=== PATIENT | female | born 1950 | race Caucasian/White ===

== ENCOUNTER 2017-11-29 19:28 | Observation (INO) | payer OTHER, BC ==
--- NOTE | 2017-11-29 19:32 | PDOC ---
History of Present Illness - General History Source: Patient Exam Limitations: No Limitations - History of Present Illness Initial Comments: 11/29/17 21:09 Patient is a 67 year old female, from [facility], with a significant past medical history of Severe Dysarthria, [place]'s, who presents to the ED with complaints of fever that began 3 days ago while at [place]. As per [facility] patient began experiencing intense fever of 102 while at home which prompted them to have her brought to the ED for further evaluation. Patient reports experiencing unproductive cough. Patient has severe dysarthria so it is difficult to completely understand what patient is verbally saying. Denies chest pain, SOB. Denies nausea, vomiting. Denies contact with sick individuals, out of state travel. Denies dysuria, hematuria, diarrhea, constipation. Denies any other symptoms. Allergies: None Social history: former smoker (last unknown). No alcohol. No illicit drugs. Surgical history PMD: Not on staff <Nicholas Shah - Last Filed: 11/29/17 21:09> <Kylie Garcia - Last Filed: 11/29/17 21:15> - General Chief Complaint: Cold Symptoms Stated Complaint: FEVER Time Seen by Provider: 11/29/17 19:32 Past History <Nicholas Shah - Last Filed: 11/29/17 21:09> - Immunization History Td Vaccination: Yes TDAP Vaccination: Yes Immunization Up to Date: Yes - Suicide/Smoking/Psychosocial Hx Smoking Status: Yes Smoking History: Never smoked Years of Tobacco Use: 0 Number of Cigarettes Smoked Daily: 20 'Breaking Loose' booklet given: 05/07/14 <Kylie Garcia - Last Filed: 11/29/17 21:15> - Past Medical History Allergies/Adverse Reactions: Allergies Allergy/AdvReac Type Severity Reaction Status Date / Time No Known Allergies Allergy Verified 08/14/14 12:30 Home Medications: Ambulatory Orders Clonazepam [KlonoPIN] 0.5 mg PO BID 08/30/12 Fluoxetine HCl 60 mg PO AM 08/14/14 Tetrabenazine [Xenazine] 25 mg PO BID 08/14/14 Acetaminophen 1,000 mg PO BID 11/29/17 Atropine 1% Ophth. Solution - 1 drop PO TID 11/29/17 Calcium Carb/Magnesium Oxid/D3 [Calcium Magnesium + D Tablet] 1 each PO DAILY Clonazepam [Klonopin -] 1 mg PO HS 11/29/17 Glycopyrrolate 1 mg PO BID 11/29/17 Lactose-Reduced Food [Ensure High Protein] 237 ml PO DAILY 11/29/17 Pediatric Multivitamin No.101 [Gummy] 1 each PO DAILY 11/29/17 Ramelteon [Rozerem] 8 mg PO HS 11/29/17 Vitamin B Complex 1 each PO DAILY 11/29/17 Review of Systems - Review of Systems Able to Perform ROS?: Yes Comments:: 11/29/17 21:10 GENERAL/CONSTITUTIONAL: +Fever No chills. No weakness. HEAD, EYES, EARS, NOSE AND THROAT: No change in vision. No ear pain or discharge. No sore throat. CARDIOVASCULAR: No chest pain or shortness of breath. RESPIRATORY: +Cough No wheezing, or hemoptysis. GASTROINTESTINAL: No nausea, vomiting, diarrhea or constipation. GENITOURINARY: No dysuria, frequency, or change in urination. MUSCULOSKELETAL: No joint or muscle swelling or pain. No neck or back pain. SKIN: No rash NEUROLOGIC: No headache, vertigo, loss of consciousness, or change in strength/ sensation. ENDOCRINE: No increased thirst. No abnormal weight change. HEMATOLOGIC/LYMPHATIC: No anemia, easy bleeding, or history of blood clots. ALLERGIC/IMMUNOLOGIC: No hives or skin allergy. All Other Systems: Reviewed and Negative <Nicholas Shah - Last Filed: 11/29/17 21:09> *Physical Exam - Vital Signs Last Vital Signs Temp Pulse Resp BP Pulse Ox 100.3 F H 86 24 132/74 96 11/29/17 20:20 11/29/17 20:20 11/29/17 19:34 11/29/17 19:34 11/29/17 20:20 - Physical Exam Comments: 11/29/17 21:10 GENERAL: Awake, alert, and fully oriented, in no acute distress HEAD: No signs of trauma EYES: PERRLA, EOMI, sclera anicteric, conjunctiva clear ENT: Auricles normal inspection, hearing grossly normal, nares patent, oropharynx clear without exudates. Moist mucosa NECK: Normal ROM, supple, no lymphadenopathy, JVD, or masses LUNGS: +Rhonchi at bases bilaterally. Breath sounds equal. No wheezes, and no crackles HEART: Regular rate and rhythm, normal S1 and S2, no murmurs, rubs or gallops ABDOMEN: Soft, nontender, normoactive bowel sounds. No guarding, no rebound. No masses EXTREMITIES: Normal range of motion, no edema. No clubbing or cyanosis. No cords, erythema, or tenderness NEUROLOGICAL: +Severe Dysarthria. Cranial nerves II through XII grossly intact. SKIN: Warm, Dry, normal turgor, no rashes or lesions noted. <Nicholas hSah - Last Filed: 11/29/17 21:09> ED Treatment Course - LABORATORY CBC & Chemistry Diagram: 11/29/17 20:10 11/29/17 20:10 - ADDITIONAL ORDERS Additional order review: Laboratory Results 11/29/17 11/29/17 11/29/17 20:20 20:10 20:10 PT with INR 13.6 H INR 1.22 PTT (Actin FS) 27.9 Sodium 136 Potassium 3.8 Chloride 102 Carbon Dioxide 26 Anion Gap 8 BUN 22 H D Creatinine 0.7 Creat Clearance w eGFR > 60 Random Glucose 111 H Calcium 9.0 Total Bilirubin 0.6 D AST 34 D ALT 14 D Alkaline Phosphatase 62 D Creatine Kinase 350 H Creatine Kinase Index 1.4 CK-MB (CK-2) 5.1 H Troponin I 0.01 Total Protein 6.7 Albumin 3.7 Urine Color Dk yellow Urine Appearance Clear Urine pH 6.0 Ur Specific [place] >= 1.030 H Urine Protein 2+ H Urine Glucose (UA) Negative Urine Ketones Trace Urine Blood 1+ H Urine Nitrite Negative Urine Bilirubin 1+ H Urine Urobilinogen 1.0 Urine RBC 2-5 Urine WBC 0-2 Urine Bacteria Few 11/29/17 20:10 RBC 4.56 MCV 85.9 MCHC 34.0 RDW 11.8 MPV 7.7 Neutrophils % 86.6 H D Lymphocytes % 5.5 L D Monocytes % 7.6 Eosinophils % 0.0 D Basophils % 0.3 - Medications Given in the ED: ED Medications Discontinued Medications Generic Name Dose Route Start Last Admin Trade Name Freq PRN Reason Stop Dose Admin Ceftriaxone Sodium 1,000 mg 11/29/17 20:34 11/29/17 20:49 Rocephin - IVPUSH 11/29/17 20:35 1,000 mg ONCE ONE Administration <Nicholas Shah - Last Filed: 11/29/17 21:09> - LABORATORY CBC & Chemistry Diagram: 11/29/17 20:10 11/29/17 20:10 <Kylie Garcia - Last Filed: 11/29/17 21:15> Medical Decision Making - Medical Decision Making 11/29/17 20:05 Pt presents to the ED after sent in from [place] for fever. Patient had fevers reported to [facility] in [place]. Hypoxic into the 90s on ED arrival with rhonchorous breath sounds. Will check labs and CXR, start antibiotics and admit for PNA vs sepsis. 11/29/17 20:35 <Kylie Garcia - Last Filed: 11/29/17 21:15> *DC/Admit/Observation/Transfer - Attestations Scribe Attestion: 11/29/17 21:10 Documentation prepared by Nicholas Shah, acting as medical billing assistant for Kylie aGrcia MD, /DO. <Nicholas Shah - Last Filed: 11/29/17 21:09> - Discharge Dispostion Admit: Yes <Kylie Garcia - Last Filed: 11/29/17 21:15> Diagnosis at time of Disposition: Pneumonia Qualifiers: Pneumonia type: due to unspecified organism Laterality: unspecified laterality Lung location: unspecified part of lung Qualified Code(s): J18.9 - Pneumonia, unspecified organism - Discharge Dispostion Condition at time of disposition: Stable - Referrals Referrals: STAFF,NOT ON [Primary Care Provider] - - Patient Instructions - Post Discharge Activity
[2017-11-29 20:24] LABS: URINE APPEARANCE Clear; URINE BILIRUBIN 1+ (NEGATIVE); URINE GLUCOSE (UA) Negative (NEGATIVE); URINE KETONE Trace (NEGATIVE); URINE NITRITE Negative (NEGATIVE)
[2017-11-29 20:26] LABS: URINE BLOOD 1+ (NEGATIVE); URINE COLOR DK YELLOW; URINE PROTEIN 2+ (NEGATIVE)
[2017-11-29 20:33] LABS: BASO % 0.3 % (0-2.0); HEMATOCRIT 39.2 % (32.4-45.2); HEMOGLOBIN 13.4 GM/dl (10.7-15.3); LYMPH % 5.5 % (8-40); MCH 29.3 pg (25.7-33.7); MEAN CELL VOLUME 85.9 fl (80-96); MEAN PLT VOLUME 7.7 fl (7.5-11.1); MONO % 7.6 % (3.8-10.2); NEUT % 86.6 % (42.8-82.8); PLATELET COUNT 317 K/MM3 (134-434); RBC 4.56 M/mm3 (3.60-5.2); RDW 11.8 % (11.6-15.6); WHITE BLOOD COUNT 11.4 K/mm3 (4.0-10.8)
[2017-11-29] MEDS ORDERED: AZITHROMYCIN IVPB 500 MG in DEXTROSE 5%-WATER - 250 ML IVPB ONE (20:34)
[2017-11-29 20:40] LABS: ACTIVATED PTT 27.9 SECONDS (24.0-38.9)
[2017-11-29 20:42] LABS: URINE BACTERIA FEW /hpf (NEGATIVE); URINE WBC 0-2 (0-5)
[2017-11-29 20:43] LABS: ALBUMIN 3.7 g/dl (3.5-5.0); ALK PHOS 62 U/L (32-92); ANION GAP 8 (8-16); BILIRUBIN,TOTAL 0.6 mg/dl (0.2-1.0); BLOOD UREA NITROGEN 22 mg/dl (7-18); CHLORIDE 102 mmol/L (98-107); CO2 26 mmol/L (22-28); CREATININE 0.7 mg/dl (0.6-1.3); GLUCOSE,RANDOM 111 mg/dl (74-106); POTASSIUM 3.8 mmol/L (3.5-5.1); SGOT/AST 34 U/L (10-42); SGPT/ALT 14 U/L (10-40); SODIUM 136 mmol/L (136-145); TOT PROT 6.7 g/dl (6.4-8.3)
[2017-11-29] MEDS ORDERED: AZITHROMYCIN 500 MG VIAL IVPB ONE (20:43)
[2017-11-29] MEDS ORDERED: cefTRIAXone SODIUM 1 GM VIAL ONE (20:43)
[2017-11-29 20:44] LABS: INR 1.22 (0.82-1.09); PROTHROMBIN TIME (PATIENT) 13.6 SEC (10.2-13.0)
[2017-11-29 21:50] LABS: VENOUS PC02 44.9 mmHg (38-52); VENOUS PH 7.4 (7.32-7.42)
[2017-11-29] MEDS ORDERED: TETRABENAZINE 25 MG PO SCH (22:00)
[2017-11-29] MEDS ORDERED: HEPARIN NA (PORCINE) 5,000 UNITS/ML 1ML VIAL ONE (22:15)
[2017-11-29] MEDS: HEPARIN NA (PORCINE) 5,000 UNITS/ML 1ML VIAL SQ SCH (22:18)
[2017-11-30 01:08] VITALS: BMI 20.5
[2017-11-30] MEDS: GLYCOPYRROLATE 1 MG TABLET PO SCH ×3 (01:25→21:11)
[2017-11-30] MEDS: ATROPINE SO4 1% OPHTH SOLN 5 ML BOTTLE OU SCH ×4 (01:26→21:10)
[2017-11-30] MEDS: clonazePAM 0.5 MG TABLET PO SCH ×4 (01:26→21:11)
[2017-11-30] MEDS: RAMELTEON 8 MG TABLET PO SCH ×2 (01:27→21:11)
[2017-11-30] MEDS: ACETAMINOPHEN 500 MG TABLET (FP) PO SCH ×2 (01:28→09:18)
[2017-11-30] MEDS: FLUoxetine HCL 20 MG CAPSULE (FP) PO SCH ×2 (01:34→09:15)
[2017-11-30] MEDS: HEPARIN NA (PORCINE) 5,000 UNITS/ML 1ML VIAL SQ SCH ×3 (06:12→21:11)
[2017-11-30] MEDS ORDERED: PT OWN MED DRAWER 7, Y5N ONE ×5 (09:09→21:16)
[2017-11-30] MEDS: CEFTRIAXONE 1 G/50 ML PREMIX 50 ML IVPB SCH (09:13)
[2017-11-30] MEDS: CALCIUM 500MG/VIT-D 200 UNITS COMBO TABLET (FP) PO SCH (09:14)
[2017-11-30] MEDS: MULTIVITAMINS (DAILY MVI) TABLET (FP) PO SCH (09:14)
[2017-11-30] MEDS: AZITHROMYCIN IVPB 250 ML IVPB SCH (09:15)
[2017-11-30] MEDS: VITAMIN B COMP W-C 1 EA TABLET PO SCH (09:18)
--- NOTE | 2017-11-30 09:45 | PN ---
Progress Note (short form) - Note Progress Note: ID Consult dictated Acute influenza A ? Secondary bacterial pneumonia Huntingtons chorea Tamiflu Droplet precautions Continue zithromax/ ceftriaxone
[2017-11-30] MEDS ORDERED: ACETAMINOPHEN 1000 MG/100 ML VIAL (NON FORMULARY) IVPB PRN (09:46)
--- NOTE | 2017-11-30 09:56 | PN ---
Physical Exam: SUBJECTIVE: Patient seen and examined this AM. No acute events overnight. She remained fever free but using tylenol as ordered. She is found to be Flu A +. CXR documented by rads as neg. OBJECTIVE: Vital Signs Period Temp Pulse Resp BP Sys/Wills Pulse Ox Last 24 Hr 98.0 F-100.3 F 66-86 18-24 106-132/59-74 90-99 GENERAL: The patient is awake, alert, and fully oriented, in no acute distress. HEAD: Normal with no signs of trauma. LUNGS: Breath sounds equal, clear to auscultation bilaterally, no wheezes, no crackles, no accessory muscle use. HEART: Regular rate and rhythm, S1, S2 without murmur, rub or gallop. ABDOMEN: Soft, nontender, nondistended, normoactive bowel sounds, no guarding, no rebound, no hepatosplenomegaly, no masses. EXTREMITIES: 2+ pulses, warm, well-perfused, no edema. NEUROLOGICAL: Normal speech, gait not observed. PSYCH: Normal mood, normal affect. SKIN: Warm, dry, normal turgor, no rashes or lesions noted Laboratory Results - last 24 hr 11/29/17 11/29/17 11/29/17 20:10 20:10 20:10 WBC 11.4 H RBC 4.56 Hgb 13.4 Hct 39.2 MCV 85.9 MCH 29.3 MCHC 34.0 RDW 11.8 Plt Count 317 D MPV 7.7 Neutrophils % 86.6 H D Lymphocytes % 5.5 L D Monocytes % 7.6 Eosinophils % 0.0 D Basophils % 0.3 PT with INR 13.6 H INR 1.22 PTT (Actin FS) 27.9 VBG pH 7.40 POC VBG pCO2 44.9 POC VBG pO2 115.0 H Mixed VBG HCO3 27.4 H Sodium Potassium Chloride Carbon Dioxide Anion Gap BUN Creatinine Creat Clearance w eGFR Random Glucose Lactic Acid Calcium Total Bilirubin AST ALT Alkaline Phosphatase Creatine Kinase Creatine Kinase Index CK-MB (CK-2) Troponin I Total Protein Albumin Urine Color Urine Appearance Urine pH Ur Specific [place] Urine Protein Urine Glucose (UA) Urine Ketones Urine Blood Urine Nitrite Urine Bilirubin Urine Urobilinogen Urine RBC Urine WBC Urine Bacteria Blood Type Antibody Screen 11/29/17 11/29/17 11/29/17 20:10 20:10 20:10 WBC RBC Hgb Hct MCV MCH MCHC RDW Plt Count MPV Neutrophils % Lymphocytes % Monocytes % Eosinophils % Basophils % PT with INR INR PTT (Actin FS) VBG pH POC VBG pCO2 POC VBG pO2 Mixed VBG HCO3 Sodium 136 Potassium 3.8 Chloride 102 Carbon Dioxide 26 Anion Gap 8 BUN 22 H D Creatinine 0.7 Creat Clearance w eGFR > 60 Random Glucose 111 H Lactic Acid 0.7 Calcium 9.0 Total Bilirubin 0.6 D AST 34 D ALT 14 D Alkaline Phosphatase 62 D Creatine Kinase 350 H Creatine Kinase Index 1.4 CK-MB (CK-2) 5.1 H Troponin I 0.01 Total Protein 6.7 Albumin 3.7 Urine Color Urine Appearance Urine pH Ur Specific [place] Urine Protein Urine Glucose (UA) Urine Ketones Urine Blood Urine Nitrite Urine Bilirubin Urine Urobilinogen Urine RBC Urine WBC Urine Bacteria Blood Type O POSITIVE Antibody Screen Negative 11/29/17 11/29/17 20:20 21:30 WBC RBC Hgb Hct MCV MCH MCHC RDW Plt Count MPV Neutrophils % Lymphocytes % Monocytes % Eosinophils % Basophils % PT with INR INR PTT (Actin FS) VBG pH POC VBG pCO2 POC VBG pO2 Mixed VBG HCO3 Sodium Potassium Chloride Carbon Dioxide Anion Gap BUN Creatinine Creat Clearance w eGFR Random Glucose Lactic Acid Calcium Total Bilirubin AST ALT Alkaline Phosphatase Creatine Kinase Creatine Kinase Index CK-MB (CK-2) Troponin I Total Protein Albumin Urine Color Dk yellow Urine Appearance Clear Urine pH 6.0 Ur Specific [place] >= 1.030 H Urine Protein 2+ H Urine Glucose (UA) Negative Urine Ketones Trace Urine Blood 1+ H Urine Nitrite Negative Urine Bilirubin 1+ H Urine Urobilinogen 1.0 Urine RBC 2-5 Urine WBC 0-2 Urine Bacteria Few Blood Type O POSITIVE Antibody Screen Active Medications Generic Name Dose Route Start Last Admin Trade Name Freq PRN Reason Stop Dose Admin Acetaminophen 1,000 mg 11/30/17 09:46 Ofirmev Injection - IVPB Q6H PRN FEVER OR PAIN Atropine Sulfate 1 drop 11/29/17 22:00 11/30/17 06:13 Atropine 1% Ophth. Solution - OU 1 drop TID SAVANNAH Administration Calcium Carbonate/Cholecalciferol 1 tab 11/30/17 10:00 11/30/17 09:14 Os-Bethel 500+D - PO 1 tab DAILY SAVANNAH Administration Clonazepam 1 mg 11/29/17 22:00 01/06/18 01:26 Klonopin - PO 1 mg HS SAVANNAH Administration Clonazepam 0.5 mg 11/30/17 10:00 11/30/17 09:14 Klonopin - PO 0.5 mg BID@1000,1600 SAVANNAH Administration Fluoxetine HCl 60 mg 11/29/17 22:00 11/30/17 09:15 Prozac - PO 60 mg DAILY SAVANNAH Administration Glycopyrrolate 1 mg 11/29/17 22:00 11/30/17 09:18 Robinul - PO 1 mg BID SAVANNAH Administration Heparin Sodium (Porcine) 5,000 unit 11/29/17 22:00 11/30/17 06:12 Heparin - SQ 5,000 unit TID SAVANNAH Administration CEFTRIAXONE 1 G/50 ML PREMIX 50 mls @ 100 mls/hr 11/30/17 10:00 11/30/17 09: 13 Ceftriaxone 1 Gm-D5w Bag IVPB 100 mls/hr DAILY SAVANNAH Administration Azithromycin 250 mls @ 250 mls/hr 11/30/17 10:00 11/30/17 09:15 Zithromax 500mg Ivpb (Pre-Docked) IVPB 250 mls/hr DAILY SAVANNAH Administration Multivit/Ca Carb/B Cmplx/FA/Prenat 1 tablet 11/30/17 10:00 11/30/17 09:18 Nephro-Vinnie - PO 1 tablet DAILY SAVANNAH Administration Multivitamins/Minerals/Vitamin C 1 tab 11/30/17 10:00 11/30/17 09:14 Tab-A-Vit - PO 1 tab DAILY SAVANNAH Administration Non-Formulary Medication 25 mg 11/29/17 22:00 Tetrabenazine [Xenazine] PO BID SAVANNAH Oseltamivir Phosphate 75 mg 11/30/17 10:00 Tamiflu - PO 12/05/17 09:59 BID SAVANNAH Pantoprazole Sodium 40 mg 11/30/17 10:00 Protonix - PO DAILY SAVANNAH Ramelteon 8 mg 11/29/17 22:00 11/30/17 01:27 Rozerem PO 8 mg HS SAVANNAH Administration ASSESSMENT/PLAN: This 67 yr old female who resided in a correction home presents with 2 days of general malaise and fevers with a finding of Flu A + Pt with significant history of [place]'s and severe dysarthria. 1. Influenza A + -Tamiflu started -appreciate ID input this AM -continuing with azithro and ceftriaxone per ID -tylenol PRN for fever and aches -isolation 2. FEN -po fluids encouraged -regular diet -MVI 3. VTE -heparin SQ 4. [place]tons -continue Rozerem and Xenazine (may take own meds if not offered in house) Visit type - Emergency Visit Emergency Visit: Yes ED Registration Date: 11/29/17 Care time: The patient presented to the Emergency Department on the above date and was hospitalized for further evaluation of their emergent condition. - New Patient This patient is new to me today: Yes Date on this admission: 11/30/17 - Critical Care Critical Care patient: No - Discharge Referral Referred to [facility] Med P.C.: No
[2017-11-30] MEDS ORDERED: [UNRECOGNIZED DRUG - OTHER] PO SCH (10:00)
[2017-11-30] MEDS ORDERED: [UNRECOGNIZED DRUG - REMARK] PO SCH (10:00)
[2017-11-30] MEDS ORDERED: PATIENT'S OWN MEDICATION (NON-FORMULARY) (Vitamin B Complex [Vitamin B Complex] 1 EACH) PO SCH (10:00)
--- NOTE | 2017-11-30 10:50 | EKG ---
Test Reason : Blood Pressure : / mmHG Vent. Rate : 085 BPM Atrial Rate : 085 BPM P-R Int : 152 ms QRS Dur : 072 ms QT Int : 410 ms P-R-T Axes : 090 026 050 degrees QTc Int : 487 ms NORMAL SINUS RHYTHM CANNOT RULE OUT ANTERIOR INFARCT , AGE UNDETERMINED NO PREVIOUS ECGS AVAILABLE Confirmed by SAKSHI CHEN MD ([id number]) on 11/30/2017 10:49:48 AM Referred By: TAMMY Confirmed By:SAKSHI CHEN MD
[2017-11-30] MEDS: OSELTAMIVIR PHOSPHATE 75 MG CAPSULE PO SCH ×2 (11:00→21:12)
[2017-11-30] MEDS: PANTOPRAZOLE 40 MG TABLET (FP) PO SCH (11:00)
[2017-11-30] MEDS: TETRABENAZINE 25 MG PO SCH (21:17)
[2017-12-01] MEDS: HEPARIN NA (PORCINE) 5,000 UNITS/ML 1ML VIAL SQ SCH ×3 (05:36→21:29)
[2017-12-01] MEDS: ATROPINE SO4 1% OPHTH SOLN 5 ML BOTTLE OU SCH ×3 (05:37→21:29)
--- NOTE | 2017-12-01 07:02 | HP ---
This H/P is for pt admission on 11/30/17 Chief Complaint: Fever, chills History of present illness: Pt is from [facility] where the staff found her to have a fever and chills for 2 days prior to admission to ER. Pt states she has a significant history of severe dysarthria and Huntingtons disease and she takes many medications for this. She developed recent fever, chils and body aches for 2 days. She had received the flu shot PCP: not on staff Recent Travel: denies PAST MEDICAL HISTORY: [place]'s disease, severe dysarthria PAST SURGICAL HISTORY: denies Social History: Smoking:former Alcohol:denies Drugs: denies Family History: Allergies No Known Allergies Allergy (Verified 08/14/14 12:30) HOME MEDICATIONS: Home Medications Medication Instructions Recorded Clonazepam [KlonoPIN] 0.5 mg PO BID 08/30/12 Fluoxetine HCl 60 mg PO AM 08/14/14 Tetrabenazine [Xenazine] 25 mg PO BID 08/14/14 Acetaminophen 1,000 mg PO BID 11/29/17 Atropine 1% Ophth. Solution - 1 drop PO TID 11/29/17 Calcium Carb/Magnesium Oxid/D3 1 each PO DAILY 11/29/17 [Calcium Magnesium + D Tablet] Clonazepam [Klonopin -] 1 mg PO HS 11/29/17 Glycopyrrolate 1 mg PO BID 11/29/17 Lactose-Reduced Food [Ensure High 237 ml PO DAILY 11/29/17 Protein] Pediatric Multivitamin No.101 1 each PO DAILY 11/29/17 [Gummy] Ramelteon [Rozerem] 8 mg PO HS 11/29/17 Vitamin B Complex 1 each PO DAILY 11/29/17 REVIEW OF SYSTEMS CONSTITUTIONAL: Absent: +fever, +chills, diaphoresis, +generalized weakness, +malaise, loss of appetite, weight change HEENT: Absent: rhinorrhea, nasal congestion, throat pain, throat swelling, difficulty swallowing, mouth swelling, ear pain, eye pain, visual changes CARDIOVASCULAR: Absent: chest pain, syncope, palpitations, irregular heart rate, lightheadedness , peripheral edema RESPIRATORY: Absent: cough, shortness of breath, dyspnea with exertion, orthopnea, wheezing, stridor, hemoptysis GASTROINTESTINAL: Absent: abdominal pain, abdominal distension, nausea, vomiting, diarrhea, constipation, melena, hematochezia GENITOURINARY: Absent: dysuria, frequency, urgency, hesitancy, hematuria, flank pain, genital pain MUSCULOSKELETAL: Absent: +myalgia, arthralgia, joint swelling, back pain, neck pain SKIN: Absent: rash, itching, pallor HEMATOLOGIC/IMMUNOLOGIC: Absent: easy bleeding, easy bruising, lymphadenopathy, frequent infections ENDOCRINE: Absent: unexplained weight gain, unexplained weight loss, heat intolerance, cold intolerance NEUROLOGIC: Absent: headache, + chronic focal weakness or paresthesias, dizziness, unsteady gait, seizure, mental status changes, bladder or bowel incontinence PSYCHIATRIC: Absent: anxiety, depression, suicidal or homicidal ideation, hallucinations. PHYSICAL EXAMINATION Vital Signs - 24 hr 11/30/17 11/30/17 11/30/17 08:11 19:51 19:52 Temperature 99 F Pulse Rate 60 Respiratory 18 18 Rate Blood Pressure 117/63 O2 Sat by Pulse 95 99 Oximetry (%) 11/30/17 12/01/17 12/01/17 23:39 05:20 06:00 Temperature 98.7 F 98.1 F Pulse Rate 64 Respiratory 18 18 Rate Blood Pressure 137/67 O2 Sat by Pulse 99 96 Oximetry (%) GENERAL: Awake, alert, and fully oriented, in no acute distress. HEAD: Normal with no signs of trauma. EYES: Pupils equal, round and reactive to light, extraocular movements intact, sclera anicteric, conjunctiva clear. No lid lag. EARS, NOSE, THROAT: Ears normal, nares patent, oropharynx clear without exudates. Moist mucous membranes. NECK: Normal range of motion, supple without lymphadenopathy, JVD, or masses. LUNGS: Breath sounds equal, clear to auscultation bilaterally. No wheezes, and no crackles. No accessory muscle use. HEART: Regular rate and rhythm, normal S1 and S2 without murmur, rub or gallop. ABDOMEN: Soft, nontender, not distended, normoactive bowel sounds, no guarding, no rebound, no masses. No hepatomegaly or splenomegaly. MUSCULOSKELETAL: Normal range of motion at all joints. No bony deformities or tenderness. No CVA tenderness. UPPER EXTREMITIES: 2+ pulses, warm, well-perfused. No cyanosis. No clubbing. No peripheral edema. LOWER EXTREMITIES: 2+ pulses, warm, well-perfused. No calf tenderness. No peripheral edema. NEUROLOGICAL: Cranial nerves II-XII intact. Normal speech. Normal gait. PSYCHIATRIC: Cooperative. Good eye contact. Appropriate mood and affect. SKIN: Warm, dry, normal turgor, no rashes or lesions noted, normal capillary refill. ASSESSMENT/PLAN: This 67 yr old female from assisted living home presented with fever and chills. Her flu swab was found to be positive for Influenza A +. 1. Influenza A -CXR neg for loculations or infiltrates -tylenol for aches and fever -isolation -tamiflu -azithromycin/ceftriaxone -ID consult 2. Huntingtons -continue home meds 3. FEN -po hydration -po nutrition encouraged 4. DVT/GI prop 5. Admission for treatment of influenza Visit type - Emergency Visit Emergency Visit: Yes ED Registration Date: 11/29/17 Care time: The patient presented to the Emergency Department on the above date and was hospitalized for further evaluation of their emergent condition. - New Patient This patient is new to me today: Yes Date on this admission: 12/01/17 - Critical Care Critical Care patient: No
--- NOTE | 2017-12-01 07:19 | PN ---
Physical Exam: SUBJECTIVE: Patient seen and examined this AM. No acute events over night. Pt remains on isolation and IV ABT with tamiflu. Afebrile OBJECTIVE: Vital Signs Period Temp Pulse Resp BP Sys/Wills Pulse Ox Last 24 Hr 98.1 F-99 F 60-64 18-18 117-137/63-67 95-99 GENERAL: The patient is awake, alert, and fully oriented, in no acute distress. HEAD: Normal with no signs of trauma. EYES: PERRL, extraocular movements intact, sclera anicteric, conjunctiva clear. No ptosis. ENT: Ears normal, nares patent, oropharynx clear without exudates, moist mucous membranes. + dysarthria NECK: Trachea midline, full range of motion, supple. LUNGS: Breath sounds equal, clear to auscultation bilaterally, no wheezes, no crackles, no accessory muscle use. +mild cough HEART: Regular rate and rhythm, S1, S2 without murmur, rub or gallop. ABDOMEN: Soft, nontender, nondistended, normoactive bowel sounds, no guarding, no rebound, no hepatosplenomegaly, no masses. EXTREMITIES: 2+ pulses, warm, well-perfused, no edema. NEUROLOGICAL: Cranial nerves II through XII grossly intact. Normal speech, gait not observed. PSYCH: Normal mood, normal affect. SKIN: Warm, dry, normal turgor, no rashes or lesions noted Active Medications Generic Name Dose Route Start Last Admin Trade Name Freq PRN Reason Stop Dose Admin Acetaminophen 1,000 mg 11/30/17 09:46 Ofirmev Injection - IVPB Q6H PRN FEVER OR PAIN Atropine Sulfate 1 drop 11/29/17 22:00 12/01/17 05:37 Atropine 1% Ophth. Solution - OU 1 drop TID SAVANNAH Administration Calcium Carbonate/Cholecalciferol 1 tab 11/30/17 10:00 11/30/17 09:14 Os-Bethel 500+D - PO 1 tab DAILY SAVANNAH Administration Clonazepam 1 mg 11/29/17 22:00 11/30/17 21:11 Klonopin - PO 1 mg HS SAVANNAH Administration Clonazepam 0.5 mg 11/30/17 10:00 11/30/17 16:09 Klonopin - PO 0.5 mg BID@1000,1600 SAVANNAH Administration Fluoxetine HCl 60 mg 11/29/17 22:00 11/30/17 09:15 Prozac - PO 60 mg DAILY SAVANNAH Administration Glycopyrrolate 1 mg 11/29/17 22:00 11/30/17 21:11 Robinul - PO 1 mg BID SAVANNAH Administration Heparin Sodium (Porcine) 5,000 unit 11/29/17 22:00 12/01/17 05:36 Heparin - SQ 5,000 unit TID SAVANNAH Administration CEFTRIAXONE 1 G/50 ML PREMIX 50 mls @ 100 mls/hr 11/30/17 10:00 11/30/17 09: 13 Ceftriaxone 1 Gm-D5w Bag IVPB 100 mls/hr DAILY SAVANNAH Administration Azithromycin 250 mls @ 250 mls/hr 11/30/17 10:00 11/30/17 09:15 Zithromax 500mg Ivpb (Pre-Docked) IVPB 250 mls/hr DAILY SAVANNAH Administration Multivit/Ca Carb/B Cmplx/FA/Prenat 1 tablet 11/30/17 10:00 11/30/17 09:18 Nephro-Vinnie - PO 1 tablet DAILY SAVANNAH Administration Multivitamins/Minerals/Vitamin C 1 tab 11/30/17 10:00 11/30/17 09:14 Tab-A-Vit - PO 1 tab DAILY SAVANNAH Administration Non-Formulary Medication 25 mg 11/30/17 22:00 11/30/17 21:17 Tetrabenazine [Xenazine] PO 25 mg 1000,2200 SAVANNAH Administration Oseltamivir Phosphate 75 mg 11/30/17 10:00 11/30/17 21:12 Tamiflu - PO 12/05/17 09:59 75 mg BID SAVANNAH Administration Pantoprazole Sodium 40 mg 11/30/17 10:00 11/30/17 11:00 Protonix - PO 40 mg DAILY SAVANNAH Administration Ramelteon 8 mg 11/29/17 22:00 11/30/17 21:11 Rozerem PO 8 mg HS SAVANNAH Administration ASSESSMENT/PLAN: This 67 yr old female with + influenza A and hx of [place]'s disease. Family very involved with pt care. 1. Influenza A + -appreciate Dr. Hatfield consult -feels CXR could be suspicious for ? PNA, continue with azithromax and ceftriaxone for now -Day 2 of Tamiflu -remained afebrile, tylenol for aches and fever -remains on isolation -staff to contact [facility] for policy of return of pt if stable tomorrow ( may need x days on treatment and fever free before return with + flu) 2. Huntingtons' disease -continue with meds, may take own if not available in house 3. FEN -continue with hydration and nutrition 4. DVT/GI -heparin -protonix Visit type - Emergency Visit Emergency Visit: Yes ED Registration Date: 11/29/17 Care time: The patient presented to the Emergency Department on the above date and was hospitalized for further evaluation of their emergent condition. - New Patient This patient is new to me today: No - Critical Care Critical Care patient: No - Discharge Referral Referred to [facility] Med P.C.: No
[2017-12-01 08:49] LABS: BASO % 0.8 % (0-2.0); EOS % 0.6 % (0-4.5); HEMATOCRIT 35.6 % (32.4-45.2); HEMOGLOBIN 12.4 GM/dl (10.7-15.3); LYMPH % 19.8 % (8-40); MCH 29.8 pg (25.7-33.7); MCHC 34.8 g/dl (32.0-36.0); MEAN CELL VOLUME 85.6 fl (80-96); MEAN PLT VOLUME 8.3 fl (7.5-11.1); MONO % 9.9 % (3.8-10.2); NEUT % 68.9 % (42.8-82.8); PLATELET COUNT 290 K/MM3 (134-434); RBC 4.15 M/mm3 (3.60-5.2); RDW 11.6 % (11.6-15.6); WHITE BLOOD COUNT 4.5 K/mm3 (4.0-10.8)
[2017-12-01 09:03] LABS: ALBUMIN 3.2 g/dl (3.5-5.0); ALK PHOS 73 U/L (32-92); ANION GAP 7 (8-16); BILIRUBIN,TOTAL 0.3 mg/dl (0.2-1.0); BLOOD UREA NITROGEN 17 mg/dl (7-18); CALCIUM 8.6 mg/dl (8.4-10.2); CHLORIDE 106 mmol/L (98-107); CO2 27 mmol/L (22-28); CREATININE 0.7 mg/dl (0.6-1.3); GLUCOSE,RANDOM 92 mg/dl (74-106); POTASSIUM 3.7 mmol/L (3.5-5.1); SGOT/AST 54 U/L (10-42); SGPT/ALT 25 U/L (10-40); SODIUM 140 mmol/L (136-145); TOT PROT 5.9 g/dl (6.4-8.3)
[2017-12-01] MEDS ORDERED: PT OWN MED DRAWER 7, Y5N ONE ×4 (09:11→21:18)
[2017-12-01] MEDS: CALCIUM 500MG/VIT-D 200 UNITS COMBO TABLET (FP) PO SCH (09:42)
[2017-12-01] MEDS: PANTOPRAZOLE 40 MG TABLET (FP) PO SCH (09:42)
[2017-12-01] MEDS: OSELTAMIVIR PHOSPHATE 75 MG CAPSULE PO SCH ×2 (09:42→21:26)
[2017-12-01] MEDS: VITAMIN B COMP W-C 1 EA TABLET PO SCH (09:43)
[2017-12-01] MEDS: MULTIVITAMINS (DAILY MVI) TABLET (FP) PO SCH (09:43)
[2017-12-01] MEDS: CEFTRIAXONE 1 G/50 ML PREMIX 50 ML IVPB SCH (09:44)
[2017-12-01] MEDS: GLYCOPYRROLATE 1 MG TABLET PO SCH ×2 (09:44→21:28)
[2017-12-01] MEDS: FLUoxetine HCL 20 MG CAPSULE (FP) PO SCH (09:44)
[2017-12-01] MEDS: clonazePAM 0.5 MG TABLET PO SCH ×3 (09:44→21:26)
[2017-12-01] MEDS: AZITHROMYCIN IVPB 250 ML IVPB SCH (09:45)
[2017-12-01] MEDS: TETRABENAZINE 25 MG PO SCH ×2 (09:45→21:29)
[2017-12-01] MEDS: RAMELTEON 8 MG TABLET PO SCH (21:28)
[2017-12-02 06:14] VITALS: TEMP 98
[2017-12-02] MEDS: HEPARIN NA (PORCINE) 5,000 UNITS/ML 1ML VIAL SQ SCH ×2 (06:36→13:53)
[2017-12-02] MEDS: ATROPINE SO4 1% OPHTH SOLN 5 ML BOTTLE OU SCH ×2 (06:36→13:54)
--- NOTE | 2017-12-02 07:54 | DS ---
Physical Exam: SUBJECTIVE: Patient seen and examined, reports feeling much improved, denies any tactile fevers, anxious to go home OBJECTIVE: : Pt is from [facility] assisted housing where the staff found her to have a fever and chills for 2 days prior to admission to ER. Pt states she has a significant history of severe dysarthria and Huntingtons disease and she takes many medications for this. She developed recent fever, chils and body aches for 2 days. She had received the flu shot Vital Signs Period Temp Pulse Resp BP Sys/Wills Pulse Ox Last 24 Hr 98.0 F-98.2 F 63-66 17-19 110-143/58-72 93-98 PHYSICAL EXAM GENERAL: The patient is awake, alert, and fully oriented, in no acute distress. HEAD: Normal with no signs of trauma. EYES: PERRL, extraocular movements intact, sclera anicteric, conjunctiva clear. ENT: Ears normal, nares patent, oropharynx clear without exudates, moist mucous membranes. NECK: Trachea midline, full range of motion, supple. LUNGS: Breath sounds equal, clear to auscultation bilaterally, no wheezes, no crackles, no accessory muscle use. HEART: Regular rate and rhythm, S1, S2 without murmur, rub or gallop. ABDOMEN: Soft, nontender, nondistended, normoactive bowel sounds, no guarding, no rebound, no hepatosplenomegaly, no masses. EXTREMITIES: 2+ pulses, warm, well-perfused, no edema. NEUROLOGICAL: severe dysarthria, Cranial nerves II through XII grossly intact. Normal speech, gait not observed. PSYCH: Normal mood, normal affect. SKIN: Warm, dry, normal turgor, no rashes or lesions noted. LABS Laboratory Results - last 24 hr 12/01/17 12/01/17 08:00 08:00 WBC 4.5 D RBC 4.15 Hgb 12.4 Hct 35.6 MCV 85.6 MCH 29.8 MCHC 34.8 RDW 11.6 Plt Count 290 MPV 8.3 Neutrophils % 68.9 D Lymphocytes % 19.8 D Monocytes % 9.9 Eosinophils % 0.6 D Basophils % 0.8 Sodium 140 Potassium 3.7 Chloride 106 Carbon Dioxide 27 Anion Gap 7 L BUN 17 D Creatinine 0.7 Creat Clearance w eGFR > 60 Random Glucose 92 Calcium 8.6 Total Bilirubin 0.3 D AST 54 H D ALT 25 D Alkaline Phosphatase 73 Total Protein 5.9 L Albumin 3.2 L Microbiology 11/29/17 20:10 Blood - Peripheral Venous Blood Culture - Preliminary NO GROWTH OBTAINED AFTER 48 HOURS, INCUBATION TO CONTINUE FOR 3 DAYS. 11/29/17 20:10 Blood - Peripheral Venous Blood Culture - Preliminary NO GROWTH OBTAINED AFTER 48 HOURS, INCUBATION TO CONTINUE FOR 3 DAYS. 11/29/17 20:10 Urine - Urine Clean Catch Urine Culture - Final NO GROWTH OBTAINED 11/29/17 21:30 Nasopharyngeal Swab Influenza Types A,B Antigen (VIVIANE) - Final , + influenza a 11/29/17 21:30 Nasopharyngeal Swab - Final IMAGING chest xray: no infiltrate no effusion noted HOSPITAL COURSE: 1. Patient was admitted from the emergency department to observation for Influenza A +, Dr. Hatfield, infectious disease, consulted and followed patient throughout admission, patient as treated with tamiflu (11/29/17 12/02/17). In addition she was treated empirically with Zithromax and rocephin (11/29/17 -). patient has a past medical history aguilar's chorea, home medications was continue. PLAN -discharge to assisted living facil [facility], visiting nurse consulted - continue tamiflu for a total of 5 days Date of Admission:11/29/17 Date of Discharge: 12/02/17 Minutes to complete discharge: 45 Discharge Summary Reason For Visit: FEVER Current Active Problems Pneumonia (Acute) Condition: Stable - Instructions Referrals: STAFF,NOT ON [Primary Care Provider] - - Home Medications Comprehensive Discharge Medication List: Ambulatory Orders Clonazepam [KlonoPIN] 0.5 mg PO BID 08/30/12 Fluoxetine HCl 60 mg PO AM 08/14/14 Tetrabenazine [Xenazine] 25 mg PO BID 08/14/14 Acetaminophen 1,000 mg PO BID 11/29/17 Atropine 1% Ophth. Solution - 1 drop PO TID 11/29/17 Calcium Carb/Magnesium Oxid/D3 [Calcium Magnesium + D Tablet] 1 each PO DAILY Clonazepam [Klonopin -] 1 mg PO HS 11/29/17 Glycopyrrolate 1 mg PO BID 11/29/17 Lactose-Reduced Food [Ensure High Protein] 237 ml PO DAILY 01/05/18 Pediatric Multivitamin No.101 [Gummy] 1 each PO DAILY 11/29/17 Ramelteon [Rozerem] 8 mg PO HS 11/29/17 Vitamin B Complex 1 each PO DAILY 11/29/17 This patient is new to me today: Yes Date on this admission: 12/02/17 Emergency Visit: Yes ED Registration Date: 11/29/17 Care time: The patient presented to the Emergency Department on the above date and was hospitalized for further evaluation of their emergent condition. Critical Care patient: No - Discharge Referral Referred to [facility] Med P.C.: No
--- NOTE | 2017-12-02 09:05 | PN ---
Progress Note, Physician History of Present Illness: Awake, alert Dysarthric Offers no complaints Temps down Afebrile WBC improved - Current Medication List Current Medications: Active Medications Acetaminophen (Ofirmev Injection -) 1,000 mg IVPB Q6H PRN PRN Reason: FEVER OR PAIN Atropine Sulfate (Atropine 1% Ophth. Solution -) 1 drop OU TID [facility] Last Admin: 12/02/17 06:36 Dose: 1 drop Calcium Carbonate/Cholecalciferol (Os-Bethel 500+D -) 1 tab PO DAILY [facility] Last Admin: 12/01/17 09:42 Dose: 1 tab Clonazepam (Klonopin -) 1 mg PO HS [facility] Last Admin: 12/01/17 21:26 Dose: 1 mg Clonazepam (Klonopin -) 0.5 mg PO BID@1000,1600 [facility] Last Admin: 12/01/17 17:06 Dose: 0.5 mg Fluoxetine HCl (Prozac -) 60 mg PO DAILY [facility] Last Admin: 12/01/17 09:44 Dose: 60 mg Glycopyrrolate (Robinul -) 1 mg PO BID [facility] Last Admin: 12/01/17 21:28 Dose: 1 mg Heparin Sodium (Porcine) (Heparin -) 5,000 unit SQ TID [facility] Last Admin: 12/02/17 06:36 Dose: 5,000 unit CEFTRIAXONE 1 G/50 ML PREMIX (Ceftriaxone 1 Gm-D5w Bag) 50 mls @ 100 mls/hr IVPB DAILY [facility] Last Admin: 12/01/17 09:44 Dose: 100 mls/hr Azithromycin (Zithromax 500mg Ivpb (Pre-Docked)) 250 mls @ 250 mls/hr IVPB DAILY [facility] Last Admin: 12/01/17 09:45 Dose: 250 mls/hr Multivit/Ca Carb/B Cmplx/FA/Prenat (Nephro-Vinnie -) 1 tablet PO DAILY [facility] Last Admin: 12/01/17 09:43 Dose: 1 tablet Multivitamins/Minerals/Vitamin C (Tab-A-Vit -) 1 tab PO DAILY [facility] Last Admin: 12/01/17 09:43 Dose: 1 tab Non-Formulary Medication (Tetrabenazine [Xenazine]) 25 mg PO 1000,2200 [facility] Last Admin: 12/01/17 21:29 Dose: 25 mg Oseltamivir Phosphate (Tamiflu -) 75 mg PO BID [facility] Stop: 12/05/17 09:59 Last Admin: 12/01/17 21:26 Dose: 75 mg Pantoprazole Sodium (Protonix -) 40 mg PO DAILY [facility] Last Admin: 12/01/17 09:42 Dose: 40 mg Ramelteon (Rozerem) 8 mg PO HS [facility] Last Admin: 12/01/17 21:28 Dose: 8 mg - Objective Vital Signs: Vital Signs Temperature 98.0 F 12/02/17 06:00 Pulse Rate 66 12/02/17 06:00 Respiratory Rate 12/02/17 06:00 Blood Pressure 143/72 12/02/17 06:00 O2 Sat by Pulse Oximetry (%) 93 L 12/02/17 06:00 Constitutional: Yes: No Distress, Cachectic Cardiovascular: Yes: Regular Rate and Rhythm, S1, S2 Respiratory: Yes: CTA Bilaterally Gastrointestinal: Yes: Normal Bowel Sounds, Soft. No: Tenderness Edema: No Integumentary: Yes: Other (non-pruritic rash on abdomen, back) Labs: CBC, BMP 12/01/17 08:00 12/01/17 08:00 INR, PTT INR 1.22 (0.82-1.09) 11/29/17 20:10 Assessment/Plan Acute Influenza A ? Drug rash Huntingtons chorea D/C antibiotics Complete 5d course po Tamiflu OK for discharge from ID standpoint
[2017-12-02] MEDS ORDERED: PT OWN MED DRAWER 7, Y5N ONE ×2 (09:11→13:28)
[2017-12-02 09:23] LABS: BASO % 0.8 % (0-2.0); EOS % 0.5 % (0-4.5); HEMATOCRIT 38.7 % (32.4-45.2); HEMOGLOBIN 12.9 GM/dl (10.7-15.3); MCH 28.6 pg (25.7-33.7); MCHC 33.3 g/dl (32.0-36.0); MEAN CELL VOLUME 85.8 fl (80-96); MEAN PLT VOLUME 8.2 fl (7.5-11.1); MONO % 10.6 % (3.8-10.2); NEUT % 56.1 % (42.8-82.8); PLATELET COUNT 310 K/MM3 (134-434); RBC 4.51 M/mm3 (3.60-5.2); RDW 11.4 % (11.6-15.6)
[2017-12-02] MEDS: PANTOPRAZOLE 40 MG TABLET (FP) PO SCH (09:49)
[2017-12-02] MEDS: FLUoxetine HCL 20 MG CAPSULE (FP) PO SCH (09:49)
[2017-12-02] MEDS: clonazePAM 0.5 MG TABLET PO SCH (09:49)
[2017-12-02] MEDS: MULTIVITAMINS (DAILY MVI) TABLET (FP) PO SCH (09:49)
[2017-12-02] MEDS: CALCIUM 500MG/VIT-D 200 UNITS COMBO TABLET (FP) PO SCH (09:49)
[2017-12-02] MEDS: OSELTAMIVIR PHOSPHATE 75 MG CAPSULE PO SCH (09:49)
[2017-12-02] MEDS: VITAMIN B COMP W-C 1 EA TABLET PO SCH (09:50)
[2017-12-02] MEDS: TETRABENAZINE 25 MG PO SCH (09:51)
[2017-12-02 10:18] LABS: ALBUMIN 3.3 g/dl (3.5-5.0); ALK PHOS 80 U/L (32-92); ANION GAP 6 (8-16); BLOOD UREA NITROGEN 17 mg/dl (7-18); CALCIUM 8.7 mg/dl (8.4-10.2); CHLORIDE 106 mmol/L (98-107); CO2 29 mmol/L (22-28); CREATININE 0.7 mg/dl (0.6-1.3); GLUCOSE,RANDOM 104 mg/dl (74-106); POTASSIUM 4.2 mmol/L (3.5-5.1); SGOT/AST 37 U/L (10-42); SGPT/ALT 27 U/L (10-40); SODIUM 141 mmol/L (136-145); TOT PROT 6.2 g/dl (6.4-8.3)
--- NOTE | 2017-12-02 12:16 | CONS ---
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 She is a resident of [facility] with a past medical history of Tyndall's Chorea, dysarthria who presented to the emergency room with a 3-day history of fever. As per records, she had been having a high-grade fever to 102 while at the [place] [facility]. She was brought to the emergency room for evaluation. She was noted to have cough. The patient was able to give a limited history secondary to severe dysarthria. She denied any chest pain or shortness of breath. No nausea or vomiting. No known ill contacts. She did receive influenza vaccine. PAST MEDICAL HISTORY: Positive for Tyndall's Chorea. ALLERGIES: No known allergies. SOCIAL HISTORY: She resides in a [place] [facility] facility. She is a former smoker. No history of alcohol or illicit drug use. OUTPATIENT MEDICATIONS: Include Klonopin, Xenazine, atropine ophthalmic solution, Klonopin, Ramelteon. SYSTEMS REVIEW: Neurologic: Positive for Tyndall's Chorea. Cardiac: Negative chest pain or palpitations. Respiratory: As per HPI. Gastrointestinal: Negative vomiting or diarrhea. Genitourinary: Negative for urinary tract infection. LABORATORY DATA: White blood cell count 11.4, hematocrit 39.2, platelet count 317, differential 86 neutrophils, 5 lymphocytes, 7 monocytes. BUN 22, creatinine 0.7. Liver enzymes within normal limits. Urinalysis 0-2 white cells. Chest x-ray negative for acute infiltrate. Influenza screen positive for influenza A. PHYSICAL EXAMINATION: General: She is awake and responsive. She is in no acute distress. Breathing is not labored. She is noted to have choreaform movements. Appears cachectic. Vital Signs: Temperature 98, T-max 100.3, blood pressure 111/59, pulse 80 and regular, respirations 16 per minute. HEENT: Sclerae anicteric. Dry mucous membranes. Heart: Sounds S1, S2. Lungs: Scattered rhonchi. Abdomen: Soft. No tenderness elicited. No mass, rebound, or rigidity. Extremities: Negative for edema. IMPRESSION: 1. Acute influenza A. 2. Possible secondary bacterial pneumonia. 3. Tyndall's Chorea. PLAN: Await cultures. Droplet precautions. Tamoxifen 75 mg p.o. b.i.d. for 5 days. Continue Zithromax and ceftriaxone pending cultures for possible secondary to bacterial infection. We will follow. Thank you for the kind referral. HECTOR FARRIS M.D. [id number]
[2017-12-02 13:30] LABS: BILIRUBIN,TOTAL 0.3 mg/dl (0.2-1.0)
[2017-12-02] MEDS: GLYCOPYRROLATE 1 MG TABLET PO SCH (13:54)
[2017-12-02 14:13] VITALS: BP 140/70; PULSE 72
== END 2017-12-02 15:03 | disposition home health service (06) ==
LOC: FER 19:28 → FM/S 23:18 → INTOOBSV 23:18
PROVIDERS: ADMIT Internal Medicine; ATTEND Nurse Practitioner Family
PROC: 3E03329 Introduction of Other Anti-infective into Peripheral Vein, Percutaneous Approach (ICD-10-PCS; principal; 2017-11-29)
PROC: 3E013GC Introduction of Other Therapeutic Substance into Subcutaneous Tissue, Percutaneous Approach (ICD-10-PCS; 2017-11-29)
DX: J09.X2 Influenza due to identified novel influenza A virus with other respiratory manifestations (principal); G10 Huntington's disease; R47.1 Dysarthria and anarthria; Z87.891 Personal history of nicotine dependence
CPT/HCPCS: 36415; 71045-TC; 80053; 81003; 81015; 82550; 82553; 82803; 83605; 84484; 85025; 85610; 85730; 86850; 86900; 86901; 87040; 87086; 87804; 93005; 96365; 96372; 96375; 99283-25; G0378; J1644

== ENCOUNTER 2018-03-04 21:06 | Inpatient (IN) | payer OTHER, BC ==
[2018-03-04 22:25] VITALS: BMI 20.4
[2018-03-07 06:35] VITALS: BP 150/90; PULSE 90; TEMP 98.5
== END 2018-03-07 12:45 | disposition home health service (06) | DRG 193 ==
LOC: FER 21:06 → FM/S 03-05 13:54
PROVIDERS: ADMIT Internal Medicine; ATTEND Nurse Practitioner Family
DX: J10.08 Influenza due to other identified influenza virus with other specified pneumonia (principal); E43 Unspecified severe protein-calorie malnutrition; G10 Huntington's disease; J98.11 Atelectasis; R13.10 Dysphagia, unspecified; F41.9 Anxiety disorder, unspecified; F32.9 Major depressive disorder, single episode, unspecified; R47.1 Dysarthria and anarthria; F17.210 Nicotine dependence, cigarettes, uncomplicated; J44.9 Chronic obstructive pulmonary disease, unspecified
CPT/HCPCS: 36415; 71045-TC-FY; 80048; 80053; 81003; 81015; 82550; 83605; 83735; 84100; 84484; 85025; 85027; 87040; 87086; 87804; 90670; 93005; 94010; 94640; 97116-GP; 97162-GP; 99285-25; J0131; J1644; J7030; J7620

== ENCOUNTER 2018-03-07 16:28 | Inpatient (IN) | payer OTHER, BC ==
--- NOTE | 2018-03-07 16:38 | PDOC ---
History of Present Illness - General Chief Complaint: Cold Symptoms Stated Complaint: FEVER Time Seen by Provider: 03/07/18 16:31 - History of Present Illness Initial Comments: 03/07/18 16:48 68 year old female with a PMH of Steve's Disease with associated severe dysarthria presents to our ED from [facility] for a c/o AMS. Patient was discharged from our facility earlier today following an evaluation following a diagnosis of Influenza B. At presentation patient febrile (100.9 - rectal), other VS unremarkable. Call placed to [facility] for further information. Past History - Past Medical History Allergies/Adverse Reactions: Allergies Allergy/AdvReac Type Severity Reaction Status Date / Time lactose AdvReac Intermediate Verified 01/22/18 11:07 Home Medications: Ambulatory Orders clonazePAM [KlonoPIN] 0.5 mg PO BID 08/30/12 Fluoxetine HCl 60 mg PO AM 08/14/14 Tetrabenazine [Xenazine] 25 mg PO BID 08/14/14 Atropine 1% Ophth. Solution - 1 drop PO TID 11/29/17 Glycopyrrolate 1 mg PO BID 11/29/17 Lactose-Reduced Food [Ensure High Protein] 237 ml PO DAILY 11/29/17 Pediatric Multivitamin No.101 [Gummy] 1 each PO DAILY 11/29/17 Ramelteon [Rozerem] 8 mg PO HS 11/29/17 Vitamin B Complex 1 each PO DAILY 11/29/17 clonazePAM [Klonopin -] 1 mg PO HS 11/29/17 Albuterol Sulfate Inhaler - [Ventolin HFA Inhaler -] 2 inh PO Q4H PRN #1 inh 01/12 Calcium Carb/Mag Ox/Zinc Sulf [Jntupjk-Tyvmpjhld-Qaup Tablet] 1 each PO DAILY Acetaminophen [Tylenol .Regular Strength -] 650 mg PO Q4H PRN tablet 03/07/18 Albuterol 0.083% Nebulizer Tian[place] [Ventolin 0.083% Nebulizer Soln -] 1 neb NEB Q4H PRN #120 vial 03/07/18 Calcium 500Mg/Vit-D 200 Units [Os-Bethel 500+D -] 1 tab PO DAILY tab 03/07/18 Lactobacillus Acidophilus [Bacid -] 1 cap PO DAILY #30 cap 03/07/18 Nebulizer and Compressor [[place] Choice Nebulizer] 1 each MC DAILY #1 each 03/07 Oseltamivir Phosphate [Tamiflu -] 75 mg PO BID #8 capsule 03/07/18 COPD: No Psychiatric Problems: Yes (ANXIETY,INSOMNIA, DEPRESSION) - Immunization History Td Vaccination: Yes TDAP Vaccination: Yes Immunization Up to Date: Yes - Suicide/Smoking/Psychosocial Hx Smoking Status: Yes Smoking History: Former smoker Years of Tobacco Use: 0 Have you smoked in the past 12 months: No Number of Cigarettes Smoked Daily: 20 If you are a former smoker, when did you quit?: 2013 'Breaking Loose' booklet given: 05/07/14 Hx Alcohol Use: No Drug/Substance Use Hx: No Substance Use Type: None Hx Substance Use Treatment: No Review of Systems - Review of Systems Able to Perform ROS?: No (dysarthria) *Physical Exam - Physical Exam General Appearance: Yes: Appropriately Dressed, Other (dysrathric (baselien)) HEENT: positive: EOMI, LINDA Respiratory/Chest: positive: Lungs Clear, Normal Breath Sounds Cardiovascular: positive: S1, S2 Vascular Pulses: Dorsalis-Pedis (R): 2+, Doralis-Pedis (L): 2+ Gastrointestinal/Abdominal: positive: Normal Bowel Sounds, Soft Extremity: positive: Normal Capillary Refill, Normal Inspection. negative: Coldness, Cyanosis Integumentary: positive: Normal Color, Dry, Warm Neurologic: positive: Fully Oriented, Alert ED Treatment Course - LABORATORY CBC & Chemistry Diagram: 03/08/18 07:15 03/08/18 07:15 Medical Decision Making - Medical Decision Making 03/07/18 16:41 68 year old female with a PMH of Steve's Disease w/associated severe dysarthria presents to ED from [facility] with c/o fever (reported Tmax 101 @ [facility]) as well as "obtunded" Rectal Temp @ our facility 100.9, oral temp 98.5; other VS unremarkable; patient alert, responsive @ our facility 03/07/18 17:25 Case d/w Dr Pollard, patient's PMD - states if patient hemodynamically stable, prefers discharge to [place]. 03/07/18 17:42 Family @ bedside. Note patient @ baseline mental status. Case d/w HCP, [place] -- patient not accepted for return admission as temperatute > 101. 03/07/18 18:39 Patient to be admitted for further evaluation. Labs, XR, ECG pending. *DC/Admit/Observation/Transfer Diagnosis at time of Disposition: Influenza - Discharge Dispostion Condition at time of disposition: Good Admit: No - Referrals - Patient Instructions - Post Discharge Activity
[2018-03-07 16:46] VITALS: BMI 22.3
--- NOTE | 2018-03-07 17:21 | PDOC ---
Attending Attestation - Resident Resident Name: Mayra Ortiz - ED Attending Attestation I have performed the following: I have examined & evaluated the patient, The case was reviewed & discussed with the resident, I agree w/resident's findings & plan, Exceptions are as noted - HPI HPI: 03/07/18 17:16 Ms Mcintyre is a 68 yo F with a history of Perquimans's chorea s/p recent admission and discharge today from the inpatient unit due to fever. PT s/p CXR which was negative, UA which was negative, Urine and blood cultures negative. Pt ultimately found to have Influenza B Pt has been on Tamiflu Apparently stable on the inpatient unit Pt was sent to the ER when she was reportedly found diaphoretic, and Altered Upon arrival to the ER, pt rectal temp 100.9 She denies cough, denies shortness of breath. Denies chest pain. Denies abdominal pain, nausea, vomiting, diarrhea. Denies dysuria. During admission swallow study revealed aspiration, PEG was recommended Family refused 03/07/18 17:19 - Physicial Exam PE: 03/07/18 17:19 On examination: Pt is awake and alert Responsive to my questioning Rectal temp 100.9 RRR Coarse breath sounds No abd tenderness 03/07/18 17:20 - Medical Decision Making 03/07/18 17:21 68 yo F recently admitted for fever, found to have influenza on Tamiflu Pt discharged to home today Upon arrival to the [facility] facility, pt was reportedly altered PT is currently not altered Will contact PMD Dr Pollard Pt admitted to hospitalist service Labs and cxr pending Clinical impression: fevers, initial presentation Discharge Disposition - Diagnosis Influenza - Discharge Dispostion Condition at time of disposition: Good Last Admission D/C Date: 03/07/18 Admit: Yes - Referrals - Patient Instructions - Post Discharge Activity
[2018-03-07] MEDS ORDERED: ACETAMINOPHEN 650 MG/20.3 ML ORAL SOLUTION (CUPS) PO ONE (18:05)
[2018-03-07] MEDS ORDERED: ACETAMINOPHEN 650 MG/20.3 ML ORAL SOLUTION (CUPS) ONE (18:12)
[2018-03-07] MEDS ORDERED: ACETAMINOPHEN 325 MG TABLET (FP) ONE (18:16)
[2018-03-07] MEDS ORDERED: SODIUM CHLORIDE 0.9% 500 ML INFUS.BAG IV ONE (18:27)
[2018-03-07] MEDS ORDERED: ACETAMINOPHEN 1000 MG/100 ML VIAL (NON FORMULARY) IVPB ONE (19:01)
[2018-03-07] MEDS ORDERED: ACETAMINOPHEN INJECTION 100 ML IVPB ONE (19:03)
[2018-03-07 19:34] LABS: BASO % 0.5 % (0-2.0); HEMOGLOBIN 13.4 GM/dl (10.7-15.3); LYMPH % 11.6 % (8-40); MCHC 33.6 g/dl (32.0-36.0); MEAN CELL VOLUME 83.2 fl (80-96); MEAN PLT VOLUME 7.3 fl (7.5-11.1); MONO % 4.3 % (3.8-10.2); NEUT % 83.6 % (42.8-82.8); PLATELET COUNT 373 K/MM3 (134-434); RBC 4.81 M/mm3 (3.60-5.2); RDW 12.2 % (11.6-15.6); WHITE BLOOD COUNT 9.9 K/mm3 (4.0-10.8)
[2018-03-07 19:40] LABS: ALBUMIN 3.8 g/dl (3.5-5.0); ALK PHOS 81 U/L (32-92); ANION GAP 8 (8-16); BILIRUBIN,TOTAL 0.6 mg/dl (0.2-1.0); BLOOD UREA NITROGEN 17 mg/dl (7-18); CALCIUM 9.5 mg/dl (8.4-10.2); CHLORIDE 102 mmol/L (98-107); CO2 26 mmol/L (22-28); GLUCOSE,RANDOM 112 mg/dl (74-106); POTASSIUM 3.8 mmol/L (3.5-5.1); SGOT/AST 20 U/L (10-42); SGPT/ALT 13 U/L (10-40); SODIUM 136 mmol/L (136-145); TOT PROT 7.4 g/dl (6.4-8.3)
[2018-03-07 19:47] LABS: CREATININE 0.8 mg/dl (0.6-1.3)
--- NOTE | 2018-03-07 20:46 | HP ---
CHIEF COMPLAINT: Fever PCP: Dr. Pollard HISTORY OF PRESENT ILLNESS: This is a 68 y/o woman with a PMH of Anthony's Chorea, Anxiety, Depression. Who presents from the [facility] sent in for fever and altered mental status. Patient was recently admitted 03/05-03/07 for Influenza. Per nursing staff, patient is not at baseline- more confused, lethargic. ER course was notable for: (1) T max 100.9 (2) Neutrophils 83.6 (3) Pulse Ox 84%, improved 96% on 2L Recent Travel: None PAST MEDICAL HISTORY: See HPI PAST SURGICAL HISTORY: None Social History: Smoking: Former Alcohol: None Drugs: None Resides at the [facility] Family History: brother Stone's Chorea Father Stone's Chorea Allergies lactose Adverse Reaction (Intermediate, Verified 01/22/18 11:07) abd. cramps and diarehha HOME MEDICATIONS: Home Medications Medication Instructions Recorded clonazePAM [KlonoPIN] 0.5 mg PO BID 08/30/12 Fluoxetine HCl 60 mg PO AM 08/14/14 Tetrabenazine [Xenazine] 25 mg PO BID 08/14/14 Atropine 1% Ophth. Solution - 1 drop PO TID 11/29/17 Glycopyrrolate 1 mg PO BID 11/29/17 Lactose-Reduced Food [Ensure High 237 ml PO DAILY 11/29/17 Protein] Pediatric Multivitamin No.101 1 each PO DAILY 11/29/17 [Gummy] Ramelteon [Rozerem] 8 mg PO HS 11/29/17 Vitamin B Complex 1 each PO DAILY 11/29/17 clonazePAM [Klonopin -] 1 mg PO HS 11/29/17 Albuterol Sulfate Inhaler - 2 inh PO Q4H PRN #1 inh 01/24/18 [Ventolin HFA Inhaler -] Calcium Carb/Mag Ox/Zinc Sulf 1 each PO DAILY 03/05/18 [Kmfbtyi-Jerrmkoiy-Dcdj Tablet] Acetaminophen [Tylenol .Regular 650 mg PO Q4H PRN tablet 03/07/18 Strength -] Albuterol 0.083% Nebulizer Tianna 1 neb NEB Q4H PRN #120 vial 03/07/18 [Ventolin 0.083% Nebulizer Soln -] Calcium 500Mg/Vit-D 200 Units 1 tab PO DAILY tab 03/07/18 [Os-Bethel 500+D -] Lactobacillus Acidophilus [Bacid -] 1 cap PO DAILY #30 cap 03/07/18 Nebulizer and Compressor [[place] 1 each MC DAILY #1 each 03/07/18 Choice Nebulizer] Oseltamivir Phosphate [Tamiflu -] 75 mg PO BID #8 capsule 03/07/18 REVIEW OF SYSTEMS CONSTITUTIONAL: Fever Absent: chills, diaphoresis, generalized weakness, malaise, loss of appetite, weight change HEENT: Absent: rhinorrhea, nasal congestion, throat pain, throat swelling, difficulty swallowing, mouth swelling, ear pain, eye pain, visual changes CARDIOVASCULAR: Absent: chest pain, syncope, palpitations, irregular heart rate, lightheadedness , peripheral edema RESPIRATORY: Absent: cough, shortness of breath, dyspnea with exertion, orthopnea, wheezing, stridor, hemoptysis GASTROINTESTINAL: Absent: abdominal pain, abdominal distension, nausea, vomiting, diarrhea, constipation, melena, hematochezia GENITOURINARY: Absent: dysuria, frequency, urgency, hesitancy, hematuria, flank pain, genital pain MUSCULOSKELETAL: Absent: myalgia, arthralgia, joint swelling, back pain, neck pain SKIN: Absent: rash, itching, pallor HEMATOLOGIC/IMMUNOLOGIC: Absent: easy bleeding, easy bruising, lymphadenopathy, frequent infections ENDOCRINE: Absent: unexplained weight gain, unexplained weight loss, heat intolerance, cold intolerance NEUROLOGIC: mental status changes Absent: headache, focal weakness or paresthesias, dizziness, unsteady gait, seizure, bladder or bowel incontinence PSYCHIATRIC: Absent: anxiety, depression, suicidal or homicidal ideation, hallucinations. PHYSICAL EXAMINATION Vital Signs - 24 hr 03/07/18 16:30 Temperature 100.9 F H Pulse Rate 83 Respiratory 20 Rate Blood Pressure 142/83 O2 Sat by Pulse 97 Oximetry (%) GENERAL: Lethargic, arousable to verbal stimulus only, in no acute distress. HEAD: Normal with no signs of trauma. EYES: Pupils equal, round and reactive to light, sclera anicteric, conjunctiva clear. No lid lag. EARS, NOSE, THROAT: Ears normal, nares patent, oropharynx clear without exudates. Dry mucous membranes. NECK: Normal range of motion, supple without lymphadenopathy, JVD, or masses. LUNGS: Breath sounds coarse rhonchi. No wheezes, and no crackles. No accessory muscle use. HEART: Regular rate and rhythm, normal S1 and S2 without murmur, rub or gallop. ABDOMEN: Soft, nontender, not distended, normoactive bowel sounds, no guarding, no rebound, no masses. No hepatomegaly or splenomegaly. MUSCULOSKELETAL: Normal range of motion at all joints. No bony deformities or tenderness. No CVA tenderness. UPPER EXTREMITIES: 2+ pulses, warm, well-perfused. No cyanosis. No clubbing. No peripheral edema. LOWER EXTREMITIES: 2+ pulses, warm, well-perfused. No calf tenderness. No peripheral edema. NEUROLOGICAL: Cranial nerves II-XII intact. Dysarthic speech. Gait not observed. PSYCHIATRIC: Lethargic, unable to assess. SKIN: Warm, dry, normal turgor, no rashes or lesions noted, normal capillary refill. Laboratory Results - last 24 hr 03/07/18 03/07/18 19:14 19:14 WBC 9.9 D RBC 4.81 Hgb 13.4 Hct 40.0 MCV 83.2 MCH 28.0 MCHC 33.6 RDW 12.2 Plt Count 373 MPV 7.3 L Neutrophils % 83.6 H Lymphocytes % 11.6 Monocytes % 4.3 Eosinophils % 0.0 Basophils % 0.5 Sodium 136 Potassium 3.8 Chloride 102 Carbon Dioxide 26 Anion Gap 8 BUN 17 D Creatinine 0.8 Creat Clearance w eGFR > 60 Random Glucose 112 H D Calcium 9.5 Total Bilirubin 0.6 AST 20 ALT 13 Alkaline Phosphatase 81 Total Protein 7.4 Albumin 3.8 ASSESSMENT/PLAN: 68 y/o woman with a PMHx of: Stone's Chorea, Anxiety, Depression. Placed in Observation for Hypoxia secondary to ?Aspiration, Fever, influenza. Plan: 1. Hypoxia- Likely secondary to ?Aspirate PNA, will do Chest CT in am, Continue O2, HOB elevated, aspiration precautions 2. Fever- Likely secondary to influenza, will continue Tamiflu, Blood cultures- pending, will order UA, Urine Culture, repeat CBC, BMP in am, monitor vitals, Tylenol prn, supportive care 3. Influenza- continue Tamiflu, Isolation Precautions, Tylenol prn 4. Anthony's Chorea- Continue to treat with interventions accordingly, continue home meds 5. Depression- Continue home meds 6. Fall Precautions 7. FEN- Replete lytes prn, Dysphagia Puree Diet with honey thick liquids 8. DVT ppx- SCDs, Heparin SQ Code Status: Full Code, HCP Dispo: Requires Inpatient Care Problem List - Problem (1) Fever Code(s): R50.9 - FEVER, UNSPECIFIED (2) Influenza Code(s): J11.1 - FLU DUE TO UNIDENTIFIED INFLUENZA VIRUS W OTH RESP MANIFEST (3) Stone chorea Code(s): G10 - ANTHONY'S DISEASE (4) DVT prophylaxis Code(s): VYM0410 - Visit type - Emergency Visit Emergency Visit: Yes ED Registration Date: 03/07/18 Care time: The patient presented to the Emergency Department on the above date and was hospitalized for further evaluation of their emergent condition. - New Patient This patient is new to me today: Yes Date on this admission: 03/07/18 - Critical Care Critical Care patient: No Hospitalist Screening - Colonoscopy Questionnaire Colonoscopy Questionnaire: Colonoscopy Questionnaire - Patient: 50 - 75 years old and never had a screening colonoscopy: No History of colon or rectal polyps, or CA: No History of IBD, Crohn's disease or UC: No History of abdominal radiation therapy as a child: No - Relative: 1 with colon or rectal CA, or polyps at age 60 or younger: No Colon or rectal CA diagnosed at age 45 or younger: No Multiple relatives with colon or rectal CA: No - Outcome: Screening Result: Negative Screen
[2018-03-07] MEDS ORDERED: ALBUTEROL SO4 0.083% IH SOL 2.5 MG/3 ML VIAL.NEB. NEB PRN (21:02)
[2018-03-07] MEDS ORDERED: clonazePAM 0.5 MG TABLET PO SCH ×2 (22:00)
[2018-03-07] MEDS: RAMELTEON 8 MG TABLET PO SCH (22:14)
[2018-03-07] MEDS: OSELTAMIVIR PHOSPHATE 75 MG CAPSULE PO SCH (22:14)
[2018-03-07] MEDS: GLYCOPYRROLATE 1 MG TABLET PO SCH (22:15)
[2018-03-07 22:55] LABS: URINE APPEARANCE Clear; URINE BILIRUBIN 1+ (NEGATIVE); URINE COLOR YELLOW; URINE GLUCOSE (UA) Negative (NEGATIVE); URINE KETONE Trace (NEGATIVE); URINE LEUK ESTERASE Negative (NEGATIVE); URINE NITRITE Negative (NEGATIVE); URINE PROTEIN 2+ (NEGATIVE)
[2018-03-07 23:04] LABS: EPI CELLS FEW /HPF; URINE BACTERIA FEW /hpf (NEGATIVE); URINE WBC 0-2 (0-5)
[2018-03-08 08:02] LABS: BASO % 0.2 % (0-2.0); EOS % 0.2 % (0-4.5); HEMATOCRIT 36.3 % (32.4-45.2); HEMOGLOBIN 12.6 GM/dl (10.7-15.3); LYMPH % 11.5 % (8-40); MCH 29.2 pg (25.7-33.7); MCHC 34.8 g/dl (32.0-36.0); MEAN PLT VOLUME 7.1 fl (7.5-11.1); NEUT % 82.1 % (42.8-82.8); PLATELET COUNT 336 K/MM3 (134-434); RBC 4.33 M/mm3 (3.60-5.2); WHITE BLOOD COUNT 7.8 K/mm3 (4.0-10.8)
[2018-03-08 08:22] LABS: ANION GAP 6 (8-16); BLOOD UREA NITROGEN 21 mg/dl (7-18); CALCIUM 8.9 mg/dl (8.4-10.2); CHLORIDE 106 mmol/L (98-107); CO2 27 mmol/L (22-28); CREATININE 0.7 mg/dl (0.6-1.3); GLUCOSE,RANDOM 102 mg/dl (74-106); MAGNESIUM 2.1 mg/dL (1.8-2.4); PHOSPHOROUS 3.4 mg/dl (2.5-4.6); SODIUM 139 mmol/L (136-145)
--- NOTE | 2018-03-08 09:13 | PN ---
Physical Exam: SUBJECTIVE: Patient seen and examined, persistent moist cough,denies cp, sob, palpitations, abdominal pain, N/V/D or fever. OBJECTIVE: Vital Signs Period Temp Pulse Resp BP Sys/Wills Pulse Ox Last 24 Hr 98.4 F-100.9 F 65-83 18-20 120-142/68-83 96-97 GENERAL: The patient is awake, alert, responsive,no acute distress, difficult to understand, not in any kind of acute distress HEAD: Normal with no signs of trauma. EYES: PERRL, extraocular movements intact, sclera anicteric, conjunctiva clear. No ptosis. ENT: Ears normal, nares patent, oropharynx clear without exudates, moist mucous membranes. NECK: Trachea midline, full range of motion, supple. LUNGS: Breath sounds equal, ronchi, no wheezes, no crackles, no accessory muscle use. HEART: Regular rate and rhythm, S1, S2 without murmur, rub or gallop. ABDOMEN: Soft, non-tender, nondistended, normoactive bowel sounds, no guarding, no rebound, no hepatosplenomegaly, no masses. EXTREMITIES: 2+ pulses, warm, well-perfused, no edema. NEUROLOGICAL: Cranial nerves II through XII grossly intact, gait not observed, dysarthria PSYCH: Normal mood, normal affect. SKIN: Warm, dry, normal turgor, no rashes or lesions noted Laboratory Results - last 24 hr 03/07/18 03/07/18 03/07/18 19:14 19:14 22:35 WBC 9.9 D RBC 4.81 Hgb 13.4 Hct 40.0 MCV 83.2 MCH 28.0 MCHC 33.6 RDW 12.2 Plt Count 373 MPV 7.3 L Neutrophils % 83.6 H Lymphocytes % 11.6 Monocytes % 4.3 Eosinophils % 0.0 Basophils % 0.5 Sodium 136 Potassium 3.8 Chloride 102 Carbon Dioxide 26 Anion Gap 8 BUN 17 D Creatinine 0.8 Creat Clearance w eGFR > 60 Random Glucose 112 H D Calcium 9.5 Total Bilirubin 0.6 AST 20 ALT 13 Alkaline Phosphatase 81 Total Protein 7.4 Albumin 3.8 Urine Color Yellow Urine Appearance Clear Urine pH 7.0 Ur Specific [place] 1.020 Urine Protein 2+ H Urine Glucose (UA) Negative Urine Ketones Trace Urine Blood Trace-intact H Urine Nitrite Negative Urine Bilirubin 1+ H Urine Urobilinogen 1.0 Ur Leukocyte Esterase Negative Urine RBC 10-20 Urine WBC 0-2 Ur Epithelial Cells Few Urine Bacteria Few 03/08/18 07:15 WBC 7.8 RBC 4.33 Hgb 12.6 Hct 36.3 MCV 84.0 MCH 29.2 MCHC 34.8 RDW 12.0 Plt Count 336 MPV 7.1 L Neutrophils % 82.1 Lymphocytes % 11.5 Monocytes % 6.0 Eosinophils % 0.2 Basophils % 0.2 Sodium Potassium Chloride Carbon Dioxide Anion Gap BUN Creatinine Creat Clearance w eGFR Random Glucose Calcium Total Bilirubin AST ALT Alkaline Phosphatase Total Protein Albumin Urine Color Urine Appearance Urine pH Ur Specific [place] Urine Protein Urine Glucose (UA) Urine Ketones Urine Blood Urine Nitrite Urine Bilirubin Urine Urobilinogen Ur Leukocyte Esterase Urine RBC Urine WBC Ur Epithelial Cells Urine Bacteria Active Medications Generic Name Dose Route Start Last Admin Trade Name Freq PRN Reason Stop Dose Admin Acetaminophen 650 mg 03/07/18 20:42 Tylenol - PO Q6H PRN PAIN OR FEVER Albuterol Sulfate 1 amp 03/07/18 21:02 Ventolin 0.083% Nebulizer Soln - NEB Q4H PRN SHORT OF BREATH/WHEEZING Calcium Carbonate/Cholecalciferol 1 tab 03/08/18 10:00 Os-Bethel 500+D - PO DAILY [facility] Clonazepam 0.5 mg 03/07/18 22:11 Klonopin - PO BID [facility] Fluoxetine HCl 60 mg 03/08/18 10:00 Prozac - PO DAILY [facility] Glycopyrrolate 1 mg 03/07/18 22:00 03/07/18 22:15 Robinul - PO 1 mg BID [facility] Administration Lactobacillus Acidophilus 1 cap 03/08/18 10:00 Bacid - PO DAILY [facility] Multivitamins 1 each 03/08/18 10:00 Total B With C - PO DAILY [facility] Non-Formulary Medication 1 each 03/08/18 10:00 Calcium Carb/Mag Ox/Zinc Sulf [Qzcpslp-Pkauweztm-Vdzw Tablet] PO DAILY [facility] Non-Formulary Medication 1 each 03/08/18 10:00 Pediatric Multivitamin No.101 [Gummy] PO DAILY [facility] Non-Formulary Medication 25 mg 03/07/18 22:00 Tetrabenazine [Xenazine] PO BID [facility] Oseltamivir Phosphate 75 mg 03/07/18 22:00 03/07/18 22:14 Tamiflu - PO 03/09/18 21:59 75 mg BID [facility] Administration Ramelteon 8 mg 03/07/18 22:00 03/07/18 22:14 Rozerem PO 8 mg HS [facility] Administration CxR: No acute pathology CT chest:pending BLood culture/ Urine culture: pending ASSESSMENT/PLAN: This is a 68 y/o woman with a PMHx of: [place]'s Chorea, Anxiety, Depression. Placed in Observation for Hypoxia secondary to ?Aspiration, Fever, influenza. Patient was recently admitted 03/05-03/07 for Influenza. Per nursing staff, patient is not at baseline- more confused, lethargic and sent back to the hospital. * Hypoxia- Likely secondary to ?Aspirate PNA vs Influenza - CxR- NAD -ordered Chest CT -will continue O2, HOB elevated, aspiration precautions - afebrile with no leukocytosis - O2 sat stable on O2 2L N/C *Fever- Likely secondary to influenza, ? pneumonia- afebrile now -will continue Tamiflu - nair cultures pending -UA no pyuria -Tylenol prn, supportive care * Recent Influenza -will continue Tamiflu - Isolation Precautions - Tylenol prn * Dysphasia-high risk for aspiration - s/p FLAME GOUGER on 03/05/18-rec Dysphagia Puree Diet with honey thick liquids -if patient becomes congested again or develops recurrent pneumonia, consider gastrostomy tube feeding for hydration with PO pure diet only. 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 - New Patient This patient is new to me today: Yes Date on this admission: 03/08/18 - Critical Care Critical Care patient: No
[2018-03-08] MEDS ORDERED: [UNRECOGNIZED DRUG - OTHER] PO SCH (10:00)
[2018-03-08] MEDS ORDERED: CALCIUM CARB PO SCH (10:00)
[2018-03-08] MEDS ORDERED: [UNRECOGNIZED DRUG - REMARK] PO SCH (10:00)
[2018-03-08] MEDS ORDERED: MAG OX PO SCH (10:00)
[2018-03-08] MEDS ORDERED: ZINC SULF PO SCH (10:00)
[2018-03-08] MEDS: FLUoxetine HCL 20 MG CAPSULE (FP) PO SCH (10:04)
[2018-03-08] MEDS: OSELTAMIVIR PHOSPHATE 75 MG CAPSULE PO SCH ×2 (10:04→21:50)
[2018-03-08] MEDS: CALCIUM 500MG/VIT-D 200 UNITS COMBO TABLET (FP) PO SCH (10:04)
[2018-03-08] MEDS: LACTOBACILLUS ACIDOPHILUS 1 TABLET PO SCH (10:05)
[2018-03-08] MEDS: clonazePAM 0.5 MG TABLET PO SCH ×2 (10:05→21:50)
[2018-03-08] MEDS: VITAMIN B COMPLEX W/C COMBO TABLET (FP) PO SCH (10:06)
[2018-03-08] MEDS: GLYCOPYRROLATE 1 MG TABLET PO SCH ×2 (10:06→21:52)
[2018-03-08] MEDS: HEPARIN NA (PORCINE) 5,000 UNITS/ML 1ML VIAL SQ SCH ×2 (10:11→21:53)
[2018-03-08] MEDS ORDERED: SODIUM CHLORIDE 1,000 ML IV SCH (11:15)
[2018-03-08] MEDS ORDERED: DEXTROSE 5%-NORMAL SALINE 1,000 ML IV SCH (12:45)
[2018-03-08] MEDS ORDERED: HEPARIN NA (PORCINE) 5,000 UNITS/ML 1ML VIAL SQ SCH (14:00)
[2018-03-08] MEDS: RAMELTEON 8 MG TABLET PO SCH (21:51)
[2018-03-09] MEDS: ACETAMINOPHEN 325 MG TABLET (FP) PO PRN (05:03)
[2018-03-09] MEDS ORDERED: PT OWN MED DRAWER 7, Y5N ONE ×4 (09:10→21:05)
[2018-03-09] MEDS ORDERED: REFRIGERATED ANITBIOTICS ONE (09:11)
[2018-03-09] MEDS: LACTOBACILLUS ACIDOPHILUS 1 TABLET PO SCH (09:27)
[2018-03-09] MEDS: clonazePAM 0.5 MG TABLET PO SCH ×2 (09:27→21:11)
[2018-03-09] MEDS: CALCIUM 500MG/VIT-D 200 UNITS COMBO TABLET (FP) PO SCH (09:28)
[2018-03-09] MEDS: OSELTAMIVIR PHOSPHATE 75 MG CAPSULE PO SCH (09:29)
[2018-03-09] MEDS: FLUoxetine HCL 20 MG CAPSULE (FP) PO SCH (09:30)
[2018-03-09] MEDS: VITAMIN B COMPLEX W/C COMBO TABLET (FP) PO SCH (09:32)
[2018-03-09] MEDS: GLYCOPYRROLATE 1 MG TABLET PO SCH ×2 (09:32→21:12)
[2018-03-09] MEDS: HEPARIN NA (PORCINE) 5,000 UNITS/ML 1ML VIAL SQ SCH ×2 (09:32→21:11)
[2018-03-09] MEDS ORDERED: DEXTROSE 5%-NORMAL SALINE 1,000 ML IV SCH (11:12)
[2018-03-09] MEDS ORDERED: CEFTRIAXONE 1 G/50 ML PREMIX 50 ML IVPB ONE ×2 (11:45)
[2018-03-09] MEDS ORDERED: AZITHROMYCIN IVPB ONE (11:45)
--- NOTE | 2018-03-09 15:14 | PN ---
Progress Note (short form) - Note Progress Note: Subjective: The patient was seen and examined at the bedside, she has complaints of headache Current Medications Generic Name Dose Route Start Last Admin Trade Name Freq PRN Reason Stop Dose Admin Acetaminophen 650 mg 03/07/18 20:42 03/09/18 05:03 Tylenol - PO 650 mg Q6H PRN Administration PAIN OR FEVER Albuterol Sulfate 1 amp 03/07/18 21:02 Ventolin 0.083% Nebulizer Soln - NEB Q4H PRN SHORT OF BREATH/WHEEZING Calcium Carbonate/Cholecalciferol 1 tab 03/08/18 10:00 03/09/18 09:28 Os-Bethel 500+D - PO 1 tab DAILY [facility] Administration Clonazepam 0.5 mg 03/07/18 22:11 03/09/18 09:27 Klonopin - PO 0.5 mg BID [facility] Administration Fluoxetine HCl 60 mg 03/08/18 10:00 03/09/18 09:30 Prozac - PO 60 mg DAILY [facility] Administration Glycopyrrolate 1 mg 03/07/18 22:00 03/09/18 09:32 Robinul - PO 1 mg BID [facility] Administration Heparin Sodium (Porcine) 5,000 unit 03/08/18 10:00 03/09/18 09:32 Heparin - SQ 5,000 unit BID [facility] Administration Azithromycin 250 mg/ Dextrose 250 mls @ 250 mls/hr 03/10/18 10:00 IVPB DAILY [facility] Dextrose/Sodium Chloride 1,000 mls @ 100 mls/hr 03/09/18 11:12 03/09/18 12:28 D5-Ns - IV 100 mls/hr ASDIR [facility] Administration Lactobacillus Acidophilus 1 cap 03/08/18 10:00 03/09/18 09:27 Bacid - PO 1 cap DAILY [facility] Administration Multivitamins 1 each 03/08/18 10:00 03/09/18 09:32 Total B With C - PO 1 each DAILY [facility] Administration Non-Formulary Medication 1 each 03/08/18 10:00 Calcium Carb/Mag Ox/Zinc Sulf [Oelgrdp-Hucipopil-Kerz Tablet] PO DAILY [facility] Non-Formulary Medication 1 each 03/08/18 10:00 Pediatric Multivitamin No.101 [Gummy] PO DAILY [facility] Non-Formulary Medication 25 mg 03/09/18 22:00 Tetrabenazine [Xenazine] PO BID [facility] Oseltamivir Phosphate 75 mg 03/07/18 22:00 03/09/18 09:29 Tamiflu - PO 03/09/18 21:59 75 mg BID [facility] Administration Ramelteon 8 mg 03/07/18 22:00 03/08/18 21:51 Rozerem PO 8 mg HS [facility] Administration Objective: Vital Signs Period Temp Pulse Resp BP Sys/Wills Pulse Ox Last 24 Hr 97.3 F-99.5 F 56-58 16-19 109-145/55-78 95-97 Physical Exam: General: CBCD WBC 7.8 K/mm3 (4.0-10.8) 03/08/18 07:15 RBC 4.33 M/mm3 (3.60-5.2) 03/08/18 07:15 Hgb 12.6 GM/dl (10.7-15.3) 03/08/18 07:15 Hct 36.3 % (32.4-45.2) 03/08/18 07:15 MCV 84.0 fl (80-96) 03/08/18 07:15 MCHC 34.8 g/dl (32.0-36.0) 03/08/18 07:15 RDW 12.0 % (11.6-15.6) 03/08/18 07:15 Plt Count 336 K/MM3 (134-434) 03/08/18 07:15 MPV 7.1 fl (7.5-11.1) L 03/08/18 07:15 CMP Sodium 139 mmol/L (136-145) 03/08/18 07:15 Potassium 4.0 mmol/L (3.5-5.1) 03/08/18 07:15 Chloride 106 mmol/L (98-107) 03/08/18 07:15 Carbon Dioxide 27 mmol/L (22-28) 03/08/18 07:15 Anion Gap 6 (8-16) L 03/08/18 07:15 BUN 21 mg/dl (7-18) H D 03/08/18 07:15 Creatinine 0.7 mg/dl (0.6-1.3) 03/08/18 07:15 Creat Clearance w eGFR > 60 (>60) 03/07/18 19:14 Random Glucose 102 mg/dl (74-106) 03/08/18 07:15 Calcium 8.9 mg/dl (8.4-10.2) 03/08/18 07:15 Total Bilirubin 0.6 mg/dl (0.2-1.0) 03/07/18 19:14 AST 20 U/L (10-42) 03/07/18 19:14 ALT 13 U/L (10-40) 03/07/18 19:14 Alkaline Phosphatase 81 U/L (32-92) 03/07/18 19:14 Total Protein 7.4 g/dl (6.4-8.3) 03/07/18 19:14 Albumin 3.8 g/dl (3.5-5.0) 03/07/18 19:14 Microbiology 03/07/18 22:35 Urine - Urine - Catheterized Urine Culture - Final NO GROWTH OBTAINED 03/07/18 23:00 Blood - Peripheral Venous Blood Culture - Preliminary NO GROWTH OBTAINED AFTER 24 HOURS, INCUBATION TO CONTINUE FOR 4 DAYS. 03/07/18 23:00 Blood - Peripheral Venous Blood Culture - Preliminary NO GROWTH OBTAINED AFTER 24 HOURS, INCUBATION TO CONTINUE FOR 4 DAYS. Assessment: This is a 68 year old female with PMHx of [place]'s Chorea, Anxiety, Depression who presented to the ED with fever after being discharged to nursing facility from [facility] on 03/07 with the diagnosis of influenza. Plan: 1) Fever - Likely 2/2 influenza B, however chest CT with consolidation/atelectasis at both lung bases - Will start Ceftriaxone and Azithromycin - Continue Tamiflu: continue isolation - O2 via NC pnr 2) Dysphagia - Recent evaluation from speech and swallow during last admission - Now with coughing while eating applesauce with pills - Keep NPO - IV fluids increased - F/u repeat swallow evaluation 3) Steve Chorea - Continue home medications 4) Anxiety/depression - Continue home medications 5) F/E/N: - Monitor electrolytes - NPO until swallow evaluation: discussed previous swallow evaluation and PEG tube recommendation at length with daughter. They are still thinking about it 6) Prophylaxis: - Heparin 5,000u sq bid 7) Dispo: - Likely tomorrow after swallow evaluation CODE STATUS: FULL CODE Visit type - Emergency Visit Emergency Visit: Yes ED Registration Date: 03/07/18 Care time: The patient presented to the Emergency Department on the above date and was hospitalized for further evaluation of their emergent condition. - New Patient This patient is new to me today: Yes Date on this admission: 03/10/18 - Critical Care Critical Care patient: No
[2018-03-09] MEDS: RAMELTEON 8 MG TABLET PO SCH (21:12)
[2018-03-09] MEDS: TETRABENAZINE 25 MG PO SCH (21:13)
[2018-03-10] MEDS ORDERED: PT OWN MED DRAWER 7, Y5N ONE ×3 (07:11→21:19)
--- NOTE | 2018-03-10 09:04 | PN ---
Physical Exam: SUBJECTIVE: Patient seen and examined, reports ongoing cough, wants to go home OBJECTIVE: patient is a 68 y/o female with a past medical history of Reeves 's chorea and depression Vital Signs Period Temp Pulse Resp BP Sys/Wills Pulse Ox Last 24 Hr 98.9 F-99.5 F 58-70 18-19 129-145/78-82 97-99 GENERAL: The patient is awake, alert, and fully oriented, in no acute distress. HEAD: Normal with no signs of trauma. EYES: PERRL, extraocular movements intact, sclera anicteric, conjunctiva clear. No ptosis. ENT: Ears normal, nares patent, oropharynx clear without exudates, moist mucous membranes. NECK: Trachea midline, full range of motion, supple. LUNGS: Breath sounds equal, course rhonchi to apexes, diminished to base, no wheezes, no crackles, no accessory muscle use. HEART: Regular rate and rhythm, S1, S2 without murmur, rub or gallop. ABDOMEN: Soft, nontender, nondistended, normoactive bowel sounds, no guarding, no rebound, no hepatosplenomegaly, no masses. EXTREMITIES: 2+ pulses, warm, well-perfused, no edema. NEUROLOGICAL: Cranial nerves II through XII grossly intact. dysarthia, gait not observed. PSYCH: Normal mood, normal affect. SKIN: Warm, dry, normal turgor, no rashes or lesions noted Active Medications Generic Name Dose Route Start Last Admin Trade Name Freq PRN Reason Stop Dose Admin Acetaminophen 650 mg 03/07/18 20:42 03/09/18 05:03 Tylenol - PO 650 mg Q6H PRN Administration PAIN OR FEVER Albuterol Sulfate 1 amp 03/07/18 21:02 Ventolin 0.083% Nebulizer Soln - NEB Q4H PRN SHORT OF BREATH/WHEEZING Calcium Carbonate/Cholecalciferol 1 tab 03/08/18 10:00 03/09/18 09:28 Os-Bethel 500+D - PO 1 tab DAILY [facility] Administration Clonazepam 0.5 mg 03/07/18 22:11 03/09/18 21:11 Klonopin - PO 0.5 mg BID [facility] Administration Fluoxetine HCl 60 mg 03/08/18 10:00 03/09/18 09:30 Prozac - PO 60 mg DAILY [facility] Administration Glycopyrrolate 1 mg 03/07/18 22:00 03/09/18 21:12 Robinul - PO 1 mg BID [facility] Administration Heparin Sodium (Porcine) 5,000 unit 03/08/18 10:00 03/09/18 21:11 Heparin - SQ 5,000 unit BID [facility] Administration Azithromycin 250 mg/ Dextrose 250 mls @ 250 mls/hr 03/10/18 10:00 IVPB DAILY [facility] Dextrose/Sodium Chloride 1,000 mls @ 100 mls/hr 03/09/18 11:12 03/09/18 12:28 D5-Ns - IV 100 mls/hr ASDIR [facility] Administration Lactobacillus Acidophilus 1 cap 03/08/18 10:00 03/09/18 09:27 Bacid - PO 1 cap DAILY [facility] Administration Multivitamins 1 each 03/08/18 10:00 03/09/18 09:32 Total B With C - PO 1 each DAILY [facility] Administration Non-Formulary Medication 1 each 03/08/18 10:00 Calcium Carb/Mag Ox/Zinc Sulf [Gxtadkc-Sqzftrucf-Ztih Tablet] PO DAILY [facility] Non-Formulary Medication 1 each 03/08/18 10:00 Pediatric Multivitamin No.101 [Gummy] PO DAILY [facility] Non-Formulary Medication 25 mg 03/09/18 22:00 03/09/18 21:13 Tetrabenazine [Xenazine] PO 25 mg BID [facility] Administration Ramelteon 8 mg 03/07/18 22:00 03/09/18 21:12 Rozerem PO 8 mg HS [facility] Administration Microbiology 03/07/18 23:00 Blood - Peripheral Venous Blood Culture - Preliminary NO GROWTH OBTAINED AFTER 48 HOURS, INCUBATION TO CONTINUE FOR 3 DAYS. 03/07/18 23:00 Blood - Peripheral Venous Blood Culture - Preliminary NO GROWTH OBTAINED AFTER 48 HOURS, INCUBATION TO CONTINUE FOR 3 DAYS. 03/07/18 22:35 Urine - Urine - Catheterized Urine Culture - Final NO GROWTH OBTAINED IMAGING chest ct: small amount of bibasilar consiilodation and athelactasis ASSESSMENT/PLAN: 1) hem/onc Fever PNA influenza B (03/04/18) - continue tamiflu, patient is afebrile - continue rocephin and zithromax (03/10/18 -) - blood and urine culture negative 2)pulm PNA - continue zithromax and rocephin - prn albuterol nebulizer - keep spo2 above 92% 3) neuro Dysphagia - Recent evaluation from speech and swallow during last admission recommends puree diet w/honey thickened liquids, daughter Ju (HCP) and patient adamantly declined PEG during last admission, PEG placement discussed with HCP and patient, HCP want to think about it - patient does cough while taking pills, will keep NPO, start climinix [place] Chorea - Continue home medications 4) Anxiety/depression - Continue home medications 5) F/E/N: - Monitor electrolytes - climinix 6) Prophylaxis: - Heparin 5,000u sq bid dispo: requires inpatient admission CODE STATUS: FULL CODE Visit type - Emergency Visit Emergency Visit: Yes ED Registration Date: 03/07/18 Care time: The patient presented to the Emergency Department on the above date and was hospitalized for further evaluation of their emergent condition. - New Patient This patient is new to me today: No - Critical Care Critical Care patient: No - Discharge Referral Referred to [facility] Med P.C.: No
--- NOTE | 2018-03-10 09:47 | CONSULT ---
Admitting History and Physical - Primary Care Physician PCP: Anahi Knapp - Admission History of Present Illness: This is a 68 year old female with PMHx of [place]'s Chorea, Anxiety, Depression who presented to the ED with fever after being discharged to nursing facility from [facility] on 03/07 with the diagnosis of influenza. Fever, influenza B, however chest CT with consolidation/atelectasis at both lung bases coughing while eating applesauce with pills NPO Recent admission for Influenza. Swallowing overtly seemed functional on Dys puree/honey thick liquid, with risk of aspiration, especially on liquids. Previous - [facility] Recommendations and orders: Diet Consistency: Dysphagia Pureed Medication Administration: Crushed with applesauce Liquids: Honey Thick Supplement: Magic Cup, Ensure Pudding Transfer summary from [facility] -diet order still "REGULAR DIET,MECHANICAL SOFT DIET,NECTAR THICK LIQUID " Selected Entries 03/07/18 03/07/18 03/08/18 16:30 21:15 05:00 Breakfast Lunch Temperature 100.9 F H 98.4 F 98.6 F 03/08/18 03/08/18 03/08/18 09:00 12:14 14:00 Breakfast 50% Lunch NPO Temperature 99.6 F 98.0 F 03/08/18 03/09/18 03/09/18 22:00 06:00 14:00 Breakfast Lunch Temperature 97.8 F 97.3 F L 99.5 F 03/10/18 06:00 Breakfast Lunch Temperature 98.9 F Laboratory Tests 03/07/18 03/08/18 19:14 07:15 WBC 9.9 D 7.8 Date: 01/24/18 admission: Modified barium swallow performed With Dr. Aguilar,upright lateral, Using pur ed food, nectar thick liquid and honey thick liquid from a cup and spoon. impulsive intake with patients sucking the food quickly into oral cavity. Delayed swallow onset with the fair laryngeal elevation and depression.Mild Silent aspiration on nectar and honey thick liquid from a cup. Aspiration was slightly reduced on honey thick liquid on a teaspoon. Esophagus could not be visualized due to positioning. impression: silent aspiration and honey thick liquid and nectar thick liquid from a copy director, reduced with honey thick liquid on a teaspoon. Patient is at risk of aspiration and dehydration rec: dysphagia. pureed diet and honey thick liquid in a teaspoon only. No cup or straw drinking. reminder pt To flex her head down and swallow hard. If patient becomes congested again or develops recurrent pneumonia, consider gastrostomy tube feeding for hydration with PO pure diet only. 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 No: O2 Dependent - Smoking History Smoking history: Former smoker Have you smoked in the past 12 months: No Aproximately how many cigarettes per day: 20 If you are a former smoker, when did you quit?: 2013 - Alcohol/Substance Use Hx Alcohol Use: No History - Admission Reason For Visit: INFLUENZA - Diagnostics X-ray: Report Reviewed CT Scan: Report Reviewed - General Mental Status: Awake and Alert, Able to Follow Commands, Confused (Impaired insight.) Attention: Distractible Ability to Follow Directions: Fair Head/Neck Control: Fair - Hearing Hearing: Normal Speech Evaluation - Communication Primary Language: NAURUAN Communication: Yes: Dysarthria Oral Expression Ability: Yes: Moderate Impairment, Severe Impairment - Speech Production Apraxia: No Intelligibility: Yes: Moderately Impaired, Severely Impaired - Speech Characteristics Voice Loudness: Mildly Soft/Quiet Voice Pitch: Yes: Normal Voice Phonatory-based Quality: Yes: Dysphonia, Vocal Wetness Speech Pattern: Impaired Speech Clarity: < 25% Nasal Resonance: Hyponasal/Denasal Articulation: Yes: Imprecise Rate of Speech: Too Fast - Language/Auditory Comprehension Follows: Yes: 1 Stage Simple Commands Observation: Comprehends Conversational Speech: Yes - Language/Verbal Expression Able to Communicate Wants and Needs: Yes: Moderately Impaired - Swallow Evaluation/Bedside Assessment Current Nutritional Intake: NPO Oral Secretions: Yes: Tongue Coated (secretions) Dentition: Yes: Adequate Facial Symmetry at Rest: Symmetrical Lingual Movement: Symmetric Laryngeal Movement: Reduced Excursion, Labored,delay initiation, Reduced Velocity, Other (often no swallow triggered. Pt needs repeated cues to trigger a swallow reflex.) Rate of Intake: Impulsive Oral Prep Time: Increased A-P Transit: Impaired (increased time) Timing of Swallow: Delayed (often absent) Coughing/Throat Clear: Yes Change in Voice: Yes Recommendations - Speech Evaluation, Impression/Plan Impression: Speech intelligibilty mod to severely impaired today. Poor insight.Presently Severe oropharyngeal dysphagia with high risk of aspiration , especially on liquids. Presently, swallowing is weak, often not triggered,with vocal wetness and cough. Pt is a full code. Pt with baseline Moderate dysphagia with aspiration on nectar and honey thick liquids inconsistently, sec dyscoordination and varying cognitive status. Now with exacerbation and deterioration of swallowing status sec to Influenza. Additionally, diet order at [facility] soft/nectar thick liquid upon transfer. - Disposition Discharge to: To be Determined - Dysphagia Impressions/Plan Swallowing Skills: Impaired Dysphagia Impressions: Severe Impairment, Suspect Aspiration *Silent aspiration: cannot be R/O at bedside Recommendations: Palliative Care (Discuss code status. PEG insertion at least for hydration. Hopefully swallowing will improve to the point that she can tolererate pureed diet by mouth.), Other (Consider Clinimix, if not medically contraindicated) - Recommendations Diet Consistency: NPO Medication Administration: Crushed with applesauce
[2018-03-10] MEDS: ACETAMINOPHEN 325 MG TABLET (FP) PO PRN (10:00)
[2018-03-10] MEDS: VITAMIN B COMPLEX W/C COMBO TABLET (FP) PO SCH (10:01)
[2018-03-10] MEDS: clonazePAM 0.5 MG TABLET PO SCH ×2 (10:01→21:26)
[2018-03-10] MEDS: LACTOBACILLUS ACIDOPHILUS 1 TABLET PO SCH (10:02)
[2018-03-10] MEDS: HEPARIN NA (PORCINE) 5,000 UNITS/ML 1ML VIAL SQ SCH ×2 (10:02→21:26)
[2018-03-10] MEDS: CALCIUM 500MG/VIT-D 200 UNITS COMBO TABLET (FP) PO SCH (10:02)
[2018-03-10] MEDS: TETRABENAZINE 25 MG PO SCH ×2 (10:03→21:28)
[2018-03-10] MEDS: GLYCOPYRROLATE 1 MG TABLET PO SCH ×2 (10:03→21:27)
[2018-03-10] MEDS: FLUoxetine HCL 20 MG CAPSULE (FP) PO SCH (10:14)
[2018-03-10] MEDS ORDERED: OSELTAMIVIR PHOSPHATE 75 MG CAPSULE PO SCH (10:15)
[2018-03-10] MEDS: AZITHROMYCIN IVPB 250 MG in DEXTROSE 5%-WATER - 250 ML IVPB SCH (10:15)
[2018-03-10] MEDS: CEFTRIAXONE 1 G/50 ML PREMIX 50 ML IVPB SCH (12:30)
[2018-03-10] MEDS: AMINO ACIDS 4.25%/D5W 1,000 ML IV SCH ×2 (12:30→23:09)
[2018-03-10] MEDS: OSELTAMIVIR PHOSPHATE 75 MG CAPSULE PO SCH ×2 (12:30→21:27)
--- NOTE | 2018-03-10 12:36 | EKG ---
Test Reason : Blood Pressure : / mmHG Vent. Rate : 070 BPM Atrial Rate : 070 BPM P-R Int : 154 ms QRS Dur : 068 ms QT Int : 452 ms P-R-T Axes : 029 010 025 degrees QTc Int : 488 ms POOR DATA QUALITY, INTERPRETATION MAY BE ADVERSELY AFFECTED NORMAL SINUS RHYTHM POSSIBLE ANTERIOR INFARCT (CITED ON OR BEFORE 29-NOV-2017) ABNORMAL ECG WHEN COMPARED WITH ECG OF 04-MAR-2018 22:12, QUESTIONABLE CHANGE IN INITIAL FORCES OF ANTERIOR LEADS Confirmed by RADHA TURK MD ([id number]) on 03/10/2018 12:36:33 PM Referred By: MD MANZANO Confirmed By:RADHA TURK MD
[2018-03-10] MEDS: RAMELTEON 8 MG TABLET PO SCH (21:27)
[2018-03-11 06:40] VITALS: BP 141/67; PULSE 65; TEMP 98
[2018-03-11] MEDS: CALCIUM 500MG/VIT-D 200 UNITS COMBO TABLET (FP) PO SCH (09:31)
[2018-03-11] MEDS: FLUoxetine HCL 20 MG CAPSULE (FP) PO SCH (09:31)
[2018-03-11] MEDS: OSELTAMIVIR PHOSPHATE 75 MG CAPSULE PO SCH (09:32)
[2018-03-11] MEDS: clonazePAM 0.5 MG TABLET PO SCH (09:32)
[2018-03-11] MEDS ORDERED: PT OWN MED DRAWER 7, Y5N ONE ×2 (09:37→14:47)
[2018-03-11] MEDS: VITAMIN B COMPLEX W/C COMBO TABLET (FP) PO SCH (09:38)
[2018-03-11] MEDS: TETRABENAZINE 25 MG PO SCH (09:38)
[2018-03-11] MEDS: GLYCOPYRROLATE 1 MG TABLET PO SCH (09:38)
[2018-03-11] MEDS: LACTOBACILLUS ACIDOPHILUS 1 TABLET PO SCH (09:38)
[2018-03-11] MEDS: CEFTRIAXONE 1 G/50 ML PREMIX 50 ML IVPB SCH (09:38)
[2018-03-11] MEDS: HEPARIN NA (PORCINE) 5,000 UNITS/ML 1ML VIAL SQ SCH (10:00)
--- NOTE | 2018-03-11 10:59 | DS ---
Physical Exam: SUBJECTIVE: Patient seen and examined, ambulatory at bedside, denies any chest pain or shortness of breath. OBJECTIVE: Patient is a 68 y/o woman with a PMH of Lorane's Chorea, Anxiety , Depression. Who presents from the [facility] sent in for fever and altered mental status. Patient was recently admitted 03/05-03/07 for Influenza. Per nursing staff, patient is not at baseline- more confused, lethargic. ER course was notable for: (1) T max 100.9 (2) Neutrophils 83.6 (3) Pulse Ox 84%, improved 96% on 2L Vital Signs Period Temp Pulse Resp BP Sys/Wills Pulse Ox Last 24 Hr 97.6 F-98.1 F 56-73 18-19 100-141/64-67 96-96 PHYSICAL EXAM GENERAL: The patient is awake, alert, and fully oriented, in no acute distress. HEAD: Normal with no signs of trauma. EYES: PERRL, extraocular movements intact, sclera anicteric, conjunctiva clear. No ptosis. ENT: Ears normal, nares patent, oropharynx clear without exudates, moist mucous membranes. NECK: Trachea midline, full range of motion, supple. LUNGS: Breath sounds equal, clear to apexes, diminished to base, no wheezes, no crackles, no accessory muscle use. HEART: Regular rate and rhythm, S1, S2 without murmur, rub or gallop. ABDOMEN: Soft, nontender, nondistended, normoactive bowel sounds, no guarding, no rebound, no hepatosplenomegaly, no masses. EXTREMITIES: 2+ pulses, warm, well-perfused, no edema. NEUROLOGICAL: Cranial nerves II through XII grossly intact. dysarthia, unsteady gait. observed. PSYCH: Normal mood, normal affect. SKIN: Warm, dry, normal turgor, no rashes or lesions noted LABS CBC WBC 7.8 K/mm3 (4.0-10.8) 03/08/18 07:15 RBC 4.33 M/mm3 (3.60-5.2) 03/08/18 07:15 Hgb 12.6 GM/dl (10.7-15.3) 03/08/18 07:15 Hct 36.3 % (32.4-45.2) 03/08/18 07:15 MCV 84.0 fl (80-96) 03/08/18 07:15 MCH 29.2 pg (25.7-33.7) 03/08/18 07:15 MCHC 34.8 g/dl (32.0-36.0) 03/08/18 07:15 RDW 12.0 % (11.6-15.6) 03/08/18 07:15 Plt Count 336 K/MM3 (134-434) 03/08/18 07:15 MPV 7.1 fl (7.5-11.1) L 03/08/18 07:15 Neutrophils % 82.1 % (42.8-82.8) 03/08/18 07:15 Lymphocytes % 11.5 % (8-40) 03/08/18 07:15 Monocytes % 6.0 % (3.8-10.2) 03/08/18 07:15 Eosinophils % 0.2 % (0-4.5) 03/08/18 07:15 Basophils % 0.2 % (0-2.0) 03/08/18 07:15 CMP Sodium 139 mmol/L (136-145) 03/08/18 07:15 Potassium 4.0 mmol/L (3.5-5.1) 03/08/18 07:15 Chloride 106 mmol/L (98-107) 03/08/18 07:15 Carbon Dioxide 27 mmol/L (22-28) 03/08/18 07:15 Anion Gap 6 (8-16) L 03/08/18 07:15 BUN 21 mg/dl (7-18) H D 03/08/18 07:15 Creatinine 0.7 mg/dl (0.6-1.3) 03/08/18 07:15 Creat Clearance w eGFR > 60 (>60) 03/07/18 19:14 Random Glucose 102 mg/dl (74-106) 03/08/18 07:15 Calcium 8.9 mg/dl (8.4-10.2) 03/08/18 07:15 Phosphorus 3.4 mg/dl (2.5-4.6) 03/08/18 07:15 Magnesium 2.1 mg/dL (1.8-2.4) 03/08/18 07:15 Total Bilirubin 0.6 mg/dl (0.2-1.0) 03/07/18 19:14 AST 20 U/L (10-42) 03/07/18 19:14 ALT 13 U/L (10-40) 03/07/18 19:14 Alkaline Phosphatase 81 U/L (32-92) 03/07/18 19:14 Total Protein 7.4 g/dl (6.4-8.3) 03/07/18 19:14 Albumin 3.8 g/dl (3.5-5.0) 03/07/18 19:14 Microbiology 03/07/18 23:00 Blood - Peripheral Venous Blood Culture - Preliminary NO GROWTH OBTAINED AFTER 72 HOURS, INCUBATION TO CONTINUE FOR 2 DAYS. 03/07/18 23:00 Blood - Peripheral Venous Blood Culture - Preliminary NO GROWTH OBTAINED AFTER 72 HOURS, INCUBATION TO CONTINUE FOR 2 DAYS. 03/07/18 22:35 Urine - Urine - Catheterized Urine Culture - Final NO GROWTH OBTAINED IMAGING chest ct: small amount of bibasilar consiilodation and athelactasis HOSPITAL COURSE: Patient was admitted from the emergency department to the medical surgical unit, for fever secondary to PNA and influenza B (03/04/18), tamiflu continued. Ct scan of the chest was notable for small bibasilar consolidation, she was treated with rocephin and zithromax (03/09/18 -03/11/18), blood and urine culture negative to date. Sp02 is 96% on room air. 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 Recent evaluation from speech and swallow during last admission recommends puree diet w /honey thickened liquids, daughter Ju (HCP) and patient adamantly declined PEG during last admission, PEG placement discussed again with HCP, Fadi Hassan ( Brother) and patient, PEG placement was declined at this time. Puree diet with honey thickened liquid was given in addition to climinix. qualified craft worker electrician was consulted upon the request of family in regards to outpatient hospice ([facility]) . PLAN - discharge home with referral to [facility], discharge plan reviewed reviewed with patient and brother (Fadi Hassan) - continue ceftin antibiotic for the next 7 days - albuterol nebulizer every 4 hours as needed for shortness of breath or wheezing - continue puree diet with honey thickened liquids - discussed with Dr Lise Mccartney [phone], agree with plan, case discussed with Daniel (nurse) at [facility] and discharge plan reviewed with Daniel Date of Admission:03/07/18 Date of Discharge: 03/11/18 Minutes to complete discharge: 45 Discharge Summary Reason For Visit: INFLUENZA Current Active Problems DVT prophylaxis (Acute) Influenza (Acute) Condition: Improved - Instructions Diet, Activity, Other Instructions: - CONTINUE PUREE DIET WITH HONEY THICKENED LIQUIDS - CONTINUE CEFTIN ANTIBIOTIC DAILY PRESCRIBED - ALBUTEROL NEBULIZER EVERY 4 HOURS NEEDED FOR SHORTNESS OF BREATH OR WHEEZING - PLEASE FOLLOW UP WITH YOUR PRIMARY CARE PHYSICIAN DR MASCORRO WITHIN 1 WEEK Disposition: VNS/HOME HEALTH CARE - Home Medications Comprehensive Discharge Medication List: Ambulatory Orders RX: clonazePAM [KlonoPIN] 0.5 mg PO BID 08/30/12 RX: Fluoxetine HCl 60 mg PO AM 08/14/14 RX: Tetrabenazine [Xenazine] 25 mg PO BID 08/14/14 RX: Atropine 1% Ophth. Solution - 1 drop PO TID 11/29/17 RX: Glycopyrrolate 1 mg PO BID 11/29/17 RX: Lactose-Reduced Food [Ensure High Protein] 237 ml PO DAILY 11/29/17 RX: Pediatric Multivitamin No.101 [Gummy] 1 each PO DAILY 11/29/17 RX: Ramelteon [Rozerem] 8 mg PO HS 11/29/17 RX: Vitamin B Complex 1 each PO DAILY 11/29/17 RX: clonazePAM [Klonopin -] 1 mg PO HS 11/29/17 RX: Albuterol Sulfate Inhaler - [Ventolin HFA Inhaler -] 2 inh PO Q4H PRN #1 inh 01/24/18 RX: Calcium Carb/Mag Ox/Zinc Sulf [Xrefwhe-Akfapblnp-Qzfk Tablet] 1 each PO DAILY 03/05/18 RX: Acetaminophen [Tylenol .Regular Strength -] 650 mg PO Q4H PRN tablet RX: Albuterol 0.083% Nebulizer Tianna [Ventolin 0.083% Nebulizer Soln -] 1 neb NEB Q4H PRN #120 vial 03/07/18 RX: Calcium 500Mg/Vit-D 200 Units [Os-Bethel 500+D -] 1 tab PO DAILY tab 03/07/18 RX: Lactobacillus Acidophilus [Bacid -] 1 cap PO DAILY #30 cap 03/07/18 RX: Nebulizer and Compressor [[place] Choice Nebulizer] 1 each MC DAILY #1 each 03/07/18 RX: Oseltamivir Phosphate [Tamiflu -] 75 mg PO BID #8 capsule 03/07/18 This patient is new to me today: No Emergency Visit: Yes ED Registration Date: 03/07/18 Care time: The patient presented to the Emergency Department on the above date and was hospitalized for further evaluation of their emergent condition. Critical Care patient: No - Discharge Referral Referred to [facility] No
[2018-03-11] MEDS: AZITHROMYCIN IVPB 250 MG in DEXTROSE 5%-WATER - 250 ML IVPB SCH (11:00)
[2018-03-11] MEDS: AMINO ACIDS 4.25%/D5W 1,000 ML IV SCH (11:06)
== END 2018-03-11 14:52 | disposition home health service (06) | DRG 193 ==
LOC: FER 16:28 → INTOOBSV 20:35 → FM/S 20:35 → OBSVTOIN 20:35
PROVIDERS: ADMIT Internal Medicine; ATTEND Nurse Practitioner Family
DX: J10.01 Influenza due to other identified influenza virus with the same other identified influenza virus pneumonia (principal); E43 Unspecified severe protein-calorie malnutrition; G10 Huntington's disease; J98.11 Atelectasis; J11.1 Influenza due to unidentified influenza virus with other respiratory manifestations; F41.8 Other specified anxiety disorders; G47.00 Insomnia, unspecified; R13.10 Dysphagia, unspecified; Z68.22 Body mass index [BMI] 22.0-22.9, adult; Z87.891 Personal history of nicotine dependence
CPT/HCPCS: 36415; 71045-TC-FY; 71250-TC; 80048; 80053; 81003; 81015; 83735; 84100; 85025; 87040; 87086; 93005; 99282-25; J0131; J1644

== ENCOUNTER 2019-01-01 23:21 | Observation (INO) | payer OTHER, BC ==
--- NOTE | 2019-01-01 23:50 | PDOC ---
History of Present Illness - General Chief Complaint: Lethargy Stated Complaint: LETHARGIC & UNSTEADY GAIT Time Seen by Provider: 01/01/19 23:25 - History of Present Illness Initial Comments: 01/01/19 23:50 The patient is a 68 year old female brought via EMS from intermediate, with a significant past medical history of [place]'s Disease with associated severe dysarthria, who presents to the ED with concern by [facility] staff for increased lethargy and generalized weakness. History from pt is limited due to dysarthria. Per the patients daughter, pt has had increasing weakness which happens when she has aspiration pna. Pt has had aspiration PNA multiple times in the past, and pt/family have declined a PEG tube. Pt has been on a pureed diet since May which has helped in terms of the aspiration. Daughter notes she has had a cough for a few weeks and has been taking robitussin for it at the [facility]. Daughter states the staff told her the pt was asleep and woke up " completely out of it," not speaking as much as she usually does. Pt got flu and pna vaccine this year Allergies: Lactose Past surgical history: None reported Social History: No alcohol, tobacco or drug use reported Past History - Past Medical History Allergies/Adverse Reactions: Allergies Allergy/AdvReac Type Severity Reaction Status Date / Time lactose AdvReac Intermediate Verified 01/01/19 23:28 Home Medications: Ambulatory Orders clonazePAM [KlonoPIN] 0.5 mg PO BID 08/30/12 Fluoxetine HCl 60 mg PO AM 08/14/14 Tetrabenazine [Xenazine] 25 mg PO BID 08/14/14 Atropine 1% Ophth. Solution - 1 drop PO TID 11/29/17 Glycopyrrolate 1 mg PO BID 11/29/17 Pediatric Multivitamin No.101 [Gummy] 1 each PO DAILY 11/29/17 Ramelteon [Rozerem] 8 mg PO HS 11/29/17 Vitamin B Complex 1 each PO DAILY 11/29/17 clonazePAM [Klonopin -] 1 mg PO HS 11/29/17 Albuterol 0.083% Nebulizer Tianna [Ventolin 0.083% Nebulizer Soln -] 1 neb NEB Q4H PRN #120 vial 03/07/18 Calcium 500Mg/Vit-D 200 Units [Os-Bethel 500+D -] 1 tab PO DAILY tab 03/07/18 Lactobacillus Acidophilus [Bacid -] 1 cap PO DAILY #30 cap 03/07/18 Acetaminophen [Tylenol .Regular Strength -] 650 mg PO Q6H PRN tablet 03/11/18 COPD: No Psychiatric Problems: Yes (ANXIETY,INSOMNIA, DEPRESSION) Other medical history: Steve's disease - Immunization History Td Vaccination: Yes TDAP Vaccination: Yes Immunization Up to Date: Yes - Suicide/Smoking/Psychosocial Hx Smoking Status: Yes Smoking History: Never smoked Years of Tobacco Use: 0 Have you smoked in the past 12 months: No Number of Cigarettes Smoked Daily: 20 If you are a former smoker, when did you quit?: 2013 Information on smoking cessation initiated: No 'Breaking Loose' booklet given: 05/07/14 Hx Alcohol Use: No Drug/Substance Use Hx: No Substance Use Type: None Hx Substance Use Treatment: No Review of Systems - Review of Systems Comments:: 01/02/19 00:40 Limited due to clinical condition *Physical Exam - Vital Signs Last Vital Signs Temp Pulse Resp BP Pulse Ox 98.6 F 75 20 118/73 93 L 01/01/19 23:28 01/01/19 23:28 01/01/19 23:28 01/01/19 23:28 01/01/19 23:28 - Physical Exam Comments: 01/02/19 01:50 GENERAL: lethargic but arousable. Answers "no" when asked if in any pain HEAD: No signs of trauma EYES: Sclera anicteric, conjunctiva clear ENT: Oropharynx clear without exudates, or erythema. Moist mucosa. No nasal DC. LUNGS: Breath sounds equal, clear to auscultation bilaterally. No wheezes, and no crackles HEART: Regular rate and rhythm, normal S1 and S2, no murmurs, rubs or gallops ABDOMEN: Soft, nontender, normoactive bowel sounds. No guarding, no rebound. No masses : rectal temp 99.7, no bleeding EXTREMITIES: Normal range of motion, no edema. No cords, erythema, or tenderness NEUROLOGICAL: Dysarthric, sleepy, can answer yes or no, cranial nerves intact, 4/5 strength b/l SKIN: multiple dried superficial abrasions noted to anterior shins b/l Moderate Sedation - Procedure Monitoring Vital Signs: Procedure Monitoring Vital Signs Temperature 98.6 F 01/01/19 23:28 Pulse Rate 75 01/01/19 23:28 Respiratory Rate 20 01/01/19 23:28 Blood Pressure 118/73 01/01/19 23:28 O2 Sat by Pulse Oximetry (%) 93 L 01/01/19 23:28 Heart Score/ECG Review #1 01/02/19 01:52 Twelve-lead EKG was performed and reviewed by me. Normal sinus rhythm, rate 70. Normal axis and intervals. No ST elevations. Diffuse T-wave flattening. ED Treatment Course - LABORATORY CBC & Chemistry Diagram: 01/02/19 00:40 01/02/19 00:40 - RADIOLOGY Radiology Studies Ordered: Category Date Time Status HEAD CT WITHOUT CONTRAST [CT] Stat CT Scan 01/01/19 23:47 Ordered CHEST X-RAY PORTABLE* [RAD] Stat Radiology 01/01/19 23:46 Ordered Medical Decision Making - Medical Decision Making 01/02/19 01:53 68yo F hx [place]'s disease c/b frequent aspiration PNA presents to the ED with 1 day of lethargy, confusion, weakness, and inability to ambulate. Vitals with hypoxia to 93% and borderline hypotension to 90s/60s. No tachycardia (not on BB or CCB) and pt is rectally afebrile. Plan to do infectious vs metabolic vs neurologic vs ischemic w/u as cause for lethargy. EKG with no SELVIN. Plan: -labs -CXR -CTH -UA -LR 500cc -reassess Pt's daughter Ju has been updated about the pt. 01/02/19 03:38 Labs with mild leukocytosis to 11 CXR clear CTH neg UA with trace leuk, with normal WBCs, and RBCs, UCx pending BP improved to 100s/70s with 500cc LR Will hold off on empiric abx coverage at this point as pt has stable vitals, normal HR throughout, afebrile, and improving BP No clinical evidence of influenza, thus will hold off on testing/empiric tx Pt continues to be lethargic, pt admitted to observation for further monitoring Case discussed with CHUYITA Jhaveri, pt accepted for admission under Dr. Mayfield Called daughter Ju to update her (per her request) but call went to . *DC/Admit/Observation/Transfer Diagnosis at time of Disposition: Hypotension, Lethargic, Weakness - Discharge Dispostion Condition at time of disposition: Stable Decision to Admit order: Yes - Referrals - Patient Instructions - Post Discharge Activity - Attestations Physician Attestion: 01/02/19 03:44 I, Dr. Gabriele Gaviria MD, attest that this document has been prepared under my direction and personally reviewed by me in its entirety. I further attest, that it accurately reflects all work, treatment, procedures and medical decision -making performed by me.
[2019-01-02 01:45] LABS: BASO % 0.4 % (0-2.0); EOS % 0.1 % (0-4.5); HEMATOCRIT 37.4 % (32.4-45.2); HEMOGLOBIN 13.2 GM/dL (10.7-15.3); LYMPH % 8.1 % (8-40); MCH 30.5 pg (25.7-33.7); MCHC 35.3 g/dl (32.0-36.0); MEAN CELL VOLUME 86.4 fl (80-96); MEAN PLT VOLUME 8.3 fl (7.5-11.1); MONO % 4.5 % (3.8-10.2); NEUT % 86.9 % (42.8-82.8); PLATELET COUNT 306 K/MM3 (134-434); RBC 4.33 M/mm3 (3.60-5.2); RDW 12.6 % (11.6-15.6); WHITE BLOOD COUNT 11.2 K/mm3 (4.0-10.0)
[2019-01-02] MEDS ORDERED: LACTATED RINGERS SOLUTION 1000 ML INFUS.BAG IV ONE (01:57)
[2019-01-02 02:01] LABS: URINE APPEARANCE SLCLOUDY; URINE BILIRUBIN NEGATIVE (<2.0 mg/dL); URINE COLOR YELLOW; URINE GLUCOSE (UA) NEGATIVE (NEGATIVE); URINE KETONE NEGATIVE (NEGATIVE); URINE LEUK ESTERASE TRACE (NEGATIVE); URINE NITRITE NEGATIVE (NEGATIVE); URINE PROTEIN NEGATIVE (NEGATIVE); URINE UROBILINOGEN NEGATIVE mg/dL (0.2-1.0)
[2019-01-02 02:22] LABS: URINE MUCUS RARE; YEAST FEW
[2019-01-02 02:24] LABS: ALBUMIN 3.4 g/dl (3.4-5.0); ALK PHOS 103 U/L (45-117); ANION GAP 7 MMOL/L (8-16); BILIRUBIN,TOTAL 0.5 mg/dL (0.2-1); BLOOD UREA NITROGEN 23 mg/dL (7-18); CALCIUM 8.5 mg/dL (8.5-10.1); CHLORIDE 105 mmol/L (98-107); CO2 29 mmol/L (21-32); CREATININE 0.9 mg/dL (0.55-1.3); GLUCOSE,RANDOM 119 mg/dL (74-106); MAGNESIUM 2.4 mg/dL (1.8-2.4); POTASSIUM 4.1 mmol/L (3.5-5.1); SGOT/AST 25 U/L (15-37); SGPT/ALT 12 U/L (13-61); SODIUM 141 mmol/L (136-145)
[2019-01-02] MEDS ORDERED: SODIUM CHLORIDE 1,000 ML IV SCH ×2 (03:45→09:26)
[2019-01-02 04:42] LABS: PHOSPHOROUS 4.4 mg/dL (2.5-4.9)
[2019-01-02 05:01] VITALS: BMI 21.4
--- NOTE | 2019-01-02 08:40 | HP ---
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 She was brought in to the ED last night when staff found her to be lethargic. She has a history of dysphagia with multiple episodes of aspiration pneumonia; daughter notes that she has had similar symptoms. ER course was notable for: (1) Head CT: No acute process (2) CXR: No acute process (3) WBC mildly elevated at 11.2 (4) UA with trace leukocyte esterase, 5 WBCs Recent Travel: None PCP: Dr. Lee Michele PAST MEDICAL HISTORY: Dousman's disease, anxiety, depression PAST SURGICAL HISTORY: None Social History: , has two children. Lives in assisted living with 1/2 day private aide. Wheelchair-bound. Smoking: Former smoker Alcohol: None Drugs: None Family History: Brother and father (Dousman's) Allergies lactose Adverse Reaction (Intermediate, Verified 01/01/19 23:28) abd. cramps and diarrhea HOME MEDICATIONS: Home Medications Medication Instructions Recorded clonazePAM [KlonoPIN] 0.5 mg PO BID 08/30/12 Fluoxetine HCl 60 mg PO AM 08/14/14 Tetrabenazine [Xenazine] 25 mg PO BID 08/14/14 Atropine 1% Ophth. Solution - 1 drop PO TID 11/29/17 Glycopyrrolate 1 mg PO BID 11/29/17 Pediatric Multivitamin No.101 1 each PO DAILY 11/29/17 [Gummy] Ramelteon [Rozerem] 8 mg PO HS 11/29/17 Vitamin B Complex 1 each PO DAILY 11/29/17 clonazePAM [Klonopin -] 1 mg PO HS 11/29/17 Albuterol 0.083% Nebulizer Tianna 1 neb NEB Q4H PRN #120 vial 03/07/18 [Ventolin 0.083% Nebulizer Soln -] Calcium 500Mg/Vit-D 200 Units 1 tab PO DAILY tab 03/07/18 [Os-Bethel 500+D -] Lactobacillus Acidophilus [Bacid -] 1 cap PO DAILY #30 cap 03/07/18 Acetaminophen [Tylenol .Regular 650 mg PO Q6H PRN tablet 03/11/18 Strength -] Citalopram Hydrobromide [Celexa -] 40 mg PO DAILY 01/02/19 Zolpidem Tartrate [Ambien] 5 mg PO HS 01/02/19 REVIEW OF SYSTEMS CONSTITUTIONAL: Absent: fever, chills, diaphoresis, generalized weakness, malaise, loss of appetite, weight change HEENT: Absent: rhinorrhea, nasal congestion, throat pain, throat swelling, difficulty swallowing, mouth swelling, ear pain, eye pain, visual changes CARDIOVASCULAR: Absent: chest pain, syncope, palpitations, irregular heart rate, lightheadedness , peripheral edema RESPIRATORY: Absent: cough, shortness of breath, dyspnea with exertion, orthopnea, wheezing, stridor, hemoptysis GASTROINTESTINAL: Absent: abdominal pain, abdominal distension, nausea, vomiting, diarrhea, constipation, melena, hematochezia GENITOURINARY: Absent: dysuria, frequency, urgency, hesitancy, hematuria, flank pain, genital pain MUSCULOSKELETAL: Absent: myalgia, arthralgia, joint swelling, back pain, neck pain SKIN: Absent: rash, itching, pallor HEMATOLOGIC/IMMUNOLOGIC: Absent: easy bleeding, easy bruising, lymphadenopathy, frequent infections ENDOCRINE: Absent: unexplained weight gain, unexplained weight loss, heat intolerance, cold intolerance NEUROLOGIC: Denies lethargy Absent: headache, focal weakness or paresthesias, dizziness, unsteady gait, seizure, mental status changes, bladder or bowel incontinence PSYCHIATRIC: Anxiety, depression Absent: suicidal or homicidal ideation, hallucinations. PHYSICAL EXAMINATION Vital Signs - 24 hr 01/01/19 01/01/19 01/02/19 23:28 23:45 01:31 Temperature 98.6 F 99.7 F H Pulse Rate 75 65 Pulse Rate [ 63 Left] Respiratory 20 18 Rate Blood Pressure 118/73 Blood Pressure 96/62 [Right Arm] O2 Sat by Pulse 93 L 95 95 Oximetry (%) 01/02/19 01/02/19 01/02/19 02:46 04:10 06:00 Temperature 97.2 F L Pulse Rate 74 Pulse Rate [ 62 62 Left] Respiratory 18 18 18 Rate Blood Pressure 131/67 Blood Pressure 104/66 129/76 [Right Arm] O2 Sat by Pulse 95 97 96 Oximetry (%) 01/02/19 08:10 Temperature Pulse Rate Pulse Rate [ Left] Respiratory 18 Rate Blood Pressure Blood Pressure [Right Arm] O2 Sat by Pulse 96 Oximetry (%) GENERAL: Awake, alert, and fully oriented, in no acute distress. HEAD: Normal with no signs of trauma. EYES: Pupils equal, round and reactive to light, extraocular movements intact, sclera anicteric, conjunctiva clear. No lid lag. EARS, NOSE, THROAT: Ears normal, nares patent, oropharynx clear without exudates. Moist mucous membranes. NECK: Normal range of motion, supple without lymphadenopathy, JVD, or masses. LUNGS: Breath sounds equal, clear to auscultation bilaterally. No wheezes, and no crackles. No accessory muscle use. HEART: Regular rate and rhythm, normal S1 and S2 without murmur, rub or gallop. ABDOMEN: Soft, nontender, not distended, normoactive bowel sounds, no guarding, no rebound, no masses. No hepatomegaly or splenomegaly. MUSCULOSKELETAL: Normal range of motion at all joints. No bony deformities or tenderness. No CVA tenderness. UPPER EXTREMITIES: 2+ pulses, warm, well-perfused. No cyanosis. No clubbing. No peripheral edema. LOWER EXTREMITIES: 2+ pulses, warm, well-perfused. No calf tenderness. No peripheral edema. NEUROLOGICAL: Severe dysarthria, but able to communicate. Choreiform movements. Cranial nerves II-XII intact. Normal speech. Normal gait. PSYCHIATRIC: Cooperative. Good eye contact. Appropriate mood and affect. SKIN: Warm, dry, normal turgor, no rashes or lesions noted, normal capillary refill. Laboratory Results - last 24 hr 01/02/19 01/02/19 01/02/19 00:40 00:40 00:40 WBC 11.2 H RBC 4.33 Hgb 13.2 Hct 37.4 MCV 86.4 MCH 30.5 MCHC 35.3 RDW 12.6 Plt Count 306 MPV 8.3 Absolute Neuts (auto) 9.8 H Neutrophils % 86.9 H Lymphocytes % 8.1 Monocytes % 4.5 Eosinophils % 0.1 Basophils % 0.4 Nucleated RBC % 0 Sodium 141 Potassium 4.1 Chloride 105 Carbon Dioxide 29 Anion Gap 7 L BUN 23 H Creatinine 0.9 Creat Clearance w eGFR > 60 Random Glucose 119 H Calcium 8.5 Phosphorus 4.4 Magnesium 2.4 Total Bilirubin 0.5 AST 25 ALT 12 L Alkaline Phosphatase 103 Creatine Kinase 117 Troponin I < 0.02 Cancelled Total Protein 7.0 Albumin 3.4 Urine Color Urine Appearance Urine pH Ur Specific [place] Urine Protein Urine Glucose (UA) Urine Ketones Urine Blood Urine Nitrite Urine Bilirubin Urine Urobilinogen Ur Leukocyte Esterase Urine WBC (Auto) Urine RBC (Auto) Urine Mucus Urine Yeast 01/02/19 01/02/19 00:40 00:50 WBC RBC Hgb Hct MCV MCH MCHC RDW Plt Count MPV Absolute Neuts (auto) Neutrophils % Lymphocytes % Monocytes % Eosinophils % Basophils % Nucleated RBC % Sodium Potassium Chloride Carbon Dioxide Anion Gap BUN Creatinine Creat Clearance w eGFR Random Glucose Calcium Phosphorus Magnesium Cancelled Total Bilirubin AST ALT Alkaline Phosphatase Creatine Kinase Troponin I Total Protein Albumin Urine Color Yellow Urine Appearance Slcloudy Urine pH 6.0 Ur Specific [place] 1.025 Urine Protein Negative Urine Glucose (UA) Negative Urine Ketones Negative Urine Blood Negative Urine Nitrite Negative Urine Bilirubin Negative Urine Urobilinogen Negative Ur Leukocyte Esterase Trace Urine WBC (Auto) 5 Urine RBC (Auto) 11 Urine Mucus Rare Urine Yeast Few ASSESSMENT/PLAN: 68-year-old female placed in observation with AMS/lethargy. Currently alert and interactive on exam, baseline per daughter. 1. AMS/lethargy -Awake, alert, answering all questions appropriately, asking to eat -CT brain neg -CXR neg for infiltrate, afebrile - unlikely aspiration -Follow up urine culture -will treat empirically for UTI with Keflex given trace leukocyte esterase, mild leukocytosis/left shift, and foul-smelling urine 2. Steve's chorea -Continue Xenazine -Fall precautions 3. Anxiety/depression -Continue Celexa, Remeron, clonazepam 4. F/E/N -NS 100 mL/hr -Puree diet with thickened liquids (had S&S exam at last visit, is on this diet at home, declines PEG) 5. Ppx -PT DISPO: Consider dc today if able to eat, ambulate well. Plan discussed with daughter Ju in person. Visit type - Emergency Visit Emergency Visit: Yes ED Registration Date: 01/02/19 Care time: The patient presented to the Emergency Department on the above date and was hospitalized for further evaluation of their emergent condition. - New Patient This patient is new to me today: Yes Date on this admission: 01/02/19 - Critical Care Critical Care patient: No
[2019-01-02] MEDS ORDERED: CEPHALEXIN MONOHYDRATE 500 MG CAPSULE (UD) PO SCH (10:15)
[2019-01-02] MEDS ORDERED: clonazePAM 0.5 MG TABLET PO SCH (11:00)
[2019-01-02] MEDS ORDERED: TETRABENAZINE 25 MG PO SCH (11:00)
[2019-01-02] MEDS ORDERED: CITALOPRAM HYDROBROMIDE 20 MG TABLET (FP) PO SCH (11:00)
[2019-01-02] MEDS ORDERED: GLYCOPYRROLATE 1 MG TABLET PO SCH (11:00)
[2019-01-02] MEDS ORDERED: PT OWN MED DRAWER 7, Y5N ONE ×2 (11:09→14:10)
--- NOTE | 2019-01-02 13:14 | EKG ---
Test Reason : Blood Pressure : / mmHG Vent. Rate : 070 BPM Atrial Rate : 070 BPM P-R Int : 162 ms QRS Dur : 066 ms QT Int : 468 ms P-R-T Axes : 027 008 017 degrees QTc Int : 505 ms NORMAL SINUS RHYTHM LOW VOLTAGE QRS POSSIBLE INFERIOR INFARCT , AGE UNDETERMINED CANNOT RULE OUT ANTERIOR INFARCT (CITED ON OR BEFORE 29-NOV-2017) ABNORMAL ECG WHEN COMPARED WITH ECG OF 07-MAR-2018 19:29, NO SIGNIFICANT CHANGE WAS FOUND Confirmed by KWAKU DOVE, CHIRAG ([id number]) on 01/02/2019 1:14:02 PM Referred By: JOHN Confirmed By:CHIRAG AMES MD
[2019-01-02] MEDS ORDERED: ATROPINE SO4 1% OPHTH SOLN 5 ML BOTTLE OU SCH (14:00)
--- NOTE | 2019-01-02 14:17 | DS ---
Physical Exam: SUBJECTIVE: Patient seen and examined OBJECTIVE: Vital Signs Period Temp Pulse Resp BP Sys/Wills Pulse Ox Last 24 Hr 97.2 F-99.7 F 62-75 18-20 96-131/62-76 93-97 PHYSICAL EXAM GENERAL: The patient is awake, alert, and fully oriented, in no acute distress. HEAD: Normal with no signs of trauma. EYES: PERRL, extraocular movements intact, sclera anicteric, conjunctiva clear. ENT: Ears normal, nares patent, oropharynx clear without exudates, moist mucous membranes. NECK: Trachea midline, full range of motion, supple. LUNGS: Breath sounds equal, clear to auscultation bilaterally, no wheezes, no crackles, no accessory muscle use. HEART: Regular rate and rhythm, S1, S2 without murmur, rub or gallop. ABDOMEN: Soft, nontender, nondistended, normoactive bowel sounds, no guarding, no rebound, no hepatosplenomegaly, no masses. EXTREMITIES: 2+ pulses, warm, well-perfused, no edema. NEUROLOGICAL: Severe dysarthria, choreiform movements. Cranial nerves II through XII grossly intact. Normal speech, gait not observed. PSYCH: Normal mood, normal affect. SKIN: Warm, dry, normal turgor, no rashes or lesions noted. LABS Laboratory Results - last 24 hr 01/02/19 01/02/19 01/02/19 00:40 00:40 00:40 WBC 11.2 H RBC 4.33 Hgb 13.2 Hct 37.4 MCV 86.4 MCH 30.5 MCHC 35.3 RDW 12.6 Plt Count 306 MPV 8.3 Absolute Neuts (auto) 9.8 H Neutrophils % 86.9 H Lymphocytes % 8.1 Monocytes % 4.5 Eosinophils % 0.1 Basophils % 0.4 Nucleated RBC % 0 Sodium 141 Potassium 4.1 Chloride 105 Carbon Dioxide 29 Anion Gap 7 L BUN 23 H Creatinine 0.9 Creat Clearance w eGFR > 60 Random Glucose 119 H Calcium 8.5 Phosphorus 4.4 Magnesium 2.4 Total Bilirubin 0.5 AST 25 ALT 12 L Alkaline Phosphatase 103 Creatine Kinase 117 Troponin I < 0.02 Cancelled Total Protein 7.0 Albumin 3.4 Urine Color Urine Appearance Urine pH Ur Specific [place] Urine Protein Urine Glucose (UA) Urine Ketones Urine Blood Urine Nitrite Urine Bilirubin Urine Urobilinogen Ur Leukocyte Esterase Urine WBC (Auto) Urine RBC (Auto) Urine Mucus Urine Yeast 01/02/19 01/02/19 00:40 00:50 WBC RBC Hgb Hct MCV MCH MCHC RDW Plt Count MPV Absolute Neuts (auto) Neutrophils % Lymphocytes % Monocytes % Eosinophils % Basophils % Nucleated RBC % Sodium Potassium Chloride Carbon Dioxide Anion Gap BUN Creatinine Creat Clearance w eGFR Random Glucose Calcium Phosphorus Magnesium Cancelled Total Bilirubin AST ALT Alkaline Phosphatase Creatine Kinase Troponin I Total Protein Albumin Urine Color Yellow Urine Appearance Slcloudy Urine pH 6.0 Ur Specific [place] 1.025 Urine Protein Negative Urine Glucose (UA) Negative Urine Ketones Negative Urine Blood Negative Urine Nitrite Negative Urine Bilirubin Negative Urine Urobilinogen Negative Ur Leukocyte Esterase Trace Urine WBC (Auto) 5 Urine RBC (Auto) 11 Urine Mucus Rare Urine Yeast Few HOSPITAL COURSE: This is a 68-year-old female with a history of [place]'s Disease referred from her assisted living facility with change in mental status/ lethargy. Placed in observation. Workup notable for: CXR: no acute process, CT head: no acute process, mildly elevated WBC (11.2), UA with 5 WBCs (cloudy and foul-smelling), afebrile. Today, patient alert, oriented, eating well, able to get up with assistance. No complaints. Will treat with Keflex for possible UTI. To be discharged in care of daughter to return to assisted living facility. Followup instructions and return precautions reviewed. Date of Admission:01/02/19 Date of Discharge: 01/02/19 Minutes to complete discharge: 45 Discharge Summary Reason For Visit: HYPOTENTION, LETHARGY Condition: Improved - Instructions Diet, Activity, Other Instructions: -Rest and stay well-hydrated -Take Keflex as prescribed for urinary tract infection -Follow up with Dr. Michele next week -Return for additional episodes of fever, change in mental status, lethargy, or any other concerning symptoms Disposition: HOME - Home Medications Comprehensive Discharge Medication List: Ambulatory Orders clonazePAM [KlonoPIN] 0.5 mg PO BID 08/30/12 Fluoxetine HCl 60 mg PO AM 08/14/14 Tetrabenazine [Xenazine] 25 mg PO BID 08/14/14 Atropine 1% Ophth. Solution - 1 drop PO TID 11/29/17 Glycopyrrolate 1 mg PO BID 11/29/17 Pediatric Multivitamin No.101 [Gummy] 1 each PO DAILY 11/29/17 Ramelteon [Rozerem] 8 mg PO HS 11/29/17 Vitamin B Complex 1 each PO DAILY 11/29/17 clonazePAM [Klonopin -] 1 mg PO HS 11/29/17 Albuterol 0.083% Nebulizer [place] [Ventolin 0.083% Nebulizer Soln -] 1 neb NEB Q4H PRN #120 vial 03/07/18 Calcium 500Mg/Vit-D 200 Units [Os-[place] 500+D -] 1 tab PO DAILY tab 03/07/18 Lactobacillus Acidophilus [Bacid -] 1 cap PO DAILY #30 cap 03/07/18 Acetaminophen [Tylenol .Regular Strength -] 650 mg PO Q6H PRN tablet 03/11/18 Cephalexin [Keflex] 500 mg PO BID #10 capsule 01/02/19 Citalopram Hydrobromide [Celexa -] 40 mg PO DAILY 01/02/19 Zolpidem Tartrate [Ambien] 5 mg PO HS 01/02/19 This patient is new to me today: No Emergency Visit: Yes ED Registration Date: 01/02/19 Care time: The patient presented to the Emergency Department on the above date and was hospitalized for further evaluation of their emergent condition. Critical Care patient: No - Discharge Referral Referred to [facility] No
[2019-01-02 14:48] VITALS: BP 104/78; PULSE 65; TEMP 98.8
[2019-01-02] MEDS ORDERED: RAMELTEON 8 MG TABLET PO SCH (22:00)
[2019-01-03] MEDS ORDERED: CALCIUM 500MG/VIT-D 200 UNITS COMBO TABLET (FP) PO SCH (10:00)
== END 2019-01-02 16:22 ==
LOC: FER 23:21 → FM/S 01-02 03:42
PROVIDERS: ADMIT Internal Medicine; ATTEND Registered Nurse Emergency
PROC: 3E0337Z Introduction of Electrolytic and Water Balance Substance into Peripheral Vein, Percutaneous Approach (ICD-10-PCS; principal; 2019-01-02)
DX: I95.9 Hypotension, unspecified (principal); R53.83 Other fatigue; R53.1 Weakness; G10 Huntington's disease; R47.1 Dysarthria and anarthria; F41.9 Anxiety disorder, unspecified; F32.9 Major depressive disorder, single episode, unspecified; Z86.69 Personal history of other diseases of the nervous system and sense organs; Z88.6 Allergy status to analgesic agent
CPT/HCPCS: 36415; 70450-TC; 71045-TC-FY; 80053; 81003; 81015; 82550; 83735; 84100; 84484; 85025; 87040; 87086; 93005; 99285-25; G0378; J7030

== ENCOUNTER 2019-01-23 17:00 | Observation (INO) | payer OTHER, BC ==
--- NOTE | 2019-01-23 17:18 | PDOC ---
History of Present Illness - General Chief Complaint: Injury Stated Complaint: FALL Time Seen by Provider: 01/23/19 17:02 History Source: Patient - History of Present Illness Initial Comments: 01/23/19 18:11 68f w/pmh of dementia and Trosper's sent from [facility] for unwitnessed fall after which the patient was seen vomiting multiple times. 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 01/23/19 18:35 01/23/19 18:55 Past History - Past Medical History Allergies/Adverse Reactions: Allergies Allergy/AdvReac Type Severity Reaction Status Date / Time lactose AdvReac Intermediate Verified 01/01/19 23:28 Home Medications: Ambulatory Orders Atropine 1% 1 drop PO TID 01/23/19 Calcium Magnesium Zinc 1 tab PO DAILY 01/23/19 Clonazepam 0.5 mg PO TID 01/23/19 Glycopyrrolate 1 mg PO BID 01/23/19 Multivitamins [Tab-A-Vit -] 1 tab PO DAILY 01/23/19 Ramelteon [Rozerem] 8 mg PO HS 01/23/19 Tetrabenazine 25 mg PO BID 01/23/19 Vitamin B Complex 1 each PO DAILY 01/23/19 Zolpidem Tartrate [Ambien] 5 mg PO HS 01/23/19 COPD: No Psychiatric Problems: Yes (ANXIETY,INSOMNIA, DEPRESSION) - Immunization History Td Vaccination: Yes TDAP Vaccination: Yes Immunization Up to Date: Yes - Suicide/Smoking/Psychosocial Hx Smoking Status: Yes Smoking History: Never smoked Years of Tobacco Use: 0 Have you smoked in the past 12 months: No Number of Cigarettes Smoked Daily: 20 If you are a former smoker, when did you quit?: 2013 'Breaking Loose' booklet given: 05/07/14 Hx Alcohol Use: No Drug/Substance Use Hx: No Substance Use Type: None Hx Substance Use Treatment: No Review of Systems - Review of Systems Able to Perform ROS?: No (dementia) *Physical Exam - Physical Exam General Appearance: Yes: Disheveled, Cachetic HEENT: positive: EOMI, LINDA, Other Respiratory/Chest: positive: Lungs Clear, Normal Breath Sounds. negative: Chest Tender, Respiratory Distress Cardiovascular: positive: Regular Rhythm, Regular Rate, S1, S2 Gastrointestinal/Abdominal: positive: Normal Bowel Sounds, Flat, Soft. negative : Tender Musculoskeletal: positive: Normal Inspection. negative: CVA Tenderness Extremity: positive: Normal Capillary Refill, Normal Inspection, Normal Range of Motion ED Treatment Course - LABORATORY CBC & Chemistry Diagram: 01/23/19 17:55 01/23/19 17:55 - RADIOLOGY Radiology Studies Ordered: Category Date Time Status HEAD CT (STROKE) [CT] Stat CT Scan 01/23/19 17:02 Ordered Medical Decision Making - Medical Decision Making 01/23/19 18:40 Started stroke order set as we didn't know the patient baseline before speaking to daughter however suspicion for stroke. CXR negative for acute processes. CT head and neck pending. Had to give haldol and ativan for sedation due to choreic movements All labs WNL except BUN.creat showing evidence of prerenal process/dehydration. Trop negative 01/23/19 18:55 Patient signed out to Dr. Ferro. *DC/Admit/Observation/Transfer Diagnosis at time of Disposition: Steve chorea, Fall - Discharge Dispostion Condition at time of disposition: Stable - Referrals - Patient Instructions - Post Discharge Activity
--- NOTE | 2019-01-23 17:18 | PDOC ---
Attending Attestation - Resident Resident Name: Alli Stephen - ED Attending Attestation I have performed the following: I have examined & evaluated the patient, The case was reviewed & discussed with the resident, I agree w/resident's findings & plan, Exceptions are as noted - HPI HPI: 01/25/19 12:46 [facility]. The fall was unwitnessed , but she was found on the floor. She vomited soon afterwards, and was thought to be less alert. She suffers from dementia and chorea and is difficult to assess her baseline physical and mental status. However, her daughter who later arrived in the emergency department states that she is usually more verbal, appearing somewhat less alert than usual. - Physicial Exam PE: 01/25/19 12:47 Physical exam reveals a nonverbal female with frequent choreiform movements but he does not appear to be in pain or other distress Vital signs are stable Head is atraumatic with no evidence of bruises, hematoma, abrasions or lacerations PERRLA, fundi are not visualized due to movement, and ENT is clear Neck reveals no bruits masses or nodes. It appears supple there is no point tenderness or deformity and there appears to be no pain with movement Chest is clear. No chest wall or rib cage tenderness deformity CV S1 and S2 normal, regular rhythm, no murmurs rubs or gallops Abdomen soft nontender without mass or organomegaly. No CVAT Spine and pelvis without point tenderness or deformity Range of motion of the hips appears to be adequate without pain or restriction. No other visible or palpable trauma to the trunk or extremities Neurological exam is difficult to perform because of the patient's inability to cooperate or follow directions. However. She seems to be moving all extremities , there appeared to be for lives movements, and no other cranial nerve deficits - Medical Decision Making 01/25/19 12:50 Assessment: Fall, subsequent vomiting, rule out occult cardiac or neurological event, TIA, or stroke. No evidence on exam of significant trauma, but the patient is difficult to fully evaluate because of her inability to cooperate, dementia, choreiform movements. Plan: CBC, chemistries, cardiac enzymes, chest x-ray, EKG, and head CT. Further evaluation and treatment depending on results. Signed out to Dr. Ferro at [address] of [address] Labs and cardiac enzymes without significant abnormalities. Patient still appears to be less verbal than usual according to her daughter.
[2019-01-23] MEDS ORDERED: LORazepam 2 MG/ML SDV VIAL ONE (18:04)
[2019-01-23 18:11] LABS: BASO % 0.4 % (0-2.0); HEMATOCRIT 40.6 % (32.4-45.2); HEMOGLOBIN 13.5 GM/dl (10.7-15.3); LYMPH % 19.9 % (8-40); MCH 28.9 pg (25.7-33.7); MCHC 33.4 g/dl (32.0-36.0); MEAN CELL VOLUME 86.7 fl (80-96); MEAN PLT VOLUME 7.9 fl (7.5-11.1); MONO % 5.9 % (3.8-10.2); NEUT % 72.8 % (42.8-82.8); PLATELET COUNT 373 K/MM3 (134-434); RBC 4.68 M/mm3 (3.60-5.2); RDW 11.8 % (11.6-15.6); WHITE BLOOD COUNT 7.8 K/mm3 (4.0-10.8)
[2019-01-23 18:18] LABS: INR 1.14 (0.82-1.09); PROTHROMBIN TIME (PATIENT) 12.7 SEC (10.2-13.0)
[2019-01-23 18:28] LABS: ALBUMIN 3.7 g/dl (3.4-5.0); ALK PHOS 88 U/L (45-117); ANION GAP 7 MMOL/L (8-16); BILIRUBIN,TOTAL 0.5 mg/dl (0.2-1); BLOOD UREA NITROGEN 23 mg/dl (7-18); CALCIUM 9.2 mg/dl (8.5-10); CHLORIDE 103 mmol/L (98-107); CHOLESTEROL 188 mg/dl (50-200); CO2 27 mmol/L (21-32); CREATININE 0.8 mg/dl (0.55-1.3); GLUCOSE,RANDOM 117 mg/dl (74-106); HDL CHOLESTEROL 45 mg/dl (40-60); POTASSIUM 4.3 mmol/L (3.5-5.1); SGOT/AST 18 U/L (15-37); SGPT/ALT 8 U/L (13-61); SODIUM 137 mmol/L (136-145); TOT PROT 6.8 g/dl (6.4-8.2); TRIGLYCERIDES 121 mg/dl (0-150)
[2019-01-23] MEDS ORDERED: HALOPERIDOL LACTATE 5 MG/ML IM ONE (18:29)
[2019-01-23] MEDS ORDERED: HALOPERIDOL LACTATE 5 MG/ML ONE (18:30)
[2019-01-23 19:21] LABS: URINE APPEARANCE Clear; URINE BILIRUBIN Negative (NEGATIVE); URINE COLOR Yellow; URINE GLUCOSE (UA) Negative (NEGATIVE); URINE KETONE Negative (NEGATIVE); URINE LEUK ESTERASE Negative (NEGATIVE); URINE NITRITE Negative (NEGATIVE); URINE PROTEIN Negative (NEGATIVE); URINE UROBILINOGEN 0.2 (0.2-1.0)
[2019-01-23 19:35] LABS: EPI CELLS 1+ /HPF; URINE BACTERIA 1+ /hpf (NEGATIVE); URINE WBC 0-2 (0-5)
[2019-01-23] MEDS ORDERED: SODIUM CHLORIDE 0.9% 500 ML INFUS.BAG IV ONE (20:09)
--- NOTE | 2019-01-23 22:01 | PDOC ---
*Physical Exam - Vital Signs Last Vital Signs Temp Pulse Resp BP Pulse Ox 100 F H 91 H 20 137/98 97 01/23/19 19:30 01/23/19 21:23 01/23/19 21:23 01/23/19 19:30 01/23/19 19:30 ED Treatment Course - LABORATORY CBC & Chemistry Diagram: 01/23/19 17:55 01/23/19 17:55 - ADDITIONAL ORDERS Additional order review: Laboratory Results 01/23/19 01/23/19 01/23/19 19:13 17:55 17:55 PT with INR INR Sodium Potassium Chloride Carbon Dioxide Anion Gap BUN Creatinine Creat Clearance w eGFR Random Glucose Calcium Total Bilirubin AST ALT Alkaline Phosphatase Creatine Kinase Troponin I < 0.03 Total Protein Albumin Triglycerides Cholesterol Total LDL Cholesterol HDL Cholesterol Urine Color Yellow Urine Appearance Clear Urine pH 7.0 Ur Specific [place] 1.025 Urine Protein Negative Urine Glucose (UA) Negative Urine Ketones Negative Urine Blood Trace-intact H Urine Nitrite Negative Urine Bilirubin Negative Urine Urobilinogen 0.2 Ur Leukocyte Esterase Negative Urine RBC 10-15 Urine WBC 0-2 Ur Epithelial Cells 1+ Urine Bacteria 1+ Blood Type O POSITIVE Antibody Screen Negative 01/23/19 01/23/19 17:55 17:55 PT with INR 12.7 INR 1.14 Sodium 137 Potassium 4.3 Chloride 103 Carbon Dioxide 27 Anion Gap 7 L BUN 23 H Creatinine 0.8 Creat Clearance w eGFR > 60 Random Glucose 117 H Calcium 9.2 Total Bilirubin 0.5 AST 18 ALT 8 L Alkaline Phosphatase 88 Creatine Kinase 58 Troponin I Total Protein 6.8 Albumin 3.7 Triglycerides 121 Cholesterol 188 Total LDL Cholesterol 119 H HDL Cholesterol 45 Urine Color Urine Appearance Urine pH Ur Specific [place] Urine Protein Urine Glucose (UA) Urine Ketones Urine Blood Urine Nitrite Urine Bilirubin Urine Urobilinogen Ur Leukocyte Esterase Urine RBC Urine WBC Ur Epithelial Cells Urine Bacteria Blood Type Antibody Screen 01/23/19 17:55 RBC 4.68 MCV 86.7 MCHC 33.4 RDW 11.8 MPV 7.9 Neutrophils % 72.8 Lymphocytes % 19.9 Monocytes % 5.9 Eosinophils % 1.0 Basophils % 0.4 - Medications Given in the ED: ED Medications Discontinued Medications Generic Name Dose Route Start Last Admin Trade Name Freq PRN Reason Stop Dose Admin Haloperidol 5 mg 01/23/19 18:29 01/23/19 18:33 Haldol Injection (Fast Acting) - IM 01/23/19 18:30 5 mg ONCE ONE Administration Lorazepam 2 mg 01/23/19 18:03 01/23/19 18:10 Ativan Injection - IVPUSH 01/23/19 18:04 2 mg ONCE ONE Administration Sodium Chloride 1,000 ml 01/23/19 20:09 01/23/19 20:13 Normal Saline - IV 01/23/19 20:10 1,000 ml ONCE ONE Administration Medical Decision Making - Medical Decision Making 01/23/19 22:00 other than mild prerenal azotemia, we havent identified any significant abnormalities. as per daughter and NH staff, patient not back to baseline (usually she talks) will admit for observation low grade fever (100.2), flu swab sent *DC/Admit/Observation/Transfer Diagnosis at time of Disposition: [place] chorea Fall Qualifiers: Encounter type: initial encounter Qualified Code(s): W19.XXXA - Unspecified fall, initial encounter - Discharge Dispostion Condition at time of disposition: Stable Decision to Admit order: Yes - Referrals - Patient Instructions - Post Discharge Activity
--- NOTE | 2019-01-23 22:18 | HP ---
CHIEF COMPLAINT: s/p Fall, Nausea and Vomiting PCP: Dr. Aceves HISTORY OF PRESENT ILLNESS: This is a 68 y/o woman from an assisted living facility with a PMHx of: Anthony's Disease, Anxiety, Depression, Dementia. Who presents to the ED for a unwitnessed fall. Per ED records: unwitnessed fall after which the patient was seen vomiting multiple times. She has dementia at baseline and chorea due to [place]'s but according to daughter patient is less verbal than usual and may have lost a tooth on the upper right maxillary. ER course was notable for: (1) Head CT- neg ICH (2) Chest Xray- neg Infiltrate, no Effusion (3) BUN 23 Recent Travel: None PAST MEDICAL HISTORY: See HPI PAST SURGICAL HISTORY: Social History: Smoking: None Alcohol: None Drugs: None Resides at [facility] Family History: Unable to Obtain Allergies lactose Adverse Reaction (Intermediate, Verified 01/01/19 23:28) abd. cramps and diarehha HOME MEDICATIONS: Home Medications Medication Instructions Recorded Atropine 1% 1 drop PO TID 01/23/19 Calcium Magnesium Zinc 1 tab PO DAILY 01/23/19 Clonazepam 0.5 mg PO TID 01/23/19 Glycopyrrolate 1 mg PO BID 01/23/19 Multivitamins [Tab-A-Vit -] 1 tab PO DAILY 01/23/19 Ramelteon [Rozerem] 8 mg PO HS 01/23/19 Tetrabenazine 25 mg PO BID 01/23/19 Vitamin B Complex 1 each PO DAILY 01/23/19 Zolpidem Tartrate [Ambien] 5 mg PO HS 01/23/19 REVIEW OF SYSTEMS Dementia CONSTITUTIONAL: Absent: fever, chills, diaphoresis, generalized weakness, malaise, loss of appetite, weight change HEENT: Absent: rhinorrhea, nasal congestion, throat pain, throat swelling, difficulty swallowing, mouth swelling, ear pain, eye pain, visual changes CARDIOVASCULAR: Absent: chest pain, syncope, palpitations, irregular heart rate, lightheadedness , peripheral edema RESPIRATORY: Absent: cough, shortness of breath, dyspnea with exertion, orthopnea, wheezing, stridor, hemoptysis GASTROINTESTINAL: Absent: abdominal pain, abdominal distension, nausea, vomiting, diarrhea, constipation, melena, hematochezia GENITOURINARY: Absent: dysuria, frequency, urgency, hesitancy, hematuria, flank pain, genital pain MUSCULOSKELETAL: Absent: myalgia, arthralgia, joint swelling, back pain, neck pain SKIN: Absent: rash, itching, pallor HEMATOLOGIC/IMMUNOLOGIC: Absent: easy bleeding, easy bruising, lymphadenopathy, frequent infections ENDOCRINE: Absent: unexplained weight gain, unexplained weight loss, heat intolerance, cold intolerance NEUROLOGIC: Absent: headache, focal weakness or paresthesias, dizziness, unsteady gait, seizure, mental status changes, bladder or bowel incontinence PSYCHIATRIC: Absent: anxiety, depression, suicidal or homicidal ideation, hallucinations. PHYSICAL EXAMINATION Vital Signs - 24 hr 01/23/19 01/23/19 01/23/19 17:00 18:00 18:20 Temperature 98.3 F Pulse Rate 89 Pulse Rate [ 92 H 82 Left Apical] Respiratory 18 18 18 Rate Blood Pressure 150/72 Blood Pressure 129/76 147/88 [Right Arm] O2 Sat by Pulse 94 L 96 95 Oximetry (%) 01/23/19 01/23/19 19:30 21:23 Temperature 100 F H Pulse Rate Pulse Rate [ 82 91 H Left Apical] Respiratory 16 20 Rate Blood Pressure Blood Pressure 137/98 [Right Arm] O2 Sat by Pulse 97 Oximetry (%) GENERAL: Awake, arousable- at baseline, in no acute distress. HEAD: Normal with no signs of trauma. EYES: Pupils equal, round and reactive to light, extraocular movements intact, sclera anicteric, conjunctiva clear. No lid lag. EARS, NOSE, THROAT: Ears normal, nares patent, oropharynx clear without exudates. Moist mucous membranes. NECK: Normal range of motion, supple without lymphadenopathy, JVD, or masses. LUNGS: Breath sounds equal, clear to auscultation bilaterally. No wheezes, and no crackles. No accessory muscle use. HEART: Regular rate and rhythm, normal S1 and S2 without murmur, rub or gallop. ABDOMEN: Soft, nontender, not distended, normoactive bowel sounds, no guarding, no rebound, no masses. No hepatomegaly or splenomegaly. MUSCULOSKELETAL: Spastic motion at all joints. No bony deformities or tenderness. No CVA tenderness. UPPER EXTREMITIES: 2+ pulses, warm, well-perfused. No cyanosis. No clubbing. No peripheral edema. LOWER EXTREMITIES: 2+ pulses, warm, well-perfused. No calf tenderness. No peripheral edema. NEUROLOGICAL: Cranial nerves II-XII intact. Non verbal speech- at baseline. Gait not observed. PSYCHIATRIC: Cooperative. Good eye contact. Appropriate mood and affect. SKIN: Warm, dry, normal turgor, no rashes or lesions noted, normal capillary refill. Laboratory Results - last 24 hr 01/23/19 01/23/19 01/23/19 17:55 17:55 17:55 WBC 7.8 RBC 4.68 Hgb 13.5 Hct 40.6 MCV 86.7 MCH 28.9 MCHC 33.4 RDW 11.8 Plt Count 373 MPV 7.9 Absolute Neuts (auto) 5.7 Neutrophils % 72.8 Lymphocytes % 19.9 Monocytes % 5.9 Eosinophils % 1.0 Basophils % 0.4 PT with INR 12.7 INR 1.14 Sodium 137 Potassium 4.3 Chloride 103 Carbon Dioxide 27 Anion Gap 7 L BUN 23 H Creatinine 0.8 Creat Clearance w eGFR > 60 Random Glucose 117 H Calcium 9.2 Total Bilirubin 0.5 AST 18 ALT 8 L Alkaline Phosphatase 88 Creatine Kinase 58 Troponin I Total Protein 6.8 Albumin 3.7 Triglycerides 121 Cholesterol 188 Total LDL Cholesterol 119 H HDL Cholesterol 45 Urine Color Urine Appearance Urine pH Ur Specific [place] Urine Protein Urine Glucose (UA) Urine Ketones Urine Blood Urine Nitrite Urine Bilirubin Urine Urobilinogen Ur Leukocyte Esterase Urine RBC Urine WBC Ur Epithelial Cells Urine Bacteria Blood Type Antibody Screen 01/23/19 01/23/19 01/23/19 17:55 17:55 19:13 WBC RBC Hgb Hct MCV MCH MCHC RDW Plt Count MPV Absolute Neuts (auto) Neutrophils % Lymphocytes % Monocytes % Eosinophils % Basophils % PT with INR INR Sodium Potassium Chloride Carbon Dioxide Anion Gap BUN Creatinine Creat Clearance w eGFR Random Glucose Calcium Total Bilirubin AST ALT Alkaline Phosphatase Creatine Kinase Troponin I < 0.03 Total Protein Albumin Triglycerides Cholesterol Total LDL Cholesterol HDL Cholesterol Urine Color Yellow Urine Appearance Clear Urine pH 7.0 Ur Specific [place] 1.025 Urine Protein Negative Urine Glucose (UA) Negative Urine Ketones Negative Urine Blood Trace-intact H Urine Nitrite Negative Urine Bilirubin Negative Urine Urobilinogen 0.2 Ur Leukocyte Esterase Negative Urine RBC 10-15 Urine WBC 0-2 Ur Epithelial Cells 1+ Urine Bacteria 1+ Blood Type O POSITIVE Antibody Screen Negative ASSESSMENT/PLAN: This is a 68 y/o woman placed in Observation for Fever, s/p Fall at [place] for further evaluation of their emergent condition. Plan: See Problem List FEN Replete lytes Pureed Diet DVT ppx SCDs Consider AC if LOS > 48 hrs Dispo: Observation Problem List - Problem (1) Fall Assessment/Plan: Head CT- neg ICH Neuro checks Fall precautions Monitor CBC, BMP Monitor vitals Tylenol prn Code(s): W19.XXXA - UNSPECIFIED FALL, INITIAL ENCOUNTER Qualifiers: Encounter type: initial encounter Qualified Code(s): W19.XXXA - Unspecified fall, initial encounter (2) Fever Assessment/Plan: Likely secondary to Viral vs Stress Blood Cultures-pending Tylenol Prn UA- neg for UTI Chest Xray image- no infiltrate no effusion CBC, BMP in am Monitor vitals Code(s): R50.9 - FEVER, UNSPECIFIED (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 - New Patient This patient is new to me today: Yes Date on this admission: 01/23/19 - Critical Care Critical Care patient: No
[2019-01-23 23:27] VITALS: BMI 21.4
[2019-01-24] MEDS ORDERED: RAMELTEON 8 MG TABLET PO SCH (00:03)
[2019-01-24] MEDS ORDERED: ZOLPIDEM TARTRATE 5 MG TABLET PO PRN (00:15)
[2019-01-24] MEDS: TETRABENAZINE 25 MG PO SCH ×2 (00:29→09:54)
[2019-01-24] MEDS: GLYCOPYRROLATE 1 MG TABLET PO SCH ×2 (00:44→09:54)
[2019-01-24] MEDS ORDERED: PT OWN MED DRAWER 7, Y5N ONE ×2 (00:54→09:49)
[2019-01-24 08:36] LABS: BASO % 0.4 % (0-2.0); EOS % 1.5 % (0-4.5); HEMATOCRIT 36.7 % (32.4-45.2); HEMOGLOBIN 12.4 GM/dl (10.7-15.3); LYMPH % 19.6 % (8-40); MCH 29.3 pg (25.7-33.7); MCHC 33.7 g/dl (32.0-36.0); MEAN CELL VOLUME 86.8 fl (80-96); MONO % 5.9 % (3.8-10.2); NEUT % 72.6 % (42.8-82.8); PLATELET COUNT 342 K/MM3 (134-434); RBC 4.23 M/mm3 (3.60-5.2); RDW 11.4 % (11.6-15.6); WHITE BLOOD COUNT 9.8 K/mm3 (4.0-10.8)
[2019-01-24 08:43] LABS: ANION GAP 8 MMOL/L (8-16); BLOOD UREA NITROGEN 17 mg/dl (7-18); CALCIUM 8.9 mg/dl (8.5-10); CHLORIDE 105 mmol/L (98-107); CO2 26 mmol/L (21-32); CREATININE 0.8 mg/dl (0.55-1.3); GLUCOSE,RANDOM 94 mg/dl (74-106); POTASSIUM 3.8 mmol/L (3.5-5.1); SODIUM 139 mmol/L (136-145)
[2019-01-24] MEDS: clonazePAM 0.5 MG TABLET PO SCH ×2 (09:51→13:23)
[2019-01-24] MEDS ORDERED: VITAMIN B COMPLEX W/C COMBO TABLET (FP) PO SCH (10:00)
[2019-01-24] MEDS ORDERED: MULTIVITAMINS (DAILY MVI) TABLET (FP) PO SCH (10:00)
--- NOTE | 2019-01-24 11:57 | DS ---
Physical Exam: SUBJECTIVE: Patient seen and examined, pt awake, alert, back to baseline. asking if she can go home. Labs unremarkable this morning, afebrile, called and discussed results with daughter, Ju, patient medically stable. can discharge to [facility] today. OBJECTIVE: Vital Signs Period Temp Pulse Resp BP Sys/Wills Pulse Ox Last 24 Hr 97.4 F-100 F 73-100 16-20 119-150/72-99 92-97 PHYSICAL EXAM GENERAL: The patient is awake, alert, and fully oriented, in no acute distress. HEAD: Normal with no signs of trauma. EYES: PERRL, extraocular movements intact, sclera anicteric, conjunctiva clear. ENT: Ears normal, nares patent, oropharynx clear without exudates, moist mucous membranes. NECK: Trachea midline, full range of motion, supple. LUNGS: Breath sounds equal, clear to auscultation bilaterally, no wheezes, no crackles, no accessory muscle use. HEART: Regular rate and rhythm, S1, S2 without murmur, rub or gallop. ABDOMEN: Soft, nontender, nondistended, normoactive bowel sounds, no guarding, no rebound, no hepatosplenomegaly, no masses. EXTREMITIES: 2+ pulses, warm, well-perfused, no edema. NEUROLOGICAL: Cranial nerves II through XII grossly intact. Normal speech, gait not observed. PSYCH: Normal mood, normal affect. SKIN: Warm, dry, normal turgor, no rashes or lesions noted. LABS Laboratory Results - last 24 hr 01/23/19 01/23/19 01/23/19 17:55 17:55 17:55 WBC 7.8 RBC 4.68 Hgb 13.5 Hct 40.6 MCV 86.7 MCH 28.9 MCHC 33.4 RDW 11.8 Plt Count 373 MPV 7.9 Absolute Neuts (auto) 5.7 Neutrophils % 72.8 Lymphocytes % 19.9 Monocytes % 5.9 Eosinophils % 1.0 Basophils % 0.4 PT with INR 12.7 INR 1.14 Sodium 137 Potassium 4.3 Chloride 103 Carbon Dioxide 27 Anion Gap 7 L BUN 23 H Creatinine 0.8 Creat Clearance w eGFR > 60 Random Glucose 117 H Calcium 9.2 Total Bilirubin 0.5 AST 18 ALT 8 L Alkaline Phosphatase 88 Creatine Kinase 58 Troponin I Total Protein 6.8 Albumin 3.7 Triglycerides 121 Cholesterol 188 Total LDL Cholesterol 119 H HDL Cholesterol 45 Urine Color Urine Appearance Urine pH Ur Specific [place] Urine Protein Urine Glucose (UA) Urine Ketones Urine Blood Urine Nitrite Urine Bilirubin Urine Urobilinogen Ur Leukocyte Esterase Urine RBC Urine WBC Ur Epithelial Cells Urine Bacteria Influenza A (Rapid) Influenza B (Rapid) Blood Type Antibody Screen 01/23/19 01/23/19 01/23/19 17:55 17:55 19:13 WBC RBC Hgb Hct MCV MCH MCHC RDW Plt Count MPV Absolute Neuts (auto) Neutrophils % Lymphocytes % Monocytes % Eosinophils % Basophils % PT with INR INR Sodium Potassium Chloride Carbon Dioxide Anion Gap BUN Creatinine Creat Clearance w eGFR Random Glucose Calcium Total Bilirubin AST ALT Alkaline Phosphatase Creatine Kinase Troponin I < 0.03 Total Protein Albumin Triglycerides Cholesterol Total LDL Cholesterol HDL Cholesterol Urine Color Yellow Urine Appearance Clear Urine pH 7.0 Ur Specific [place] 1.025 Urine Protein Negative Urine Glucose (UA) Negative Urine Ketones Negative Urine Blood Trace-intact H Urine Nitrite Negative Urine Bilirubin Negative Urine Urobilinogen 0.2 Ur Leukocyte Esterase Negative Urine RBC 10-15 Urine WBC 0-2 Ur Epithelial Cells 1+ Urine Bacteria 1+ Influenza A (Rapid) Influenza B (Rapid) Blood Type O POSITIVE Antibody Screen Negative 01/23/19 01/24/19 01/24/19 21:30 07:10 07:10 WBC 9.8 RBC 4.23 Hgb 12.4 Hct 36.7 MCV 86.8 MCH 29.3 MCHC 33.7 RDW 11.4 L Plt Count 342 MPV 8.0 Absolute Neuts (auto) 7.2 Neutrophils % 72.6 Lymphocytes % 19.6 Monocytes % 5.9 Eosinophils % 1.5 Basophils % 0.4 PT with INR INR Sodium 139 Potassium 3.8 Chloride 105 Carbon Dioxide 26 Anion Gap 8 BUN 17 Creatinine 0.8 Creat Clearance w eGFR > 60 Random Glucose 94 Calcium 8.9 Total Bilirubin AST ALT Alkaline Phosphatase Creatine Kinase Troponin I Total Protein Albumin Triglycerides Cholesterol Total LDL Cholesterol HDL Cholesterol Urine Color Urine Appearance Urine pH Ur Specific [place] Urine Protein Urine Glucose (UA) Urine Ketones Urine Blood Urine Nitrite Urine Bilirubin Urine Urobilinogen Ur Leukocyte Esterase Urine RBC Urine WBC Ur Epithelial Cells Urine Bacteria Influenza A (Rapid) Negative Influenza B (Rapid) Negative Blood Type Antibody Screen HOSPITAL COURSE: Date of Admission:01/23/19 Date of Discharge: 01/24/19 This is a 68 y/o woman placed in Observation for Fever, s/p Fall at [facility] for further evaluation of their emergent condition. patient alert, back to baseline , afebrile, medically stable for discharge. 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 Transfer patient with assistance. Disposition: [facility] - Home Medications Comprehensive Discharge Medication List: Ambulatory Orders Atropine 1% 1 drop PO TID 01/23/19 Calcium Magnesium Zinc 1 tab PO DAILY 01/23/19 Clonazepam 0.5 mg PO TID 01/23/19 Glycopyrrolate 1 mg PO BID 01/23/19 Multivitamins [Multivit ([facility] Formulary)] 1 tab PO DAILY 01/23/19 Ramelteon [Rozerem] 8 mg PO HS 01/23/19 Tetrabenazine 25 mg PO BID 01/23/19 Vitamin B Complex 1 each PO DAILY 01/23/19 Zolpidem Tartrate [Ambien] 5 mg PO HS 01/23/19 This patient is new to me today: Yes Date on this admission: 01/24/19 Emergency Visit: Yes ED Registration Date: 01/23/19 Care time: The patient presented to the Emergency Department on the above date and was hospitalized for further evaluation of their emergent condition. Critical Care patient: No - Discharge Referral Referred to [facility] Med P.C.: No
[2019-01-24 14:05] VITALS: TEMP 98.6
[2019-01-24 14:07] VITALS: BP 118/78; PULSE 82
[2019-01-24] MEDS ORDERED: clonazePAM 0.5 MG TABLET PO SCH (18:00)
--- NOTE | 2019-01-26 11:07 | EKG ---
Test Reason : Blood Pressure : / mmHG Vent. Rate : 082 BPM Atrial Rate : 082 BPM P-R Int : 168 ms QRS Dur : 072 ms QT Int : 388 ms P-R-T Axes : 067 013 035 degrees QTc Int : 453 ms NORMAL SINUS RHYTHM LOW VOLTAGE QRS CANNOT RULE OUT INFERIOR INFARCT (CITED ON OR BEFORE 01-JAN-2019) CANNOT RULE OUT ANTERIOR INFARCT (CITED ON OR BEFORE 29-NOV-2017) ABNORMAL ECG WHEN COMPARED WITH ECG OF 01-JAN-2019 23:46, NO SIGNIFICANT CHANGE WAS FOUND Confirmed by KEVIN DOVE, SATINDER ([id number]) on 01/26/2019 11:07:26 AM Referred By: DR STOVALL Confirmed By:SATINDER BROWN MD
== END 2019-01-24 13:55 ==
LOC: FER 17:00 → FM/S 22:08
PROVIDERS: ADMIT Internal Medicine; ATTEND Nurse Practitioner Family
PROC: 3E033GC Introduction of Other Therapeutic Substance into Peripheral Vein, Percutaneous Approach (ICD-10-PCS; principal; 2019-01-23)
PROC: 3E0337Z Introduction of Electrolytic and Water Balance Substance into Peripheral Vein, Percutaneous Approach (ICD-10-PCS; 2019-01-23)
PROC: 3E023GC Introduction of Other Therapeutic Substance into Muscle, Percutaneous Approach (ICD-10-PCS; 2019-01-23)
DX: Z04.3 Encounter for examination and observation following other accident (principal); G10 Huntington's disease; F02.80 Dementia in other diseases classified elsewhere, unspecified severity, without behavioral disturbance, psychotic disturbance, mood disturbance, and anxiety; R79.89 Other specified abnormal findings of blood chemistry; R50.9 Fever, unspecified; F41.9 Anxiety disorder, unspecified; F32.9 Major depressive disorder, single episode, unspecified; W19.XXXA Unspecified fall, initial encounter; Z91.81 History of falling; Y93.9 Activity, unspecified; Y92.129 Unspecified place in nursing home as the place of occurrence of the external cause
CPT/HCPCS: 36415; 70450-TC; 71045-TC-FY; 80048; 80053; 81003; 81015; 82465; 82550; 83718; 83721; 84478; 84484; 85025; 85610; 86850; 86900; 86901; 87086; 87804; 93005; 96372; 96374; 99285-25; G0378

== ENCOUNTER 2019-04-09 00:28 | Emergency (ER) | payer OTHER, BC ==
--- NOTE | 2019-04-09 00:35 | PDOC ---
History of Present Illness - General Chief Complaint: Urinary Problem Stated Complaint: BIBA, FEVER Time Seen by Provider: 04/09/19 00:31 History Source: Patient Exam Limitations: No Limitations - History of Present Illness Initial Comments: 04/09/19 00:35 This is a 69-year-old female brought in by EMS for evaluation of fever. Patient has history significant for [place]'s chorea and lives in an assisted living facility. Patient began to develop fevers approximately 2:00 this afternoon. Patient does have a history of urosepsis in the past. And has had a cloudy urine. History is limited by patient's advanced progression of her disease. Patient is able to understand but unable to speak coherently. Allergies: as per nursing notes Past Medical History: none Social history: Lives in an assisted living facility Surgical history: None General: + fevers or chills, no weakness, no weight loss HEENT: No change in vision. No sore throat,. No ear pain CardioVascular: no chest discomfort. No shortness of breath Respiratory:No cough, or wheezing. Gastrointestinal: no nausea, vomiting, diarrhea or constipation, No rectal bleeding Genitourinary: No dysuria, hematuria, or frequency Musculoskeletal: No joint or muscle pain or swelling Neurologic: No headache, vertigo, dizziness or loss of consciousness Psychiatric: nor depression Skin: No rashes or easy bruising Endocrine: no increased thirst or abnormal weight change Allergic: no skin or latex allergy All other systems reviewed and normal Exam: General: Well-nourished well-developed individual, no acute distress HEENT: Throat: Normal, tonsils normal, no erythema or exudate Neck: Supple, no meningeal signs, no lymphadenopathy Eyes::Pupils equal reactive and round, extraocular motion intact Chest: Nontender to palpation Cardiac: S1-S2 normal, regular rate and rhythm, no murmurs rubs or gallops Respiratory: Lungs clear to auscultation bilateral Abdomen: Soft, nondistended, normal bowel sounds, there is no tenderness on palpation diffusely Extremities: Warm, dry, no cyanosis, clubbing, or edema Skin: No rashes Neuro: Alert patient has choreiform type movements and neurological is grossly intact Psych: Normal mood and affect Assessment and plan: This is 69-year-old female who was sent in from the assisted living facility for evaluation of fevers. Patient had a 101.4 fever here in the ED area patient cultured up and adult sepsis protocol initiated. Patient will require an admission for sepsis 04/09/19 03:27 Patient given 1 g of ceftriaxone and will be discharged back as her white count is normal she has no left shift and she is able to tolerate by mouth's. Patient was started on Cipro shortly before being sent to the ED so she will go back and continue the Cipro Past History - Past Medical History Allergies/Adverse Reactions: Allergies Allergy/AdvReac Type Severity Reaction Status Date / Time lactose AdvReac Intermediate Verified 01/01/19 23:28 Home Medications: Ambulatory Orders Atropine 1% 1 drop PO TID 01/23/19 Calcium Magnesium Zinc 1 tab PO DAILY 01/23/19 Clonazepam 0.5 mg PO TID 01/23/19 Glycopyrrolate 1 mg PO BID 01/23/19 Multivitamins [Multivit ([facility] Formulary)] 1 tab PO DAILY 01/23/19 Ramelteon [Rozerem] 8 mg PO HS 01/23/19 Tetrabenazine 25 mg PO BID 01/23/19 Vitamin B Complex 1 each PO DAILY 01/23/19 Zolpidem Tartrate [Ambien] 5 mg PO HS 01/23/19 Acetaminophen [Tylenol] 500 mg PO ASDIR PRN 04/09/19 Ciprofloxacin HCl [Cipro] 250 mg PO BID 04/09/19 Citalopram Hydrobromide [Citalopram HBr] 40 mg PO DAILY 04/09/19 COPD: No Dementia: Yes Psychiatric Problems: Yes (ANXIETY,INSOMNIA, DEPRESSION) - Immunization History Td Vaccination: Yes TDAP Vaccination: Yes Immunization Up to Date: Yes - Suicide/Smoking/Psychosocial Hx Smoking Status: Yes Smoking History: Never smoked Years of Tobacco Use: 0 Have you smoked in the past 12 months: No Number of Cigarettes Smoked Daily: 20 If you are a former smoker, when did you quit?: 2013 'Breaking Loose' booklet given: 05/07/14 Hx Alcohol Use: No Drug/Substance Use Hx: No Substance Use Type: None Hx Substance Use Treatment: No ED Treatment Course - LABORATORY CBC & Chemistry Diagram: 04/09/19 01:30 04/09/19 01:30 *DC/Admit/Observation/Transfer Diagnosis at time of Disposition: Urinary tract infection Qualifiers: Urinary tract infection type: acute cystitis Hematuria presence: without hematuria Qualified Code(s): N30.00 - Acute cystitis without hematuria - Discharge Dispostion Disposition: HOME Condition at time of disposition: Good Decision to Admit order: No - Referrals - Patient Instructions Additional Instructions: Take Cipro 1 tablet twice a day as prescribed. Return to the emergency department immediately with ANY new, persistent or worsening symptoms. Continue any medications as previously prescribed by your physician. You should follow up with your primary doctor as soon as possible regarding today's emergency department visit. . Please make sure your doctor reviews the results of your emergency evaluation. Thank you for coming to the Emergency Department today for your care. It was a pleasure to see you today. Please note that your evaluation is INCOMPLETE until you follow-up with your doctor. - Post Discharge Activity
[2019-04-09 00:46] VITALS: BMI 21.4
[2019-04-09 02:29] LABS: BASO % 0.5 % (0-2.0); EOS % 0.1 % (0-4.5); HEMATOCRIT 39.3 % (32.4-45.2); HEMOGLOBIN 13.1 GM/dL (10.7-15.3); LYMPH % 9.3 % (8-40); MCH 28.4 pg (25.7-33.7); MCHC 33.3 g/dl (32.0-36.0); MEAN CELL VOLUME 85.3 fl (80-96); MEAN PLT VOLUME 8.6 fl (7.5-11.1); MONO % 8.2 % (3.8-10.2); NEUT % 81.9 % (42.8-82.8); PLATELET COUNT 307 K/MM3 (134-434); RBC 4.61 M/mm3 (3.60-5.2); RDW 12.8 % (11.6-15.6); WHITE BLOOD COUNT 7.3 K/mm3 (4.0-10.0)
[2019-04-09 02:33] LABS: EPI CELLS 1.1 /HPF (0-5/HPF); URINE APPEARANCE TURBID; URINE BACTERIA 4395.6 /hpf (NEGATIVE); URINE BILIRUBIN NEGATIVE (NEGATIVE); URINE CASTS 12 /lpf (0-8); URINE COLOR YELLOW; URINE GLUCOSE (UA) NEGATIVE (NEGATIVE); URINE KETONE 1+ (NEGATIVE); URINE LEUK ESTERASE 3+ (NEGATIVE); URINE NITRITE NEGATIVE (NEGATIVE); URINE PROTEIN 1+ (NEGATIVE); URINE RBC 11 /hpf (0-4); URINE WBC 349 /hpf (0-5)
[2019-04-09 02:44] LABS: INR 1.13 (0.83-1.09); PROTHROMBIN TIME (PATIENT) 13.4 SEC (9.7-13.0)
[2019-04-09 02:47] LABS: ACTIVATED PTT 29.8 SECONDS (25.2-36.5)
[2019-04-09 03:13] LABS: ALBUMIN 3.4 g/dl (3.4-5.0); BILIRUBIN,TOTAL 0.6 mg/dL (0.2-1); CALCIUM 8.9 mg/dL (8.5-10.1); CREATININE 0.8 mg/dL (0.55-1.3); POTASSIUM 4.3 mmol/L (3.5-5.1); TOT PROT 6.8 g/dl (6.4-8.2)
[2019-04-09] MEDS ORDERED: CEFTRIAXONE 1,000 MG in DEXTROSE 5%-WATER - 50 ML IVPB STA (03:25)
[2019-04-09] MEDS ORDERED: cefTRIAXone SODIUM 1 GM VIAL ONE (03:26)
[2019-04-09] MEDS ORDERED: ACETAMINOPHEN 1000 MG/100 ML VIAL (NON FORMULARY) IVPB ONE (03:41)
[2019-04-09] MEDS ORDERED: ACETAMINOPHEN INJECTION 100 ML IVPB ONE (03:43)
[2019-04-09 04:10] VITALS: BP 117/73; PULSE 90; TEMP 99
--- NOTE | 2019-04-09 14:30 | EKG ---
Test Reason : Blood Pressure : / mmHG Vent. Rate : 100 BPM Atrial Rate : 100 BPM P-R Int : 162 ms QRS Dur : 062 ms QT Int : 346 ms P-R-T Axes : 076 035 059 degrees QTc Int : 446 ms NORMAL SINUS RHYTHM LOW VOLTAGE QRS CANNOT RULE OUT ANTEROSEPTAL INFARCT (CITED ON OR BEFORE 29-NOV-2017) ABNORMAL ECG WHEN COMPARED WITH ECG OF 23-JAN-2019 18:01, MINIMAL CRITERIA FOR INFERIOR INFARCT ARE NO LONGER PRESENT QUESTIONABLE CHANGE IN INITIAL FORCES OF SEPTAL LEADS Confirmed by OMER OLIVA MD ([id number]) on 04/09/2019 2:30:01 PM Referred By: MD IBRAHIM Confirmed By:OMER OLIVA MD
== END 2019-04-09 04:12 ==
LOC: FER 00:28
DX: N30.00 Acute cystitis without hematuria (principal); Z87.891 Personal history of nicotine dependence; F41.8 Other specified anxiety disorders; F03.90 Unspecified dementia, unspecified severity, without behavioral disturbance, psychotic disturbance, mood disturbance, and anxiety
CPT/HCPCS: 36415; 71045-TC-FY; 80053; 81003; 83605; 84484; 85025; 85610; 85730; 87040; 87086; 87186; 93005; 99284-25; J0131

== ENCOUNTER 2019-04-27 14:59 | Emergency (ER) | payer OTHER, BC | END 2019-04-27 18:03 | disposition home or self-care (01) | LOC: FER 14:59 ==

== ENCOUNTER 2019-06-08 00:27 | Inpatient (IN) | payer OTHER, BC ==
[2019-06-08] MEDS ORDERED: ACETAMINOPHEN 650 MG SUPP.RECT ONE (00:46)
--- NOTE | 2019-06-08 01:05 | PDOC ---
History of Present Illness - General Stated Complaint: FEVER Time Seen by Provider: 06/08/19 00:47 History Source: Unavil. due to pt. cond. Exam Limitations: Dementia - History of Present Illness Initial Comments: 06/08/19 02:56 Referred from [place] for flushing and low grade fever x 1 episode earlier today Timing/Duration: 1-3 hours Severity: mild Modifying Factors: worse with: eating, immobilization Associated Symptoms: reports: cough, fever/chills. denies: nausea/vomiting, rash Past History - Past Medical History Allergies/Adverse Reactions: Allergies Allergy/AdvReac Type Severity Reaction Status Date / Time lactose AdvReac Verified 06/08/19 01:48 Home Medications: Ambulatory Orders Atropine 1% Ophth. Solution - 1 drop PO TID 06/08/19 Calcium Carb/D3/Magnesium/Zinc [[place] Mag Zinc + D Tablet] 1 each PO DAILY Citalopram Hydrobromide [Citalopram HBr] 40 mg PO DAILY 06/08/19 Clonazepam 0.5 mg PO TID 06/08/19 Glycopyrrolate 1 mg PO BID 06/08/19 Tetrabenazine [Xenazine] 25 mg PO TID 06/08/19 Vitamin B Complex 1 each PO DAILY 06/08/19 Zolpidem Tartrate [Ambien] 10 mg PO HS 06/08/19 COPD: No Dementia: Yes Psychiatric Problems: Yes (ANXIETY,INSOMNIA, DEPRESSION) - Immunization History Td Vaccination: Yes TDAP Vaccination: Yes Immunization Up to Date: Yes - Suicide/Smoking/Psychosocial Hx Smoking Status: Yes Smoking History: Never smoked Years of Tobacco Use: 0 Have you smoked in the past 12 months: No Number of Cigarettes Smoked Daily: 20 If you are a former smoker, when did you quit?: 2013 'Breaking Loose' booklet given: 05/07/14 Hx Alcohol Use: No Drug/Substance Use Hx: No Substance Use Type: None Hx Substance Use Treatment: No Review of Systems - Review of Systems Is the patient limited Citizen [place] proficient: Yes *Physical Exam - Physical Exam General Appearance: Yes: Nourished, Appropriately Dressed. No: Apparent Distress, Mild Distress HEENT: positive: Pharynx Normal, Scleral Icterus (R). negative: Tonsillar Exudate Neck: negative: Lymphadenopathy (R), Lymphadenopathy (L) Respiratory/Chest: positive: Lungs Clear Cardiovascular: positive: Regular Rhythm Gastrointestinal/Abdominal: negative: Tender, Distended Lymphatic: negative: Adenopathy Musculoskeletal: positive: Normal Inspection Extremity: positive: Normal Capillary Refill Integumentary: positive: Normal Color ED Treatment Course - LABORATORY CBC & Chemistry Diagram: 06/08/19 01:24 06/08/19 01:24 - RADIOLOGY Radiology Studies Ordered: Category Date Time Status CHEST X-RAY PORTABLE* [RAD] Stat Radiology 06/08/19 00:38 Ordered Medical Decision Making - Medical Decision Making 06/08/19 02:58 CXR--linda, as read by me, referred to radiology for definitive read EKG--Sinus at 82, nl axis, nl intervals, no ischemic findings a/p febrile illness without SIRS and without localizing findings on PE or diagnostic testing Observe with serial vitals, labs, and PE low threshold for abx *DC/Admit/Observation/Transfer Diagnosis at time of Disposition: Febrile illness, acute - Discharge Dispostion Condition at time of disposition: Stable Decision to Admit order: Yes - Referrals - Patient Instructions - Post Discharge Activity
[2019-06-08] MEDS ORDERED: ACETAMINOPHEN 650 MG SUPP.RECT PR ONE (01:09)
[2019-06-08 01:49] LABS: BASO % 0.1 % (0-2.0); EOS % 0.1 % (0-4.5); HEMATOCRIT 39.5 % (32.4-45.2); HEMOGLOBIN 13.5 GM/dL (10.7-15.3); LYMPH % 4.7 % (8-40); MCH 29.3 pg (25.7-33.7); MCHC 34.1 g/dl (32.0-36.0); MEAN CELL VOLUME 85.9 fl (80-96); MEAN PLT VOLUME 7.8 fl (7.5-11.1); MONO % 4.1 % (3.8-10.2); PLATELET COUNT 303 K/MM3 (134-434); RDW 13.2 % (11.6-15.6); WHITE BLOOD COUNT 12.5 K/mm3 (4.0-10.0)
[2019-06-08 02:32] LABS: ALBUMIN 3.6 g/dl (3.4-5.0); CALCIUM 9.4 mg/dL (8.5-10.1); CREATININE 0.9 mg/dL (0.55-1.3); POTASSIUM 3.8 mmol/L (3.5-5.1); TOT PROT 6.9 g/dl (6.4-8.2)
[2019-06-08 03:18] LABS: PLATELET ESTIMATE ADEQUATE
[2019-06-08] MEDS ORDERED: ACETAMINOPHEN 325 MG TABLET (FP) PO PRN (03:30)
[2019-06-08 04:39] VITALS: BMI 20.3
--- NOTE | 2019-06-08 07:10 | HP ---
CHIEF COMPLAINT: PCP: HISTORY OF PRESENT ILLNESS: ER course was notable for: (1) (2) (3) Recent Travel: PAST MEDICAL HISTORY: PAST SURGICAL HISTORY: Social History: Smoking: Alcohol: Drugs: Family History: Allergies lactose Adverse Reaction (Verified 06/08/19 01:48) HOME MEDICATIONS: Home Medications Medication Instructions Recorded Atropine 1% Ophth. Solution - 1 drop PO TID 06/08/19 Calcium Carb/D3/Magnesium/Zinc 1 each PO DAILY 06/08/19 [[place] Mag Zinc + D Tablet] Citalopram Hydrobromide 40 mg PO DAILY 06/08/19 [Citalopram HBr] Clonazepam 0.5 mg PO TID 06/08/19 Glycopyrrolate 1 mg PO BID 06/08/19 Tetrabenazine [Xenazine] 25 mg PO TID 06/08/19 Vitamin B Complex 1 each PO DAILY 06/08/19 Zolpidem Tartrate [Ambien] 10 mg PO HS 06/08/19 REVIEW OF SYSTEMS CONSTITUTIONAL: Absent: fever, chills, diaphoresis, generalized weakness, malaise, loss of appetite, weight change HEENT: Absent: rhinorrhea, nasal congestion, throat pain, throat swelling, difficulty swallowing, mouth swelling, ear pain, eye pain, visual changes CARDIOVASCULAR: Absent: chest pain, syncope, palpitations, irregular heart rate, lightheadedness , peripheral edema RESPIRATORY: Absent: cough, shortness of breath, dyspnea with exertion, orthopnea, wheezing, stridor, hemoptysis GASTROINTESTINAL: Absent: abdominal pain, abdominal distension, nausea, vomiting, diarrhea, constipation, melena, hematochezia GENITOURINARY: Absent: dysuria, frequency, urgency, hesitancy, hematuria, flank pain, genital pain MUSCULOSKELETAL: Absent: myalgia, arthralgia, joint swelling, back pain, neck pain SKIN: Absent: rash, itching, pallor HEMATOLOGIC/IMMUNOLOGIC: Absent: easy bleeding, easy bruising, lymphadenopathy, frequent infections ENDOCRINE: Absent: unexplained weight gain, unexplained weight loss, heat intolerance, cold intolerance NEUROLOGIC: Absent: headache, focal weakness or paresthesias, dizziness, unsteady gait, seizure, mental status changes, bladder or bowel incontinence PSYCHIATRIC: Absent: anxiety, depression, suicidal or homicidal ideation, hallucinations. PHYSICAL EXAMINATION Vital Signs - 24 hr 06/08/19 06/08/19 06/08/19 01:24 02:52 04:01 Temperature 102.1 F H 100.2 F H 98.0 F Pulse Rate 87 69 Respiratory 14 17 Rate Blood Pressure 134/70 108/59 L O2 Sat by Pulse 95 Oximetry (%) 06/08/19 06:51 Temperature 98.0 F Pulse Rate 47 L Respiratory 17 Rate Blood Pressure 120/68 O2 Sat by Pulse 94 L Oximetry (%) GENERAL: Awake, alert, and fully oriented, in no acute distress. HEAD: Normal with no signs of trauma. EYES: Pupils equal, round and reactive to light, extraocular movements intact, sclera anicteric, conjunctiva clear. No lid lag. EARS, NOSE, THROAT: Ears normal, nares patent, oropharynx clear without exudates. Moist mucous membranes. NECK: Normal range of motion, supple without lymphadenopathy, JVD, or masses. LUNGS: Breath sounds equal, clear to auscultation bilaterally. No wheezes, and no crackles. No accessory muscle use. HEART: Regular rate and rhythm, normal S1 and S2 without murmur, rub or gallop. ABDOMEN: Soft, nontender, not distended, normoactive bowel sounds, no guarding, no rebound, no masses. No hepatomegaly or splenomegaly. MUSCULOSKELETAL: Normal range of motion at all joints. No bony deformities or tenderness. No CVA tenderness. UPPER EXTREMITIES: 2+ pulses, warm, well-perfused. No cyanosis. No clubbing. No peripheral edema. LOWER EXTREMITIES: 2+ pulses, warm, well-perfused. No calf tenderness. No peripheral edema. NEUROLOGICAL: Cranial nerves II-XII intact. Normal speech. Normal gait. PSYCHIATRIC: Cooperative. Good eye contact. Appropriate mood and affect. SKIN: Warm, dry, normal turgor, no rashes or lesions noted, normal capillary refill. Laboratory Results - last 24 hr 06/08/19 06/08/19 06/08/19 01:10 01:24 01:24 WBC 12.5 H RBC 4.60 Hgb 13.5 Hct 39.5 MCV 85.9 MCH 29.3 MCHC 34.1 RDW 13.2 Plt Count 303 MPV 7.8 Absolute Neuts (auto) 11.4 H Total Counted 100 Neutrophils % 91.0 H Neutrophils % (Manual) 91.0 H Band Neutrophils % 4.0 Lymphocytes % 4.7 L D Lymphocytes % (Manual) 3.0 L Monocytes % 4.1 Monocytes % (Manual) 2 L Eosinophils % 0.1 Basophils % 0.1 Nucleated RBC % 0 Platelet Estimate Adequate Platelet Comment No clotting detected Sodium Potassium Chloride Carbon Dioxide Anion Gap BUN Creatinine Est GFR (CKD-EPI)AfAm Est GFR (CKD-EPI)NonAf Random Glucose Lactic Acid Calcium Total Bilirubin AST ALT Alkaline Phosphatase Troponin I < 0.02 Total Protein Albumin Urine Color Yellow Urine Appearance Clear Urine pH 6.6 Urine Protein N Urine Glucose (UA) Negative Urine Ketones Negative Urine Blood Trace Urine Nitrite Negative Urine Bilirubin Negative Urine Urobilinogen 0.2 Ur Leukocyte Esterase Negative 06/08/19 06/08/19 06/08/19 01:24 01:24 01:24 WBC RBC Hgb Hct MCV MCH MCHC RDW Plt Count MPV Absolute Neuts (auto) Total Counted Neutrophils % Neutrophils % (Manual) Band Neutrophils % Lymphocytes % Lymphocytes % (Manual) Monocytes % Monocytes % (Manual) Eosinophils % Basophils % Nucleated RBC % Platelet Estimate Platelet Comment Sodium 142 Potassium 3.8 Chloride 107 Carbon Dioxide 30 Anion Gap 5 L BUN 23.0 H Creatinine 0.9 Est GFR (CKD-EPI)AfAm 76.68 Est GFR (CKD-EPI)NonAf 66.16 Random Glucose 111 H Lactic Acid 1.4 Calcium 9.4 Total Bilirubin 1.0 AST 28 ALT 13 Alkaline Phosphatase 84 Troponin I Cancelled Total Protein 6.9 Albumin 3.6 Urine Color Urine Appearance Urine pH Urine Protein Urine Glucose (UA) Urine Ketones Urine Blood Urine Nitrite Urine Bilirubin Urine Urobilinogen Ur Leukocyte Esterase ASSESSMENT/PLAN:
--- NOTE | 2019-06-08 10:21 | HP ---
CHIEF COMPLAINT: Fever PCP: HISTORY OF PRESENT ILLNESS: This is a 69-year-old female with PMH significant for Springs's disease, Anxiety, depression. Patient presented from an assisted from an Assisted Living facility to the ED for evaluation of fever. Pt unable to give a history. Report is based on information from facility and daughter. 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 Daughter also states coughing while eating. ER course was notable for: (1) Tm 102.1 (2) WBC 12.5 (3) CXR- unremarkable (4) UA- Negative Recent Travel: PAST MEDICAL HISTORY: Steve's Disease, Anxiety, Depression PAST SURGICAL HISTORY: None Social History: , has two children. Lives in assisted living with private aide. Wheelchair-bound. Smoking: Former smoker Alcohol: None Drugs: None Family History: Brother and father (Springs's) Allergies lactose Adverse Reaction (Verified 06/08/19 01:48) HOME MEDICATIONS: Home Medications Medication Instructions Recorded Atropine 1% Ophth. Solution - 1 drop PO TID 06/08/19 Calcium Carb/D3/Magnesium/Zinc 1 each PO DAILY 06/08/19 [Bethel Mag Zinc + D Tablet] Citalopram Hydrobromide 40 mg PO DAILY 06/08/19 [Citalopram HBr] Clonazepam 0.5 mg PO TID 06/08/19 Glycopyrrolate 1 mg PO BID 06/08/19 Tetrabenazine [Xenazine] 25 mg PO TID 06/08/19 Vitamin B Complex 1 each PO DAILY 06/08/19 Zolpidem Tartrate [Ambien] 10 mg PO HS 06/08/19 REVIEW OF SYSTEMS-unable to obtain PHYSICAL EXAMINATION Vital Signs - 24 hr 06/08/19 06/08/19 06/08/19 01:24 02:52 04:01 Temperature 102.1 F H 100.2 F H 98.0 F Pulse Rate 87 69 Respiratory 14 17 Rate Blood Pressure 134/70 108/59 L O2 Sat by Pulse 95 Oximetry (%) 06/08/19 06/08/19 06/08/19 06:51 09:52 10:00 Temperature 98.0 F 97.5 F L 98.7 F Pulse Rate 47 L 77 Respiratory 17 18 Rate Blood Pressure 120/68 111/97 O2 Sat by Pulse 94 L 95 Oximetry (%) GENERAL: Awake, arousable- at baseline, in no acute distress. HEAD: Normal with no signs of trauma. LUNGS: Breath sounds equal, clear to auscultation bilaterally. No wheezes, and no crackles. No accessory muscle use. HEART: Regular rate and rhythm, normal S1 and S2 ABDOMEN: Soft, nontender, not distended, normoactive bowel sounds, no guarding, no rebound, no masses. MUSCULOSKELETAL: Spastic motion at all joints. No bony deformities or tenderness. No CVA tenderness. UPPER EXTREMITIES: 2+ pulses, warm, well-perfused. No cyanosis. No clubbing. No peripheral edema. LOWER EXTREMITIES: 2+ pulses, warm, well-perfused. No calf tenderness. No peripheral edema. NEUROLOGICAL: Non verbal speech- at baseline. Gait not observed. PSYCHIATRIC: Cooperative. Good eye contact. Appropriate mood and affect. SKIN: Warm, dry, normal turgor, no rashes or lesions noted, normal capillary refill. Laboratory Results - last 24 hr 06/08/19 06/08/19 06/08/19 01:10 01:24 01:24 WBC 12.5 H RBC 4.60 Hgb 13.5 Hct 39.5 MCV 85.9 MCH 29.3 MCHC 34.1 RDW 13.2 Plt Count 303 MPV 7.8 Absolute Neuts (auto) 11.4 H Total Counted 100 Neutrophils % 91.0 H Neutrophils % (Manual) 91.0 H Band Neutrophils % 4.0 Lymphocytes % 4.7 L D Lymphocytes % (Manual) 3.0 L Monocytes % 4.1 Monocytes % (Manual) 2 L Eosinophils % 0.1 Basophils % 0.1 Nucleated RBC % 0 Platelet Estimate Adequate Platelet Comment No clotting detected Sodium Potassium Chloride Carbon Dioxide Anion Gap BUN Creatinine Est GFR (CKD-EPI)AfAm Est GFR (CKD-EPI)NonAf Random Glucose Lactic Acid Calcium Total Bilirubin AST ALT Alkaline Phosphatase Creatine Kinase Troponin I < 0.02 Total Protein Albumin Urine Color Yellow Urine Appearance Clear Urine pH 6.6 Urine Protein N Urine Glucose (UA) Negative Urine Ketones Negative Urine Blood Trace Urine Nitrite Negative Urine Bilirubin Negative Urine Urobilinogen 0.2 Ur Leukocyte Esterase Negative 06/08/19 06/08/19 06/08/19 01:24 01:24 01:24 WBC RBC Hgb Hct MCV MCH MCHC RDW Plt Count MPV Absolute Neuts (auto) Total Counted Neutrophils % Neutrophils % (Manual) Band Neutrophils % Lymphocytes % Lymphocytes % (Manual) Monocytes % Monocytes % (Manual) Eosinophils % Basophils % Nucleated RBC % Platelet Estimate Platelet Comment Sodium 142 Potassium 3.8 Chloride 107 Carbon Dioxide 30 Anion Gap 5 L BUN 23.0 H Creatinine 0.9 Est GFR (CKD-EPI)AfAm 76.68 Est GFR (CKD-EPI)NonAf 66.16 Random Glucose 111 H Lactic Acid 1.4 Calcium 9.4 Total Bilirubin 1.0 AST 28 ALT 13 Alkaline Phosphatase 84 Creatine Kinase Troponin I Cancelled Total Protein 6.9 Albumin 3.6 Urine Color Urine Appearance Urine pH Urine Protein Urine Glucose (UA) Urine Ketones Urine Blood Urine Nitrite Urine Bilirubin Urine Urobilinogen Ur Leukocyte Esterase 06/08/19 08:18 WBC RBC Hgb Hct MCV MCH MCHC RDW Plt Count MPV Absolute Neuts (auto) Total Counted Neutrophils % Neutrophils % (Manual) Band Neutrophils % Lymphocytes % Lymphocytes % (Manual) Monocytes % Monocytes % (Manual) Eosinophils % Basophils % Nucleated RBC % Platelet Estimate Platelet Comment Sodium Potassium Chloride Carbon Dioxide Anion Gap BUN Creatinine Est GFR (CKD-EPI)AfAm Est GFR (CKD-EPI)NonAf Random Glucose Lactic Acid Calcium Total Bilirubin AST ALT Alkaline Phosphatase Creatine Kinase 91 Troponin I 0.01 Total Protein Albumin Urine Color Urine Appearance Urine pH Urine Protein Urine Glucose (UA) Urine Ketones Urine Blood Urine Nitrite Urine Bilirubin Urine Urobilinogen Ur Leukocyte Esterase ASSESSMENT/PLAN: This is a 69-year-old female with PMH significant for [place]'s disease, Anxiety, depression. Admitted for Fever and Leukocytosis. Fever with Leukocytosis of Uncertain Etiology Tm 102.1 upon ER Admission WBC 12.5 on admitt CXR Unremarkable Chest CT unable to obtain due to Chorea (Springs's) UA-Negative Concern for aspiration pneumonia, in the setting of Chorea, 13 pound weighloss over the last month and increased coughing. 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 Macdonald, Neurologist ) has increased medication. Pt has appointment tomorrow with Neurologist Continue-Tetrabenazine [Xenazine] Continue- Glycopyrrolate Anxiety/Depression Continue Citalopram, Ambien, and Clonazapam FEN Fluids- 0.9% NS 50 ml/hr for 24 hours only Electr- repleat as indicated N-Dysphagia, Puree pudding thivk liquids DVT Prophylaxis subq Heparin Dispo Cont to require inpatient care full code Son and daughter are health care proxy -Ju Mcintyre [phone] -Dimitri Mcintyre [phone] Visit type - Emergency Visit Emergency Visit: Yes ED Registration Date: 06/08/19 Care time: The patient presented to the Emergency Department on the above date and was hospitalized for further evaluation of their emergent condition. - New Patient This patient is new to me today: Yes Date on this admission: 06/08/19 - Critical Care Critical Care patient: No
[2019-06-08] MEDS ORDERED: PATIENT'S OWN MEDICATION (NON-FORMULARY) (Vitamin B Complex [Vitamin B Complex] 1 EACH) PO SCH (11:00)
[2019-06-08] MEDS ORDERED: PATIENT'S OWN MEDICATION (NON-FORMULARY) (Calcium Carb/D3/Magnesium/Zinc [Cal Mag Zinc-D T PO SCH (11:00)
[2019-06-08] MEDS ORDERED: ZOLPIDEM TARTRATE 5 MG TABLET PO PRN (11:02)
[2019-06-08] MEDS: HEPARIN NA (PORCINE) 5,000 UNITS/ML 1ML VIAL SQ SCH ×2 (11:16→21:44)
[2019-06-08] MEDS ORDERED: AZITHROMYCIN IVPB 500 MG/250 ML BAG IVPB ONE (12:00)
[2019-06-08] MEDS ORDERED: PT OWN MED DRAWER 7, Y5N ONE ×4 (12:29→21:54)
[2019-06-08] MEDS: CITALOPRAM HYDROBROMIDE 20 MG TABLET (FP) PO SCH (12:43)
[2019-06-08] MEDS: GLYCOPYRROLATE 1 MG TABLET PO SCH ×2 (12:44→21:44)
[2019-06-08] MEDS: CEFTRIAXONE 1 G/50 ML PREMIX 50 ML IVPB SCH (12:44)
[2019-06-08] MEDS ORDERED: SODIUM CHLORIDE 1,000 ML IV SCH (13:30)
[2019-06-08] MEDS: TETRABENAZINE 25 MG PO SCH ×2 (14:00→21:44)
[2019-06-08] MEDS: ATROPINE SO4 1% OPHTH SOLN 5 ML BOTTLE NR SCH ×2 (14:30→21:43)
[2019-06-08] MEDS: clonazePAM 0.5 MG TABLET PO SCH ×2 (16:14→21:44)
[2019-06-08] MEDS ORDERED: SODIUM CHLORIDE 250 ML IV STA (17:37)
[2019-06-08] MEDS ORDERED: PATIENT'S OWN MEDICATION (NON-FORMULARY) (Zolpidem Tartrate [Ambien] 10 MG) PO SCH (22:00)
[2019-06-09] MEDS ORDERED: PT OWN MED DRAWER 7, Y5N ONE ×4 (05:42→21:17)
[2019-06-09] MEDS: ATROPINE SO4 1% OPHTH SOLN 5 ML BOTTLE NR SCH ×3 (05:56→21:30)
[2019-06-09] MEDS: TETRABENAZINE 25 MG PO SCH ×3 (05:56→21:31)
[2019-06-09] MEDS: clonazePAM 0.5 MG TABLET PO SCH ×3 (05:57→21:31)
[2019-06-09 08:07] LABS: INR 1.23 (0.82-1.09); PROTHROMBIN TIME (PATIENT) 13.7 SEC (10.2-13.0)
[2019-06-09 08:09] LABS: BASO % 0.4 % (0-2.0); EOS % 1.4 % (0-4.5); HEMATOCRIT 34.5 % (32.4-45.2); HEMOGLOBIN 11.9 GM/dl (10.7-15.3); LYMPH % 14.6 % (8-40); MCH 29.9 pg (25.7-33.7); MCHC 34.6 g/dl (32.0-36.0); MEAN CELL VOLUME 86.4 fl (80-96); MEAN PLT VOLUME 8.1 fl (7.5-11.1); MONO % 3.5 % (3.8-10.2); NEUT % 80.1 % (42.8-82.8); PLATELET COUNT 332 K/MM3 (134-434); RBC 3.99 M/mm3 (3.60-5.2); RDW 12.2 % (11.6-15.6); WHITE BLOOD COUNT 7.6 K/mm3 (4.0-10.8)
[2019-06-09 08:11] LABS: ALBUMIN 3.2 g/dl (3.4-5.0); BILIRUBIN,TOTAL 0.8 mg/dl (0.2-1); CALCIUM 8.7 mg/dl (8.5-10); CREATININE 0.8 mg/dl (0.55-1.3); MAGNESIUM 2.1 mg/dL (1.8-2.4); POTASSIUM 4.1 mmol/L (3.5-5.1)
[2019-06-09] MEDS: CEFTRIAXONE 1 G/50 ML PREMIX 50 ML IVPB SCH (10:33)
[2019-06-09] MEDS: GLYCOPYRROLATE 1 MG TABLET PO SCH ×2 (10:35→21:31)
[2019-06-09] MEDS: AZITHROMYCIN IVPB 250 MG in DEXTROSE 5%-WATER - 250 ML IVPB SCH (10:35)
[2019-06-09] MEDS: HEPARIN NA (PORCINE) 5,000 UNITS/ML 1ML VIAL SQ SCH ×2 (10:35→21:31)
[2019-06-09] MEDS: CITALOPRAM HYDROBROMIDE 20 MG TABLET (FP) PO SCH (10:35)
--- NOTE | 2019-06-09 12:00 | PN ---
Physical Exam: SUBJECTIVE: Patient seen and examined at bedside. OBJECTIVE: Vital Signs Period Temp Pulse Resp BP Sys/Wills Pulse Ox Last 24 Hr 98.4 F-99.8 F 54-97 18-19 111-137/58-77 94-96 GENERAL/NEURO: The patient is awake, alert. Tracks with eyes. Non-verbal vocalization. Involuntary movements arms, legs, neck, face LUNGS: Poor inspiratory effort, difficult to auscultate HEART: Regular rate and rhythm, S1, S2 ABDOMEN: Soft, nontender, nondistended EXTREMITIES: 2+ pulses, warm, well-perfused, no edema. SKIN: Warm, dry, normal turgor, no rashes or lesions noted Laboratory Results - last 24 hr 06/09/19 06/09/19 06/09/19 06:57 06:57 06:57 WBC 7.6 RBC 3.99 Hgb 11.9 Hct 34.5 MCV 86.4 MCH 29.9 MCHC 34.6 RDW 12.2 Plt Count 332 MPV 8.1 Absolute Neuts (auto) 6.1 Neutrophils % 80.1 Lymphocytes % 14.6 Monocytes % 3.5 L Eosinophils % 1.4 Basophils % 0.4 PT with INR 13.7 H INR 1.23 H Sodium 138 Potassium 4.1 Chloride 106 Carbon Dioxide 27 Anion Gap 5 L BUN 20.0 H Creatinine 0.8 Est GFR (CKD-EPI)AfAm 88.42 Est GFR (CKD-EPI)NonAf 76.29 Random Glucose 76 Calcium 8.7 Magnesium 2.1 Total Bilirubin 0.8 AST 20 ALT 11 L Alkaline Phosphatase 61 Total Protein 6.0 L Albumin 3.2 L Influenza A (Rapid) Influenza B (Rapid) 06/09/19 08:50 WBC RBC Hgb Hct MCV MCH MCHC RDW Plt Count MPV Absolute Neuts (auto) Neutrophils % Lymphocytes % Monocytes % Eosinophils % Basophils % PT with INR INR Sodium Potassium Chloride Carbon Dioxide Anion Gap BUN Creatinine Est GFR (CKD-EPI)AfAm Est GFR (CKD-EPI)NonAf Random Glucose Calcium Magnesium Total Bilirubin AST ALT Alkaline Phosphatase Total Protein Albumin Influenza A (Rapid) Negative Influenza B (Rapid) Negative Active Medications Generic Name Dose Route Start Last Admin Trade Name Freq PRN Reason Stop Dose Admin Acetaminophen 650 mg 06/08/19 03:30 Tylenol - PO Q6H PRN FEVER Atropine Sulfate 1 drop 06/08/19 14:00 06/09/19 05:56 Atropine 1% Ophth. Solution - NR 1 drop TID SAVANNAH Administration Citalopram Hydrobromide 40 mg 06/08/19 11:00 06/08/19 12:43 Celexa - PO 40 mg DAILY SAVANNAH Administration Clonazepam 0.5 mg 06/08/19 14:00 06/09/19 05:57 Klonopin - PO 0.5 mg TID SAVANNAH Administration Glycopyrrolate 1 mg 06/08/19 11:00 06/08/19 21:44 Robinul - PO 1 mg BID SAVANNAH Administration Heparin Sodium (Porcine) 5,000 unit 06/08/19 10:00 06/08/19 21:44 Heparin - SQ 5,000 unit BID SAVANNAH Administration Ceftriaxone Sodium 50 mls @ 100 mls/hr 06/08/19 13:00 06/08/19 12:44 Ceftriaxone 1 Gm-D5w Bag IVPB 100 mls/hr DAILY SAVANNAH Administration Protocol Azithromycin 250 mg/ Dextrose 250 mls @ 250 mls/hr 06/09/19 10:00 IVPB 06/12/19 10:59 DAILY SAVANNAH Sodium Chloride 1,000 mls @ 50 mls/hr 06/08/19 13:30 06/08/19 13:30 Normal Saline - IV 06/09/19 13:17 50 mls/hr ASDIR SAVANNAH Administration Non-Formulary Medication 25 mg 06/08/19 14:00 06/09/19 05:56 Tetrabenazine [Xenazine] PO 25 mg TID SAVANNAH Administration Zolpidem Tartrate 5 mg 06/08/19 11:02 Ambien - PO HS PRN INS[facility]IA [phone] ASSESSMENT/PLAN 69-year-old female with PMH significant for [place]'s disease, anxiety, and depression. Admitted with fever and leukocytosis. Fever/leukocytosis of uncertain etiology --T102.1, WBC 12.5 on admission --afebrile 24 hours and leukocytosis has resolved --initial CXR showed possible early RENETTA infiltrate, but repeat CXR today shows those markings have cleared, no sign of infiltrate; not able to get CT chest due to chorea --was started ceftriaxone and azithromycin for a presumed aspiration pneumonia as patient is high risk; will continue to treat empirically and discharge tomorrow on PO antibiotics to complete the course Huntingtons Disease --per daughter, symptoms have worsened over past month and meds have been titrated --follows with Dr. Hendricks, neurologist ([phone]) --continue tetrabenazine and glycopyrrolate Anxiety/Depression --continue citalopram, ambien, clonazepam Functional quadraplegia --unable to feed, toilet, position self due to chorea FEN Fluids: NS@50mL/hr due to limited food intake Electrolytes: replete as indicated Nutrition: dysphagia pureed, pudding thick DVT prophylaxis: subq heparin Dispo: continues to require inpatient care. Plan to discharge tomorrow on PO antibiotics. Full code. Son and daughter are health care proxy -Ju Mcintyre [phone] -Dimitri Mcintyre [phone] Visit type - Emergency Visit Emergency Visit: Yes ED Registration Date: 06/08/19 Care time: The patient presented to the Emergency Department on the above date and was hospitalized for further evaluation of their emergent condition. - New Patient This patient is new to me today: Yes Date on this admission: 06/09/19 - Critical Care Critical Care patient: No
[2019-06-09] MEDS ORDERED: SODIUM CHLORIDE 1,000 ML IV SCH (12:30)
--- NOTE | 2019-06-09 16:34 | EKG ---
Test Reason : Blood Pressure : / mmHG Vent. Rate : 076 BPM Atrial Rate : 076 BPM P-R Int : 170 ms QRS Dur : 070 ms QT Int : 406 ms P-R-T Axes : 068 013 039 degrees QTc Int : 456 ms NORMAL SINUS RHYTHM LOW VOLTAGE QRS CANNOT RULE OUT ANTERIOR INFARCT (CITED ON OR BEFORE 29-NOV-2017) ABNORMAL ECG WHEN COMPARED WITH ECG OF 08-JUN-2019 01:21, NO SIGNIFICANT CHANGE WAS FOUND Confirmed by MD Germania, Keenan ([id number]) on 06/09/2019 4:34:34 PM Referred By: Andrea VARELA Confirmed By:Keenan Solo MD
[2019-06-10] MEDS ORDERED: PT OWN MED DRAWER 7, Y5N ONE ×2 (05:49→06:04)
[2019-06-10] MEDS: clonazePAM 0.5 MG TABLET PO SCH (06:54)
[2019-06-10] MEDS: TETRABENAZINE 25 MG PO SCH (06:54)
[2019-06-10] MEDS: ATROPINE SO4 1% OPHTH SOLN 5 ML BOTTLE NR SCH (06:54)
--- NOTE | 2019-06-10 09:03 | DS ---
Physical Exam: SUBJECTIVE: Patient seen and examined at bedside. OBJECTIVE: Vital Signs Period Temp Pulse Resp BP Sys/Wills Pulse Ox Last 24 Hr 98.2 F-99.2 F 70-89 16-20 107-123/55-74 94-100 PHYSICAL EXAM GENERAL/NEURO: The patient is awake, alert. Tracks with eyes. Non-verbal vocalization. Involuntary movements arms, legs, neck, face LUNGS: Poor inspiratory effort, difficult to auscultate HEART: Regular rate and rhythm, S1, S2 ABDOMEN: Soft, nontender, nondistended EXTREMITIES: 2+ pulses, warm, well-perfused, no edema. SKIN: Warm, dry, normal turgor, no rashes or lesions noted LABS CBCD WBC 7.6 K/mm3 (4.0-10.8) 06/09/19 06:57 RBC 3.99 M/mm3 (3.60-5.2) 06/09/19 06:57 Hgb 11.9 GM/dl (10.7-15.3) 06/09/19 06:57 Hct 34.5 % (32.4-45.2) 06/09/19 06:57 MCV 86.4 fl (80-96) 06/09/19 06:57 MCHC 34.6 g/dl (32.0-36.0) 06/09/19 06:57 RDW 12.2 % (11.6-15.6) 06/09/19 06:57 Plt Count 332 K/MM3 (134-434) 06/09/19 06:57 MPV 8.1 fl (7.5-11.1) 06/09/19 06:57 CMP Sodium 138 mmol/L (136-145) 06/09/19 06:57 Potassium 4.1 mmol/L (3.5-5.1) 06/09/19 06:57 Chloride 106 mmol/L (98-107) 06/09/19 06:57 Carbon Dioxide 27 mmol/L (21-32) 06/09/19 06:57 Anion Gap 5 MMOL/L (8-16) L 06/09/19 06:57 BUN 20.0 mg/dl (7-18) H 06/09/19 06:57 Creatinine 0.8 mg/dl (0.55-1.3) 06/09/19 06:57 Calcium 8.7 mg/dl (8.5-10) 06/09/19 06:57 Total Bilirubin 0.8 mg/dl (0.2-1) 06/09/19 06:57 AST 20 U/L (15-37) 06/09/19 06:57 ALT 11 U/L (13-61) L 06/09/19 06:57 Alkaline Phosphatase 61 U/L (45-117) 06/09/19 06:57 Total Protein 6.0 g/dl (6.4-8.2) L 06/09/19 06:57 Albumin 3.2 g/dl (3.4-5.0) L 06/09/19 06:57 Laboratory Results - last 24 hr 06/09/19 08:50 Influenza A (Rapid) Negative Influenza B (Rapid) Negative HOSPITAL COURSE: Date of Admission:06/08/19 Date of Discharge: 06/10/19 69-year-old female with PMH significant for Steve's disease, anxiety, and depression. Admitted with fever and leukocytosis. Fever/leukocytosis of uncertain etiology --T102.1, WBC 12.5 on admission --afebrile 48 hours and leukocytosis resolved --initial CXR showed possible early RENETTA infiltrate, but repeat CXR today showed the markings had cleared and no sign of infiltrate; not able to get CT chest due to chorea --was started ceftriaxone and azithromycin for a presumed aspiration pneumonia, received 3 days of treatment; discharged off antibiotics Huntingtons Disease --per daughter, symptoms have worsened over past month and meds have been titrated --follows with Dr. Hendricks, neurologist ([phone]) --continued tetrabenazine and glycopyrrolate Anxiety/Depression --continued citalopram, ambien, clonazepam Functional quadraplegia --unable to feed, toilet, position self due to chorea Minutes to complete discharge: 35 Discharge Summary Reason For Visit: FEVER Current Active Problems Febrile illness, acute (Acute) Condition: Stable - Instructions Disposition: HOME - Home Medications Comprehensive Discharge Medication List: Ambulatory Orders Atropine 1% Ophth. Solution - 1 drop PO TID 06/08/19 Calcium Carb/D3/Magnesium/Zinc [[place] Mag Zinc-D Tablet] 1 each PO DAILY 06/08/19 Citalopram Hydrobromide [Citalopram HBr] 40 mg PO DAILY 06/08/19 Clonazepam 0.5 mg PO TID 06/08/19 Glycopyrrolate 1 mg PO BID 06/08/19 Tetrabenazine [Xenazine] 25 mg PO TID 06/08/19 Vitamin B Complex 1 each PO DAILY 06/08/19 Zolpidem Tartrate [Ambien] 10 mg PO HS 06/08/19 This patient is new to me today: No Emergency Visit: Yes ED Registration Date: 06/08/19 Care time: The patient presented to the Emergency Department on the above date and was hospitalized for further evaluation of their emergent condition. Critical Care patient: No - Discharge Referral Referred to [facility] Med P.C.: No
[2019-06-10] MEDS: CEFTRIAXONE 1 G/50 ML PREMIX 50 ML IVPB SCH (09:06)
[2019-06-10] MEDS: CITALOPRAM HYDROBROMIDE 20 MG TABLET (FP) PO SCH (09:08)
[2019-06-10] MEDS: HEPARIN NA (PORCINE) 5,000 UNITS/ML 1ML VIAL SQ SCH (09:09)
[2019-06-10] MEDS: GLYCOPYRROLATE 1 MG TABLET PO SCH (09:12)
[2019-06-10] MEDS: AZITHROMYCIN IVPB 250 MG in DEXTROSE 5%-WATER - 250 ML IVPB SCH (09:23)
[2019-06-10 12:06] VITALS: BP 136/81; PULSE 78; TEMP 97.6
--- NOTE | 2019-06-11 15:23 | EKG ---
Test Reason : Blood Pressure : / mmHG Vent. Rate : 082 BPM Atrial Rate : 082 BPM P-R Int : 158 ms QRS Dur : 074 ms QT Int : 392 ms P-R-T Axes : 069 018 059 degrees QTc Int : 457 ms NORMAL SINUS RHYTHM LOW VOLTAGE QRS CANNOT RULE OUT ANTERIOR INFARCT (CITED ON OR BEFORE 29-NOV-2017) ABNORMAL ECG WHEN COMPARED WITH ECG OF 09-APR-2019 01:54, NO SIGNIFICANT CHANGE WAS FOUND Confirmed by OMER OLIVA MD ([id number]) on 06/11/2019 3:23:05 PM Referred By: MD MANZANO Confirmed By:OMER OLIVA MD
== END 2019-06-10 12:55 | disposition home or self-care (01) | DRG 177 ==
LOC: FER 00:27 → FM/S 02:55 → UNDOADMOB 03:09 → OBSVTOIN 03:37
PROVIDERS: ADMIT Internal Medicine; ATTEND Nurse Practitioner Acute Care
DX: J69.0 Pneumonitis due to inhalation of food and vomit (principal); R53.2 Functional quadriplegia; G10 Huntington's disease; F41.9 Anxiety disorder, unspecified; F32.9 Major depressive disorder, single episode, unspecified; Z99.3 Dependence on wheelchair
CPT/HCPCS: 36415; 71045-TC-FY; 80053; 81003; 82550; 83605; 83735; 84484; 85025; 85610; 87040; 87086; 87804; 93005; 99282-25; G0378; J1644; J7030

== ENCOUNTER 2019-11-13 15:50 | Inpatient (IN) | payer OTHER, BC ==
[2019-11-13] MEDS ORDERED: IBUPROFEN 800 MG/8 ML IJ IVPB ONE ×2 (16:24→16:35)
[2019-11-13] MEDS: SODIUM CHLORIDE 0.9% 1000 ML INFUS.BAG IV SCH (16:39)
[2019-11-13 16:45] LABS: BASO % 1.8 % (0-2.0); EOS % 0.1 % (0-4.5); HEMATOCRIT 34.3 % (32.4-45.2); HEMOGLOBIN 11.6 GM/dl (10.7-15.3); LYMPH % 4.7 % (8-40); MCH 29.6 pg (25.7-33.7); MCHC 33.9 g/dl (32.0-36.0); MEAN CELL VOLUME 87.2 fl (80-96); MEAN PLT VOLUME 8.1 fl (7.5-11.1); NEUT % 87.4 % (42.8-82.8); PLATELET COUNT 310 K/MM3 (134-434); RBC 3.93 M/mm3 (3.60-5.2); RDW 11.7 % (11.6-15.6); WHITE BLOOD COUNT 8.4 K/mm3 (4.0-10.8)
[2019-11-13 16:48] LABS: ALBUMIN 3.3 g/dl (3.4-5.0); BILIRUBIN,TOTAL 0.6 mg/dl (0.2-1); CALCIUM 8.3 mg/dl (8.5-10); CREATININE 0.7 mg/dl (0.55-1.3); POTASSIUM 4.2 mmol/L (3.5-5.1); TOT PROT 6.3 g/dl (6.4-8.2)
[2019-11-13 16:52] LABS: INR 1.29 (0.82-1.09); PROTHROMBIN TIME (PATIENT) 14.4 SEC (10.2-13.0)
--- NOTE | 2019-11-13 16:58 | HP ---
CHIEF COMPLAINT: Fever HISTORY OF PRESENT ILLNESS: 69 year-old female residing at [place] at [place] with PMH significant for [place]'s disease, anxiety, and depression. Brought to ED today for evaluation of fever and cough. Patient is non verbal and cannot provide history. As per the patients aide, the patient developed a non productive cough and fever of 102 orally around 1 PM today. The patient was given tylenol while at the care home. Aide also noted the patient had poor PO intake today. As per EMS, the patient was hypoxic with her O2 saturation at 89% on room air. Aide denies that patient having any diarrhea or vomiting today. ER course was notable for: (1) T102.9, p119 Recent Travel: No PAST MEDICAL HISTORY: PAST SURGICAL HISTORY: Social History: Smoking: Alcohol: Drugs: Allergies lactose Adverse Reaction (Verified 06/08/19 01:48) HOME MEDICATIONS: Home Medications Medication Instructions Recorded Atropine 1% Ophth. Solution - 1 drop PO TID 06/08/19 Calcium Carb/D3/Magnesium/Zinc 1 each PO DAILY 06/08/19 [[place] Mag Zinc-D Tablet] Citalopram Hydrobromide 40 mg PO DAILY 06/08/19 [Citalopram HBr] Clonazepam 0.5 mg PO TID 06/08/19 Glycopyrrolate 1 mg PO BID 06/08/19 Tetrabenazine [Xenazine] 25 mg PO TID 06/08/19 Vitamin B Complex 1 each PO DAILY 06/08/19 Zolpidem Tartrate [Ambien] 10 mg PO HS 06/08/19 Acetaminophen [Tylenol] 650 mg PO PRN PRN 11/13/19 REVIEW OF SYSTEMS: unable to obtain from patient PHYSICAL EXAMINATION Vital Signs - 24 hr 11/13/19 11/13/19 15:51 15:55 Temperature 102.9 F H Pulse Rate 119 H Respiratory 20 Rate Blood Pressure 151/89 O2 Sat by Pulse 89 L 97 Oximetry (%) GENERAL: Awake, alert. Makes eye contact, verbalizes sounds in response to questions but speech unintelligible HEAD: Normal with no signs of trauma. LUNGS: Diffuse rales and rhonchi HEART: Regular rate and rhythm, normal S1 and S2 ABDOMEN: Soft, nontender, not distended UPPER EXTREMITIES: 2+ pulses, warm, well-perfused. No cyanosis. No clubbing. No peripheral edema. LOWER EXTREMITIES: 2+ pulses, warm, well-perfused. No calf tenderness. No peripheral edema. NEUROLOGICAL: Involuntary movements head, arms Laboratory Results - last 24 hr 11/13/19 11/13/19 16:15 16:15 WBC 8.4 RBC 3.93 Hgb 11.6 Hct 34.3 MCV 87.2 MCH 29.6 MCHC 33.9 RDW 11.7 Plt Count 310 MPV 8.1 Absolute Neuts (auto) 7.3 Neutrophils % 87.4 H Lymphocytes % 4.7 L Monocytes % 6.0 Eosinophils % 0.1 Basophils % 1.8 Sodium 133 L Potassium 4.2 Chloride 104 Carbon Dioxide 25 Anion Gap 4 L BUN 23.0 H Creatinine 0.7 Est GFR (CKD-EPI)AfAm 103.91 Est GFR (CKD-EPI)NonAf 89.65 Random Glucose 130 H Calcium 8.3 L Total Bilirubin 0.6 AST 24 ALT 9 L Alkaline Phosphatase 64 Total Protein 6.3 L Albumin 3.3 L ASSESSMENT/PLAN 69 year-old female with PMH significant for [place]'s disease, anxiety, and depression. Admitted for fever. Fever [place]'s Disease --Tm102.9 --no leukocytosis --CXR clear --IV fluids --high risk for aspiration pneumonitis; will start empiric Zosyn --IV Tylkenol [place]'s Disease --continue glycopyrrolate, clonazepam, atropine solution PO (anticholinergic for secretions), tetrabenazine Anxiety/depression --continue Celexa DVT prophylaxis: subq lovenox Visit type - Emergency Visit Emergency Visit: Yes ED Registration Date: 11/13/19 Care time: The patient presented to the Emergency Department on the above date and was hospitalized for further evaluation of their emergent condition. - New Patient This patient is new to me today: Yes Date on this admission: 11/16/19 - Critical Care Critical Care patient: No
[2019-11-13] MEDS ORDERED: DEXTROSE 5%-0.45% SALINE 1,000 ML IV SCH (17:15)
[2019-11-13] MEDS ORDERED: ALBUTEROL SO4 2.5/IPRATROPIUM 0.5 INH SOL 3 ML VIAL.NEB. NEB ONE ×4 (17:53→19:11)
--- NOTE | 2019-11-13 18:26 | PDOC ---
Documentation entered by Pancho Baer SCRIBE, acting as scribe for Helga Singh MD. Helga Singh MD: This documentation has been prepared by the Keyur bishop Daniel, SCRIBE, under my direction and personally reviewed by me in its entirety. I confirm that the documentation accurately reflects all work, treatment, procedures, and medical decision making performed by me. History of Present Illness - General Chief Complaint: Respiratory Stated Complaint: FEVER, COUGHING, Time Seen by Provider: 11/13/19 15:52 History Source: Care Provider, EMS Exam Limitations: No Limitations - History of Present Illness Initial Comments: 11/13/19 16:16 The patient is a 69 year old female with a past medical history of Huntingtons disease, depression, and anxiety here today from [facility] [place] for evaluation of fever and cough. Patient is non verbal and could not provide history. As per the patients aide, the patient developed a non productive cough and fever of 102 orally around 1 PM today. The patient was given tylenol while at her longterm. Aide also notes that the patient had poor PO intake today. As per EMS, the patient was hypoxic with her O2 saturation at 89% on room air. Aide denies that patient having any diarrhea or vomiting today. Allergies: lactose Past History - Past Medical History Allergies/Adverse Reactions: Allergies Allergy/AdvReac Type Severity Reaction Status Date / Time lactose AdvReac Verified 06/08/19 01:48 Home Medications: Ambulatory Orders Atropine 1% Ophth. Solution - 1 drop PO TID 06/08/19 Calcium Carb/D3/Magnesium/Zinc [[place] Mag Zinc-D Tablet] 1 each PO DAILY 06/08/19 Citalopram Hydrobromide [Citalopram HBr] 40 mg PO DAILY 06/08/19 Clonazepam 0.5 mg PO TID 06/08/19 Glycopyrrolate 1 mg PO BID 06/08/19 Tetrabenazine [Xenazine] 25 mg PO TID 06/08/19 Vitamin B Complex 1 each PO DAILY 06/08/19 Zolpidem Tartrate [Ambien] 10 mg PO HS 06/08/19 Acetaminophen [Tylenol] 650 mg PO PRN PRN 11/13/19 COPD: No Dementia: Yes Psychiatric Problems: Yes (ANXIETY,INSOMNIA, DEPRESSION) - Immunization History Td Vaccination: Yes TDAP Vaccination: Yes Immunization Up to Date: Yes - Psycho Social/Smoking Cessation Hx Smoking Status: Yes Smoking History: Former smoker Years of Tobacco Use: 0 Have you smoked in the past 12 months: No Number of Cigarettes Smoked Daily: 20 If you are a former smoker, when did you quit?: 2013 'Breaking Loose' booklet given: 05/07/14 Hx Alcohol Use: No Drug/Substance Use Hx: No Substance Use Type: None Hx Substance Use Treatment: No Review of Systems - Review of Systems Able to Perform ROS?: No (patient is non verbal) *Physical Exam - Vital Signs Last Vital Signs Temp Pulse Resp BP Pulse Ox 102.9 F H 119 H 20 151/89 97 11/13/19 15:51 11/13/19 15:51 11/13/19 15:51 11/13/19 15:51 11/13/19 15:55 - Physical Exam 11/13/19 16:17 GENERAL: The patient is in no acute distress. HEAD: Normal with no signs of trauma. EYES: PERRLA, EOMI, sclera anicteric, conjunctiva clear. ENT: Ears normal, nares patent, oropharynx clear without exudates. Moist mucous membranes. NECK: Normal range of motion, supple without lymphadenopathy, JVD, or masses. LUNGS: +harsh bilateral rhonchorous breath sounds. No wheezes, and no crackles. HEART:Regular rate and rhythm, normal S1 and S2 without murmur, rub or gallop. ABDOMEN: Soft, nontender, normoactive bowel sounds. No guarding, no rebound. No masses palpable. EXTREMITIES: Normal range of motion, no edema. No clubbing or cyanosis. No erythema, or tenderness. NEUROLOGICAL: +non verbal. Cranial nerves II through XII grossly intact. No focal neurological deficits. MUSCULOSKELETAL: Back non-tender to palpation, no CVA tenderness SKIN: Warm, Dry, normal turgor, no rashes or lesions noted. ED Treatment Course - LABORATORY CBC & Chemistry Diagram: 11/14/19 07:20 11/14/19 07:20 - ADDITIONAL ORDERS Additional order review: Laboratory Results 11/13/19 11/13/19 11/13/19 16:15 16:15 16:15 PT with INR INR PTT (Actin FS) Sodium 133 L Potassium 4.2 Chloride 104 Carbon Dioxide 25 Anion Gap 4 L BUN 23.0 H Creatinine 0.7 Est GFR (CKD-EPI)AfAm 103.91 Est GFR (CKD-EPI)NonAf 89.65 Random Glucose 130 H Calcium 8.3 L Total Bilirubin 0.6 AST 24 ALT 9 L Alkaline Phosphatase 64 Creatine Kinase 86 Troponin I < 0.03 Total Protein 6.3 L Albumin 3.3 L 11/13/19 16:15 PT with INR 14.4 H INR 1.29 H PTT (Actin FS) 27.0 Sodium Potassium Chloride Carbon Dioxide Anion Gap BUN Creatinine Est GFR (CKD-EPI)AfAm Est GFR (CKD-EPI)NonAf Random Glucose Calcium Total Bilirubin AST ALT Alkaline Phosphatase Creatine Kinase Troponin I Total Protein Albumin 11/13/19 16:15 RBC 3.93 MCV 87.2 MCHC 33.9 RDW 11.7 MPV 8.1 Neutrophils % 87.4 H Lymphocytes % 4.7 L Monocytes % 6.0 Eosinophils % 0.1 Basophils % 1.8 - RADIOLOGY Radiology Studies Ordered: Category Date Time Status CHEST X-RAY PORTABLE* [RAD] Stat Radiology 11/13/19 15:55 Taken - Medications Given in the ED: ED Medications Discontinued Medications Generic Name Dose Route Start Last Admin Trade Name Freq PRN Reason Stop Dose Admin Ibuprofen 600 mg 11/13/19 16:24 11/13/19 16:39 Caldolor Injection - IVPB 11/13/19 16:25 600 mg ONCE ONE Administration Medical Decision Making - Medical Decision Making 11/13/19 17:26 69 yo F h/o Huntingtons disease presenting with fevers and hypoxia Cough began today No vomiting or diarrhea Pt was given Tylenol prior to ER arrival DD Viral syndrome, pneumonia, UTI Laboratory Tests 11/13/19 11/13/19 11/13/19 16:15 16:15 16:15 WBC 8.4 Hgb 11.6 Hct 34.3 Plt Count 310 INR 1.29 H BUN 23.0 H Creatinine 0.7 Troponin I 11/13/19 16:15 WBC Hgb Hct Plt Count INR BUN Creatinine Troponin I < 0.03 CXR: EKG: NSR rate of 85 bpm, axis nml, intervlas nml, no st elevation or depression , low voltage 11/13/19 17:55 CXR - ? right middle lobe changes Admit to Hospitalist service Discharge - Discharge Information Problems reviewed: Yes Clinical Impression/Diagnosis: Febrile illness, acute Condition: Stable - Admission Yes - Follow up/Referral - Patient Discharge Instructions - Post Discharge Activity
[2019-11-13] MEDS: ACETAMINOPHEN 1000 MG/100 ML VIAL (NON FORMULARY) IVPB SCH (19:30)
[2019-11-13] MEDS: ALBUTEROL SO4 2.5/IPRATROPIUM 0.5 INH SOL 3 ML VIAL.NEB. NEB SCH (20:39)
[2019-11-13] MEDS ORDERED: VANCOMYCIN 1 GRAM (PRE-DOCKED) 1,000 MG/250 ML BAG IVPB ONE (21:15)
[2019-11-13] MEDS ORDERED: PIPERACILLIN/TAZOB 3.375 GM 3.375 GM in DEXTROSE 5%-WATER - 50 ML IVPB SCH (21:15)
[2019-11-13] MEDS ORDERED: PIPERACILLIN/TAZOBACTAM 3.375 GM VIAL IVPB ONE (21:37)
[2019-11-13] MEDS ORDERED: DEXTROSE 5%-WATER - 50 ML IVPB ONE (21:38)
[2019-11-13] MEDS: PIPERACILLIN/TAZOB 3.375 GM 3.375 GM in DEXTROSE 5%-WATER - 50 ML IVPB SCH (21:55)
[2019-11-13 21:58] LABS: EPITHELIAL CELLS FEW /hpf
[2019-11-13] MEDS ORDERED: ZOLPIDEM TARTRATE 5 MG TABLET PO PRN (22:00)
[2019-11-13] MEDS ORDERED: TETRABENAZINE 25 MG PO SCH (22:00)
[2019-11-13] MEDS: clonazePAM 0.5 MG TABLET PO SCH (22:18)
[2019-11-13] MEDS: ATROPINE SO4 1% OPHTH SOLN 5 ML BOTTLE OU SCH ×2 (22:57→23:30)
[2019-11-13] MEDS: GLYCOPYRROLATE 1 MG TABLET PO SCH (22:57)
[2019-11-14] MEDS: ACETAMINOPHEN 1000 MG/100 ML VIAL (NON FORMULARY) IVPB SCH ×4 (00:32→19:43)
[2019-11-14] MEDS ORDERED: PIPERACILLIN/TAZOBACTAM 3.375 GM VIAL IVPB ONE ×2 (01:21→10:13)
[2019-11-14] MEDS ORDERED: DEXTROSE 5%-WATER - 50 ML IVPB ONE ×2 (01:21→10:13)
[2019-11-14] MEDS: PIPERACILLIN/TAZOB 3.375 GM 3.375 GM in DEXTROSE 5%-WATER - 50 ML IVPB SCH ×2 (03:40→11:27)
[2019-11-14] MEDS: ATROPINE SO4 1% OPHTH SOLN 5 ML BOTTLE OU SCH ×3 (06:20→21:55)
[2019-11-14] MEDS: clonazePAM 0.5 MG TABLET PO SCH ×3 (06:20→21:53)
[2019-11-14 08:53] LABS: ALBUMIN 2.8 g/dl (3.4-5.0); BILIRUBIN,TOTAL 0.7 mg/dl (0.2-1); CREATININE 0.7 mg/dl (0.55-1.3); MAGNESIUM 1.8 mg/dL (1.8-2.4); POTASSIUM 3.7 mmol/L (3.5-5.1); TOT PROT 5.2 g/dl (6.4-8.2)
[2019-11-14] MEDS ORDERED: PT OWN MED DRAWER 7, Y5N ONE (10:12)
[2019-11-14 10:14] LABS: BASO % 0.3 % (0-2.0); EOS % 0.9 % (0-4.5); HEMATOCRIT 31.6 % (32.4-45.2); HEMOGLOBIN 10.6 GM/dL (10.7-15.3); LYMPH % 18.1 % (8-40); MCH 29.7 pg (25.7-33.7); MCHC 33.7 g/dl (32.0-36.0); MEAN PLT VOLUME 7.9 fl (7.5-11.1); MONO % 12.1 % (3.8-10.2); NEUT % 68.6 % (42.8-82.8); PLATELET COUNT 252 K/MM3 (134-434); RBC 3.59 M/mm3 (3.60-5.2); WHITE BLOOD COUNT 4.9 K/mm3 (4.0-10.0)
[2019-11-14] MEDS: VITAMIN B COMPLEX W/C COMBO TABLET (FP) PO SCH (11:26)
[2019-11-14] MEDS: ENOXAPARIN NA (PORCINE) 40 MG/0.4 ML DISP.SYRIN SQ SCH (11:26)
[2019-11-14] MEDS: CITALOPRAM HYDROBROMIDE 20 MG TABLET (FP) PO SCH (11:26)
[2019-11-14] MEDS: GLYCOPYRROLATE 1 MG TABLET PO SCH ×2 (11:27→21:53)
[2019-11-14] MEDS: ALBUTEROL SO4 2.5/IPRATROPIUM 0.5 INH SOL 3 ML VIAL.NEB. NEB SCH ×4 (11:27→20:30)
--- NOTE | 2019-11-14 11:41 | PN ---
Physical Exam: SUBJECTIVE: Patient seen and examined pt at bedside OBJECTIVE: Vital Signs Period Temp Pulse Resp BP Sys/Wills Pulse Ox Last 24 Hr 97.3 F-102.9 F 63-119 18-20 89-151/51-89 89-100 GENERAL: The patient is awake, alert, non-verbal, not in any acute distress. HEAD: Normal with no signs of trauma. EYES: PERRL, extraocular movements intact, sclera anicteric, conjunctiva clear. No ptosis. ENT: Ears normal, nares patent, oropharynx clear without exudates, moist mucous membranes. NECK: Trachea midline, full range of motion, supple. LUNGS: Breath sounds equal, clear to auscultation bilaterally, no wheezes, no crackles, no accessory muscle use. HEART: Regular rate and rhythm, S1, S2 without murmur, rub or gallop. ABDOMEN: Soft, nontender, nondistended, normoactive bowel sounds, no guarding, no rebound, no hepatosplenomegaly, no masses. EXTREMITIES: 2+ pulses, warm, well-perfused, no edema. NEUROLOGICAL: Non verbal at baseline, non ambulatory PSYCH: Normal mood, anxious SKIN: Warm, dry, normal turgor, no rashes or lesions noted Laboratory Results - last 24 hr 11/13/19 11/13/19 11/13/19 16:15 16:15 16:15 WBC 8.4 RBC 3.93 Hgb 11.6 Hct 34.3 MCV 87.2 MCH 29.6 MCHC 33.9 RDW 11.7 Plt Count 310 MPV 8.1 Absolute Neuts (auto) 7.3 Neutrophils % 87.4 H Lymphocytes % 4.7 L Monocytes % 6.0 Eosinophils % 0.1 Basophils % 1.8 Nucleated RBC % PT with INR 14.4 H INR 1.29 H PTT (Actin FS) 27.0 Sodium 133 L Potassium 4.2 Chloride 104 Carbon Dioxide 25 Anion Gap 4 L BUN 23.0 H Creatinine 0.7 Est GFR (CKD-EPI)AfAm 103.91 Est GFR (CKD-EPI)NonAf 89.65 Random Glucose 130 H Lactic Acid Calcium 8.3 L Magnesium Total Bilirubin 0.6 AST 24 ALT 9 L Alkaline Phosphatase 64 Creatine Kinase Troponin I Total Protein 6.3 L Albumin 3.3 L Urine Color Urine Appearance Urine pH Urine Protein Urine Glucose (UA) Urine Ketones Urine Blood Urine Nitrite Urine Bilirubin Urine Urobilinogen Ur Leukocyte Esterase Urine RBC Urine WBC Ur Transition Epith Cell Urine Bacteria Influenza A (Rapid) Influenza B (Rapid) 11/13/19 11/13/19 11/13/19 16:15 16:15 16:15 WBC RBC Hgb Hct MCV MCH MCHC RDW Plt Count MPV Absolute Neuts (auto) Neutrophils % Lymphocytes % Monocytes % Eosinophils % Basophils % Nucleated RBC % PT with INR INR PTT (Actin FS) Sodium Potassium Chloride Carbon Dioxide Anion Gap BUN Creatinine Est GFR (CKD-EPI)AfAm Est GFR (CKD-EPI)NonAf Random Glucose Lactic Acid 1.9 Calcium Magnesium Total Bilirubin AST ALT Alkaline Phosphatase Creatine Kinase 86 Troponin I < 0.03 Total Protein Albumin Urine Color Urine Appearance Urine pH Urine Protein Urine Glucose (UA) Urine Ketones Urine Blood Urine Nitrite Urine Bilirubin Urine Urobilinogen Ur Leukocyte Esterase Urine RBC Urine WBC Ur Transition Epith Cell Urine Bacteria Influenza A (Rapid) Influenza B (Rapid) 11/13/19 11/13/19 11/14/19 16:15 20:15 07:20 WBC 4.9 RBC 3.59 L Hgb 10.6 L Hct 31.6 L D MCV 88.0 MCH 29.7 MCHC 33.7 RDW 13.0 Plt Count 252 MPV 7.9 Absolute Neuts (auto) 3.3 Neutrophils % 68.6 D Lymphocytes % 18.1 D Monocytes % 12.1 H D Eosinophils % 0.9 D Basophils % 0.3 Nucleated RBC % 0 PT with INR INR PTT (Actin FS) Sodium Potassium Chloride Carbon Dioxide Anion Gap BUN Creatinine Est GFR (CKD-EPI)AfAm Est GFR (CKD-EPI)NonAf Random Glucose Lactic Acid Calcium Magnesium Total Bilirubin AST ALT Alkaline Phosphatase Creatine Kinase Troponin I Total Protein Albumin Urine Color Yellow Urine Appearance Clear Urine pH 6.0 Urine Protein Negative Urine Glucose (UA) Negative Urine Ketones Negative Urine Blood 1+ H Urine Nitrite Negative Urine Bilirubin Negative Urine Urobilinogen 0.2 Ur Leukocyte Esterase Negative Urine RBC 5-8 Urine WBC 0-2 Ur Transition Epith Cell Few Urine Bacteria Few Influenza A (Rapid) Negative Influenza B (Rapid) Negative 11/14/19 07:20 WBC RBC Hgb Hct MCV MCH MCHC RDW Plt Count MPV Absolute Neuts (auto) Neutrophils % Lymphocytes % Monocytes % Eosinophils % Basophils % Nucleated RBC % PT with INR INR PTT (Actin FS) Sodium 136 Potassium 3.7 Chloride 105 Carbon Dioxide 25 Anion Gap 6 L BUN 16.0 Creatinine 0.7 Est GFR (CKD-EPI)AfAm 103.91 Est GFR (CKD-EPI)NonAf 89.65 Random Glucose 120 H Lactic Acid Calcium 8.0 L Magnesium 1.8 Total Bilirubin 0.7 AST 23 ALT 10 L Alkaline Phosphatase 51 D Creatine Kinase Troponin I Total Protein 5.2 L Albumin 2.8 L Urine Color Urine Appearance Urine pH Urine Protein Urine Glucose (UA) Urine Ketones Urine Blood Urine Nitrite Urine Bilirubin Urine Urobilinogen Ur Leukocyte Esterase Urine RBC Urine WBC Ur Transition Epith Cell Urine Bacteria Influenza A (Rapid) Influenza B (Rapid) Active Medications Generic Name Dose Route Start Last Admin Trade Name Freq PRN Reason Stop Dose Admin Acetaminophen 750 mg 11/13/19 18:30 11/14/19 06:21 Ofirmev Injection - IVPB 750 mg Q6H SAVANNAH Administration Albuterol/Ipratropium 1 amp 11/13/19 20:00 11/13/19 20:39 Duoneb - NEB 1 amp RQID SAVANNAH Administration Atropine Sulfate 1 drop 11/13/19 22:00 11/14/19 06:20 Atropine 1% Ophth. Solution - OU 1 drop TID SAVANNAH Administration Citalopram Hydrobromide 40 mg 11/14/19 10:00 Celexa - PO DAILY SAVANNAH Clonazepam 0.5 mg 11/13/19 22:00 11/14/19 06:20 Klonopin - PO 0.5 mg TID SAVANNAH Administration Enoxaparin Sodium 40 mg 11/14/19 10:00 Lovenox - SQ DAILY SAVANNAH Glycopyrrolate 1 mg 11/13/19 22:00 Robinul - PO BID SAVANNAH Dextrose/Sodium Chloride 1,000 mls @ 75 mls/hr 11/13/19 17:15 11/13/19 22:18 D5-1/2ns - IV 75 mls/hr ASDIR SAVANNAH Administration Piperacillin Sod/Tazobactam 50 mls @ 100 mls/hr 11/13/19 21:15 Sod 3.375 gm/ Dextrose IVPB Q8H-IV SAVANNAH Protocol Multivitamins 1 each 11/14/19 10:00 Total B With C - PO DAILY SAVANNAH Non-Formulary Medication 25 mg 11/13/19 22:00 Tetrabenazine [Xenazine] PO TID SAVANNAH Sodium Chloride 1,500 ml 11/13/19 16:30 11/13/19 16:39 Normal Saline - IV 1,500 ml ONCE SAVANNAH Administration Zolpidem Tartrate 5 mg 11/13/19 22:00 Ambien - PO HS PRN INSOMNIA CxR: No acute lung pathology ASSESSMENT/PLAN: 69 year-old female residing at [facility] at [place] with PMH significant for Walthall's disease, hx of aspiration pneumonia,aspiration anxiety, and depression. Brought to ED today for evaluation of fever and cough. Patient is non verbal and cannot provide history *Fever/ cough - max temp 102. 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 Hendricks, neurologist ([phone]) *Anxiety/Depression -continue citalopram, ambien, clonazepam *Functional quadraplegia -Total care FEN Fluids: IVF Electrolytes: replete as indicated Nutrition: Dysphagia. pureed diet and honey thick liquid in a teaspoon only. DVT prophylaxis: Lovenox Dispo: continues to require inpatient care. Plan to discharge tomorrow on PO antibiotics. Full code. Son and daughter are health care proxy -Ju Miguelina [phone] -Dimitri Miguelina [phone] Visit type - Emergency Visit Emergency Visit: Yes ED Registration Date: 11/13/19 Care time: The patient presented to the Emergency Department on the above date and was hospitalized for further evaluation of their emergent condition. - New Patient This patient is new to me today: Yes Date on this admission: 11/14/19 - Critical Care Critical Care patient: No
--- NOTE | 2019-11-14 14:32 | EKG ---
Test Reason : Blood Pressure : / mmHG Vent. Rate : 085 BPM Atrial Rate : 085 BPM P-R Int : 136 ms QRS Dur : 076 ms QT Int : 376 ms P-R-T Axes : 039 019 060 degrees QTc Int : 447 ms NORMAL SINUS RHYTHM LOW VOLTAGE QRS CANNOT RULE OUT ANTERIOR INFARCT (CITED ON OR BEFORE 29-NOV-2017) ABNORMAL ECG WHEN COMPARED WITH ECG OF 09-JUN-2019 10:53, NO SIGNIFICANT CHANGE WAS FOUND Confirmed by PAMELA WEBER MD ([id number]) on 11/14/2019 2:32:02 PM Referred By: MD HARDING Confirmed By:PAMELA WEBER MD
[2019-11-14] MEDS: SODIUM CHLORIDE 0.9% 1000 ML INFUS.BAG IV SCH (19:18)
[2019-11-15] MEDS: ACETAMINOPHEN 1000 MG/100 ML VIAL (NON FORMULARY) IVPB SCH ×4 (01:10→18:09)
[2019-11-15] MEDS: ATROPINE SO4 1% OPHTH SOLN 5 ML BOTTLE OU SCH ×3 (06:48→22:33)
[2019-11-15] MEDS: clonazePAM 0.5 MG TABLET PO SCH ×3 (06:49→22:32)
[2019-11-15 07:31] LABS: BASO % 0.6 % (0-2.0); EOS % 3.2 % (0-4.5); HEMATOCRIT 33.4 % (32.4-45.2); HEMOGLOBIN 11.4 GM/dL (10.7-15.3); MCH 29.3 pg (25.7-33.7); MEAN CELL VOLUME 86.1 fl (80-96); MEAN PLT VOLUME 7.9 fl (7.5-11.1); MONO % 9.3 % (3.8-10.2); NEUT % 68.9 % (42.8-82.8); PLATELET COUNT 306 K/MM3 (134-434); RBC 3.88 M/mm3 (3.60-5.2); RDW 12.6 % (11.6-15.6); WHITE BLOOD COUNT 4.9 K/mm3 (4.0-10.0)
[2019-11-15] MEDS ORDERED: PT OWN MED DRAWER 7, Y5N ONE ×8 (10:01→22:25)
[2019-11-15] MEDS: ALBUTEROL SO4 2.5/IPRATROPIUM 0.5 INH SOL 3 ML VIAL.NEB. NEB SCH ×4 (10:40→19:55)
[2019-11-15] MEDS: GLYCOPYRROLATE 1 MG TABLET PO SCH ×2 (10:40→22:32)
[2019-11-15] MEDS: CITALOPRAM HYDROBROMIDE 20 MG TABLET (FP) PO SCH (10:40)
[2019-11-15] MEDS: VITAMIN B COMPLEX W/C COMBO TABLET (FP) PO SCH (10:42)
[2019-11-15] MEDS: PIPERACILLIN/TAZOB 3.375 GM 3.375 GM in DEXTROSE 5%-WATER - 50 ML IVPB SCH ×2 (10:42→19:19)
[2019-11-15] MEDS: ENOXAPARIN NA (PORCINE) 40 MG/0.4 ML DISP.SYRIN SQ SCH (10:42)
[2019-11-15] MEDS ORDERED: PIPERACILLIN/TAZOBACTAM 3.375 GM VIAL IVPB ONE ×3 (10:43→23:53)
[2019-11-15] MEDS ORDERED: DEXTROSE 5%-WATER - 50 ML IVPB ONE ×3 (10:43→23:53)
--- NOTE | 2019-11-15 11:00 | PN ---
Physical Exam: SUBJECTIVE: Patient seen and examined OBJECTIVE: Vital Signs Period Temp Pulse Resp BP Sys/Wills Pulse Ox Last 24 Hr 97.8 F-98.3 F 75-101 18-20 120-131/55-74 93-99 GENERAL: The patient is awake, alert, non-verbal, not in any acute distress. HEAD: Normal with no signs of trauma. EYES: PERRL, extraocular movements intact, sclera anicteric, conjunctiva clear. No ptosis. ENT: Ears normal, nares patent, oropharynx clear without exudates, moist mucous membranes. NECK: Trachea midline, full range of motion, supple. LUNGS: Breath sounds equal, clear to auscultation bilaterally, no wheezes, no crackles, no accessory muscle use. HEART: Regular rate and rhythm, S1, S2 without murmur, rub or gallop. ABDOMEN: Soft, nontender, nondistended, normoactive bowel sounds, no guarding, no rebound, no hepatosplenomegaly, no masses. EXTREMITIES: 2+ pulses, warm, well-perfused, no edema. NEUROLOGICAL: Non verbal at baseline, non ambulatory PSYCH: Normal mood, anxious SKIN: Warm, dry, normal turgor, no rashes or lesions noted Laboratory Results - last 24 hr 11/15/19 06:00 WBC 4.9 RBC 3.88 Hgb 11.4 Hct 33.4 MCV 86.1 MCH 29.3 MCHC 34.0 RDW 12.6 Plt Count 306 D MPV 7.9 Absolute Neuts (auto) 3.4 Neutrophils % 68.9 Lymphocytes % 18.0 Monocytes % 9.3 Eosinophils % 3.2 D Basophils % 0.6 Nucleated RBC % 0 Active Medications Generic Name Dose Route Start Last Admin Trade Name Florianq PRN Reason Stop Dose Admin Acetaminophen 750 mg 11/13/19 18:30 11/15/19 06:47 Ofirmev Injection - IVPB 750 mg Q6H SAVANNAH Administration Albuterol/Ipratropium 1 amp 11/13/19 20:00 11/15/19 10:40 Duoneb - NEB 1 amp RQID SAVANNAH Administration Atropine Sulfate 1 drop 11/13/19 22:00 11/15/19 06:48 Atropine 1% Ophth. Solution - OU 1 drop TID SAVANNAH Administration Citalopram Hydrobromide 40 mg 11/14/19 10:00 11/15/19 10:40 Celexa - PO 40 mg DAILY SAVANNAH Administration Clonazepam 0.5 mg 11/13/19 22:00 11/15/19 06:49 Klonopin - PO 0.5 mg TID SAVANNAH Administration Enoxaparin Sodium 40 mg 11/14/19 10:00 11/15/19 10:42 Lovenox - SQ 40 mg DAILY SAVANNAH Administration Glycopyrrolate 1 mg 11/13/19 22:00 11/15/19 10:40 Robinul - PO 1 mg BID SAVANNAH Administration Piperacillin Sod/Tazobactam 50 mls @ 100 mls/hr 11/15/19 10:15 11/15/19 10:42 Sod 3.375 gm/ Dextrose IVPB 100 mls/hr Q8H-IV SAVANNAH Administration Protocol Multivitamins 1 each 11/14/19 10:00 11/15/19 10:42 Total B With C - PO 1 each DAILY SAVANNAH Administration Non-Formulary Medication 25 mg 11/13/19 22:00 Tetrabenazine [Xenazine] PO TID SAVANNAH Sodium Chloride 1,500 ml 11/13/19 16:30 11/14/19 19:18 Normal Saline - IV Not Given ONCE SAVANNAH Zolpidem Tartrate 5 mg 11/13/19 22:00 Ambien - PO HS PRN INSOMNIA ASSESSMENT/PLAN: 69 year-old female residing at [place] at [place] with PMH significant for Steve's disease, hx of aspiration pneumonia,aspiration anxiety, and depression. Brought to ED today for evaluation of fever and cough. Patient is non verbal and cannot provide history Fever/ cough - max temp 102. 9, afebrile now - no leukocytosis - cultures pending - Influenza ruled out -Urine legonella Ant. 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 Hendricks, neurologist ([phone]) Anxiety/Depression -continue citalopram, ambien, clonazepam Functional quadraplegia -Total care FEN Fluids: IVF Electrolytes: replete as indicated Nutrition: Dysphagia. pureed diet and honey thick liquid in a teaspoon only. DVT prophylaxis: Lovenox Dispo: continues to require inpatient care. Plan to discharge tomorrow on PO antibiotics. Full code. Son and daughter are health care proxy -Ju Mcintyre [phone] -Dimitri Mcintyre [phone] Visit type - Emergency Visit Emergency Visit: Yes ED Registration Date: 11/13/19 Care time: The patient presented to the Emergency Department on the above date and was hospitalized for further evaluation of their emergent condition. - New Patient This patient is new to me today: Yes Date on this admission: 11/15/19 - Critical Care Critical Care patient: No - Discharge Referral Referred to [facility] Med P.C.: No
[2019-11-15] MEDS: SODIUM CHLORIDE 0.9% 1000 ML INFUS.BAG IV SCH (16:03)
[2019-11-15] MEDS: TETRABENAZINE 25 MG PO SCH (18:09)
[2019-11-15] MEDS ORDERED: TETRABENAZINE 25 MG PO SCH (22:00)
[2019-11-16] MEDS: ACETAMINOPHEN 1000 MG/100 ML VIAL (NON FORMULARY) IVPB SCH ×4 (00:06→18:01)
[2019-11-16] MEDS: PIPERACILLIN/TAZOB 3.375 GM 3.375 GM in DEXTROSE 5%-WATER - 50 ML IVPB SCH ×3 (01:07→18:06)
[2019-11-16] MEDS: clonazePAM 0.5 MG TABLET PO SCH ×3 (06:02→23:17)
[2019-11-16] MEDS: ATROPINE SO4 1% OPHTH SOLN 5 ML BOTTLE OU SCH (06:02)
[2019-11-16] MEDS: ALBUTEROL SO4 2.5/IPRATROPIUM 0.5 INH SOL 3 ML VIAL.NEB. NEB SCH ×3 (08:23→14:47)
[2019-11-16] MEDS ORDERED: TETRABENAZINE 25 MG PO SCH (09:00)
[2019-11-16] MEDS: TETRABENAZINE 25 MG PO SCH ×3 (09:00→18:06)
[2019-11-16 09:07] LABS: BASO % 0.6 % (0-2.0); EOS % 2.8 % (0-4.5); HEMATOCRIT 34.6 % (32.4-45.2); HEMOGLOBIN 11.6 GM/dl (10.7-15.3); LYMPH % 12.7 % (8-40); MCH 29.2 pg (25.7-33.7); MCHC 33.5 g/dl (32.0-36.0); MEAN PLT VOLUME 7.9 fl (7.5-11.1); MONO % 6.7 % (3.8-10.2); NEUT % 77.2 % (42.8-82.8); PLATELET COUNT 354 K/MM3 (134-434); RBC 3.98 M/mm3 (3.60-5.2); RDW 11.6 % (11.6-15.6); WHITE BLOOD COUNT 6.6 K/mm3 (4.0-10.8)
[2019-11-16 09:15] LABS: ALBUMIN 3.5 g/dl (3.4-5.0); CALCIUM 8.9 mg/dl (8.5-10); CREATININE 0.7 mg/dl (0.55-1.3); MAGNESIUM 1.9 mg/dL (1.8-2.4); POTASSIUM 3.8 mmol/L (3.5-5.1); TOT PROT 6.1 g/dl (6.4-8.2)
[2019-11-16] MEDS ORDERED: DEXTROSE 5%-WATER - 50 ML IVPB ONE ×2 (10:07→17:53)
[2019-11-16] MEDS ORDERED: PIPERACILLIN/TAZOBACTAM 3.375 GM VIAL IVPB ONE ×2 (10:07→17:52)
[2019-11-16] MEDS: VITAMIN B COMPLEX W/C COMBO TABLET (FP) PO SCH (10:39)
[2019-11-16] MEDS: CITALOPRAM HYDROBROMIDE 20 MG TABLET (FP) PO SCH (10:39)
[2019-11-16] MEDS: ENOXAPARIN NA (PORCINE) 40 MG/0.4 ML DISP.SYRIN SQ SCH (10:39)
[2019-11-16] MEDS: GLYCOPYRROLATE 1 MG TABLET PO SCH ×2 (10:39→23:17)
[2019-11-16] MEDS ORDERED: PT OWN MED DRAWER 7, Y5N ONE ×4 (10:42→18:28)
[2019-11-16] MEDS: ATROPINE SO4 1% OPHTH SOLN 5 ML BOTTLE PO SCH ×2 (14:46→23:17)
--- NOTE | 2019-11-16 16:51 | PN ---
Documentation entered by Ayde Talbot SCRIBE, acting as scribe for Kim Sanders NP. Physical Exam: SUBJECTIVE: Patient seen and examined at bedside. OBJECTIVE: Vital Signs Period Temp Pulse Resp BP Sys/Wills Pulse Ox Last 24 Hr 97.4 F-98.1 F 65-96 17-19 120-148/67-79 92-100 GENERAL: The patient is awake, makes eye contact, speech is not decipherable, communicates with facial expression and sounds NEURO: involuntary movements bilateral arms, legs, head LUNGS: Diffuse expiratory wheezing HEART: Regular rate and rhythm, S1, S2 ABDOMEN: Soft, nontender, nondistended, normoactive bowel sounds, EXTREMITIES: 2+ pulses, warm, well-perfused, no edema. Active Medications Generic Name Dose Route Start Last Admin Trade Name Freq PRN Reason Stop Dose Admin Acetaminophen 750 mg 11/13/19 18:30 11/16/19 06:01 Ofirmev Injection - IVPB 750 mg Q6H SAVANNAH Administration Albuterol/Ipratropium 1 amp 11/13/19 20:00 11/15/19 19:55 Duoneb - NEB 1 amp RQID SAVANNAH Administration Atropine Sulfate 1 drop 11/13/19 22:00 11/16/19 06:02 Atropine 1% Ophth. Solution - OU Not Given TID SAVANNAH Citalopram Hydrobromide 40 mg 11/14/19 10:00 11/15/19 10:40 Celexa - PO 40 mg DAILY SAVANNAH Administration Clonazepam 0.5 mg 11/13/19 22:00 11/16/19 06:02 Klonopin - PO 0.5 mg TID SAVANNAH Administration Enoxaparin Sodium 40 mg 11/14/19 10:00 11/15/19 10:42 Lovenox - SQ 40 mg DAILY SAVANNAH Administration Glycopyrrolate 1 mg 11/13/19 22:00 11/15/19 22:32 Robinul - PO 1 mg BID SAVANNAH Administration Piperacillin Sod/Tazobactam 50 mls @ 100 mls/hr 11/15/19 10:15 11/16/19 01:07 Sod 3.375 gm/ Dextrose IVPB 100 mls/hr Q8H-IV SAVANNAH Administration Protocol Multivitamins 1 each 11/14/19 10:00 11/15/19 10:42 Total B With C - PO 1 each DAILY SAVANNAH Administration (Tetrabenazine [ 50 mg 11/15/19 17:30 11/15/19 18:09 Xenazine] 25 Mg) PO 50 mg DAILY@1700 SAVANNAH Administration (Tetrabenazine [ 25 mg 11/16/19 09:00 Xenazine] 25 Mg) PO 0900,1200 SAVANNAH Sodium Chloride 1,500 ml 11/13/19 16:30 11/15/19 16:03 Normal Saline - IV Not Given ONCE SAVANNAH Zolpidem Tartrate 5 mg 11/13/19 22:00 Ambien - PO HS PRN INSOMNIA ASSESSMENT/PLAN 69 year-old female with PMH significant for Steve's disease, anxiety, and depression. Admitted for fever likely secondary to aspiration pneumonitis. Fever Steve's Disease --defervesced on date of admission, no leukocytosis --CXR clear --high risk for aspiration pneumonitis; Zosyn (day #4) --IV Tylenol for fever --duonebs TID Hungtinton's Disease --continue glycopyrrolate, clonazepam, atropine solution PO (anticholinergic for secretions), tetrabenazine Anxiety/depression --continue Celexa FEN Fluids: PO intake adequate Electrolytes: replete as indicated Nutrition: dysphagia puree honey thick DVT prophylaxis: subq lovenox Dispo: continues to require inpatient care. Likely can discharge tomorrow. FULL CODE. Visit type - Emergency Visit Emergency Visit: Yes ED Registration Date: 11/13/19 Care time: The patient presented to the Emergency Department on the above date and was hospitalized for further evaluation of their emergent condition. - New Patient This patient is new to me today: No - Critical Care Critical Care patient: No Kim Sanders, COMPLEX CARE NURSE PRACTITIONER: This documentation has been prepared by the Antione bishop Maria, SCRIBE, under my direction and personally reviewed by me in its entirety. I confirm that the documentation accurately reflects all work, treatment, procedures, and medical decision making performed by me.
[2019-11-16 16:52] VITALS: BMI 22.2
--- NOTE | 2019-11-16 17:34 | RAPID ---
Physical Examination Vital Signs: Vital Signs Temperature 98.2 F 11/16/19 14:00 Pulse Rate 83 11/16/19 14:00 Respiratory Rate 16 11/16/19 14:00 Blood Pressure 147/90 11/16/19 14:00 O2 Sat by Pulse Oximetry (%) 98 11/16/19 07:52 Summoned to patient's room for unresonsiveness. BP 130/68 p 68 97%RA 98.6 General/Neuro: Patient found lying supine in bed, eyes closed. Not responsive to verbal stimuli but withdrew from physical stimuli. No involuntary writhing or jerking movements, lying completely still (markedly different from earlier in day with significant chorea). After about 45 seconds patient opened eyes to voice. Able to articulate the word "fine" but quickly went back to sleep, unable to keep eyes open. EENT: Pupils 3mm, equal, round, reactive Lungs: bilateral breath sounds CTA CV: S1, S2, rrr Patient was connected to monitor and observed to roma down to 40. Rapid response called, ED team responded. A&P Symptomatic bradycardia --back in normal SR @70bpm --telemetry monitoring --atropine at bedside --cbc, cmp, lytes, lactic acid, troponins --CXR --CT head --Echo --cardiology consult --transfer to [facility] telemetry, ACLS transport --NOTE: per daughter, dose of tetrabenazine was increased in mid-September from 25mg TID, to 25mg in am, 25mg midday, 50mg bedtime; this is a $9,000/month medication and when patient was transferred from [place] to ED, EMS did not want to transport and the med did not accompany patient; was off the med from 11/13 to 11/15, restarted last night; patient taking own med, will be transported with her to [facility]; the [place] has more of this medication if needed FULL CODE Labs: CBC, BMP 11/16/19 07:25 11/16/19 07:25
[2019-11-16] MEDS: SODIUM CHLORIDE 0.9% 1000 ML INFUS.BAG IV SCH (18:02)
[2019-11-16 18:21] LABS: BASO % 0.5 % (0-2.0); HEMATOCRIT 37.9 % (32.4-45.2); HEMOGLOBIN 12.5 GM/dl (10.7-15.3); LYMPH % 23.6 % (8-40); MEAN CELL VOLUME 87.9 fl (80-96); MEAN PLT VOLUME 7.7 fl (7.5-11.1); MONO % 8.7 % (3.8-10.2); NEUT % 63.2 % (42.8-82.8); PLATELET COUNT 367 K/MM3 (134-434); RBC 4.32 M/mm3 (3.60-5.2); RDW 12.1 % (11.6-15.6); WHITE BLOOD COUNT 6.4 K/mm3 (4.0-10.8)
[2019-11-16 18:33] LABS: ALBUMIN 3.5 g/dl (3.4-5.0); BILIRUBIN,TOTAL 1.2 mg/dl (0.2-1); CALCIUM 9.1 mg/dl (8.5-10); CREATININE 0.9 mg/dl (0.55-1.3); MAGNESIUM 2.2 mg/dL (1.8-2.4); POTASSIUM 3.9 mmol/L (3.5-5.1); TOT PROT 6.4 g/dl (6.4-8.2)
[2019-11-17] MEDS ORDERED: DEXTROSE 5%-WATER - 50 ML IVPB ONE ×3 (01:02→17:23)
[2019-11-17] MEDS ORDERED: PIPERACILLIN/TAZOBACTAM 3.375 GM VIAL IVPB ONE ×3 (01:02→17:22)
[2019-11-17] MEDS: ACETAMINOPHEN 1000 MG/100 ML VIAL (NON FORMULARY) IVPB SCH ×4 (01:06→18:43)
[2019-11-17] MEDS: ALBUTEROL SO4 2.5/IPRATROPIUM 0.5 INH SOL 3 ML VIAL.NEB. NEB SCH ×4 (01:06→20:57)
[2019-11-17] MEDS: PIPERACILLIN/TAZOB 3.375 GM 3.375 GM in DEXTROSE 5%-WATER - 50 ML IVPB SCH ×3 (01:34→17:41)
[2019-11-17] MEDS: clonazePAM 0.5 MG TABLET PO SCH ×3 (06:41→22:43)
[2019-11-17] MEDS: ATROPINE SO4 1% OPHTH SOLN 5 ML BOTTLE PO SCH ×3 (06:41→22:00)
[2019-11-17] MEDS ORDERED: PT OWN MED DRAWER 7, Y5N ONE ×6 (06:57→22:33)
[2019-11-17 08:35] LABS: BASO % 0.8 % (0-2.0); EOS % 5.2 % (0-4.5); HEMATOCRIT 35.7 % (32.4-45.2); HEMOGLOBIN 12.2 GM/dL (10.7-15.3); LYMPH % 21.5 % (8-40); MCH 29.3 pg (25.7-33.7); MCHC 34.1 g/dl (32.0-36.0); MEAN PLT VOLUME 7.2 fl (7.5-11.1); MONO % 6.4 % (3.8-10.2); NEUT % 66.1 % (42.8-82.8); PLATELET COUNT 383 K/MM3 (134-434); RBC 4.15 M/mm3 (3.60-5.2); RDW 12.5 % (11.6-15.6); WHITE BLOOD COUNT 6.9 K/mm3 (4.0-10.0)
[2019-11-17] MEDS: CITALOPRAM HYDROBROMIDE 20 MG TABLET (FP) PO SCH (10:00)
[2019-11-17] MEDS: VITAMIN B COMPLEX W/C COMBO TABLET (FP) PO SCH (10:04)
[2019-11-17] MEDS: ENOXAPARIN NA (PORCINE) 40 MG/0.4 ML DISP.SYRIN SQ SCH (10:05)
[2019-11-17] MEDS: TETRABENAZINE 25 MG PO SCH ×4 (10:06→18:48)
[2019-11-17] MEDS: GLYCOPYRROLATE 1 MG TABLET PO SCH ×2 (10:49→22:43)
--- NOTE | 2019-11-17 11:42 | CONSULT ---
Admitting History and Physical - Primary Care Physician PCP: Sharyn Morrow - Admission History of Present Illness: Per EMR- 69 year-old female residing at [facility] at [place] with PMH significant for Steve's disease, anxiety, and depression. Brought to ED today for evaluation of fever and cough. Patient is non verbal and cannot provide history. As per the patients aide, the patient developed a non productive cough and fever of 102 orally around 1 PM today. The patient was given tylenol while at the correction. Aide also noted the patient had poor PO intake today. As per EMS, the patient was hypoxic with her O2 saturation at 89% on room air. Puree/honey thick liquid ordered 11/14 Selected Entries 11/13/19 11/14/19 11/14/19 22:51 01:58 07:00 Breakfast Supper NPO Temperature 98.5 F 98.6 F Respiratory Rate Respiratory Effort 11/14/19 11/14/19 11/14/19 10:00 14:49 17:00 Breakfast Supper 25% Temperature 98.2 F 98.1 F Respiratory Rate Respiratory Effort 11/14/19 11/14/19 11/15/19 18:00 23:00 06:00 Breakfast Supper Temperature 97.8 F 98.0 F 98.3 F Respiratory 18 Rate Respiratory Effort 11/15/19 11/15/19 11/15/19 09:00 10:22 14:00 Breakfast 50% Supper Temperature 97.9 F Respiratory 19 Rate Respiratory Non-Labored Effort 11/15/19 11/15/19 11/15/19 17:00 18:00 21:00 Breakfast Supper 50% Temperature 98.1 F Respiratory 17 Rate Respiratory Non-Labored Effort 11/15/19 11/16/19 11/16/19 22:00 02:00 06:00 Breakfast Supper Temperature 97.4 F L 97.4 F L 97.4 F L Respiratory 19 19 19 Rate Respiratory Effort 11/16/19 11/16/19 11/16/19 07:52 10:00 12:01 Breakfast 25% Supper Temperature 98.1 F Respiratory 18 19 Rate Respiratory Non-Labored Effort 11/16/19 11/16/19 11/16/19 14:00 18:00 21:30 Breakfast Supper Temperature 98.2 F 98.8 F 97.8 F Respiratory 16 16 18 Rate Respiratory Effort 11/16/19 11/17/19 11/17/19 21:50 01:00 06:00 Breakfast Supper Temperature 97.9 F 98.3 F Respiratory 18 18 Rate Respiratory Non-Labored Effort Laboratory Tests 11/14/19 11/15/19 11/16/19 07:20 06:00 07:25 WBC 4.9 4.9 6.6 11/17/19 07:25 WBC 6.9 !01/17-Rapid response - period of unresponsiveness CT head (-) CXR-NAD Last mbs-Date: 01/24/18 admission: Modified barium swallow performed With Dr. Aguilar,upright lateral, Using pured food, nectar thick liquid and honey thick liquid from a cup and spoon. impulsive intake with patients sucking the food quickly into oral cavity. Delayed swallow onset with the fair laryngeal elevation and depression.Mild Silent aspiration on nectar and honey thick liquid from a cup. Aspiration was slightly reduced on honey thick liquid on a teaspoon. Esophagus could not be visualized due to positioning. impression: silent aspiration and honey thick liquid and nectar thick liquid from a copy messenger, reduced with honey thick liquid on a teaspoon. Patient is at risk of aspiration and dehydration rec: dysphagia. pureed diet and honey thick liquid in a teaspoon only. No cup or straw drinking. reminder pt To flex her head down and swallow hard. If patient becomes congested again or develops recurrent pneumonia, consider gastrostomy tube feeding for hydration with PO pure diet only. Pt was beeing fed today, puree and honey thick from a tsp. Pt grabbed the cup and rapidly sucked in the honey liquid and began coughing with wet upper airway , c/w aspiration. Pt made NPO pending swallow evaluation Private Statistical Assistant that takes care of pt arrived and said she eats puree and thick liquid FROM A Sippy CUP or GLASS. She said she tolerates it. I observed her feeding pt. Pt is impulsive, speaks while food is in her mouth/ throat,sucks in large amounts, wet vocal quality and cough resulted from cup drinking. Less so from spoon. Silent aspiration can not be r/o at bedside. CXR' s have been clear. Her AGRICULTURAL TECHNICIAN reported she had PNA over the summer. 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 No: O2 Dependent ...: No - Advance Directives Advance Directives: Yes: Health Care Proxy - Smoking History Smoking history: Former smoker Have you smoked in the past 12 months: No Aproximately how many cigarettes per day: 20 If you are a former smoker, when did you quit?: 2013 - Alcohol/Substance Use Hx Alcohol Use: No History - Admission Reason For Visit: ACUTE FEBRILE ILLNESS - Diagnostics X-ray: Report Reviewed - General Mental Status: Awake and Alert, Able to Follow Commands, Forgetful (suspected), Confused (impulsive) - Hearing Hearing: Normal Hearing Aide: No With Patient: No Speech Evaluation - Communication Primary Language: ESTONIAN Communication: Yes: Dysarthria Oral Expression Ability: Yes: Moderate Impairment, Severe Impairment - Speech Production Apraxia: No Able to Make Needs Known: Yes: Moderately Impaired, Severely Impaired Intelligibility: Yes: Moderately Impaired, Severely Impaired - Speech Characteristics Voice Loudness: Excessive Variation Voice Pitch: Yes: Excessive Variation Voice Phonatory-based Quality: Yes: Dysphonia, Vocal Wetness Speech Pattern: Impaired Speech Clarity: < 25% (bursts of rapid speech) Articulation: Yes: Imprecise Rate of Speech: Too Fast Voice, Other Observations: Yes: Progressively Weak Voice, Hard Glottal Attacks, Disordered Intonation, Inadequate Breath Support - Language/Auditory Comprehension Follows: Yes: 1 Stage Simple Commands Observation: Comprehends Conversational Speech: Yes - Language/Verbal Expression Able to Respond to Simple Queries: Yes: Moderately Impaired, Severely Impaired - Swallow Evaluation/Bedside Assessment Current Nutritional Intake: NPO Oral Secretions: Yes: WFL Dentition: Yes: Adequate Facial Symmetry at Rest: Symmetrical Jaw Position: Open at Rest Lingual Movement Strgth Against Opposition: Reduced Lingual Movement Characteristics: Jerky Laryngeal Elevation: Impaired Laryngeal Movement: Able to Palpate, Labored,delay initiation Rate of Intake: Impulsive Bolus Size: Large Oral Prep Time: Increased A-P Transit: Impaired (increased time) Timing of Swallow: Delayed Coughing/Throat Clear: Yes (honey thick from cup) Recommendations - Speech Evaluation, Impression/Plan Impression: Strong suspicion of intermittent aspiration sec impaired oral- pharyngeal coordination, impulsivity, speaking while eating, drinking. CXR's have been (-). Pt is a full code. - Dysphagia Impressions/Plan Swallowing Skills: Impaired Dysphagia Impressions: Moderate Impairment, Suspect Aspiration (intermittent) *Silent aspiration: cannot be R/O at bedside Dysphagia Treatment Plan: Small Bites, Clear Pocket Food, Trial Feedings, Facilitative Feeding, Safe Rate, 1/2 tsp. at a time, Elevate HOB during feed Recommendations: Modified Barium Swallow, Other (Tell pt to not speak and swallow quickly with head down) - Recommendations Diet Consistency: Dysphagia Pureed, Other (NPO if cough, congestion) Medication Administration: Crushed with applesauce Liquids: Honey Thick (ON TSP ONLY) Supplement: Magic Cup, Ensure Pudding
[2019-11-17 12:13] LABS: ALBUMIN 3.3 g/dl (3.4-5.0); BILIRUBIN,TOTAL 0.7 mg/dL (0.2-1); CALCIUM 9.1 mg/dL (8.5-10.1); CREATININE 0.8 mg/dL (0.55-1.3); MAGNESIUM 2.4 mg/dL (1.8-2.4); TOT PROT 6.7 g/dl (6.4-8.2)
--- NOTE | 2019-11-17 12:37 | CON.CARD ---
Consult Consult Specialty:: Cardiology Referred by:: Hospitalist Medicine Reason for Consultation:: Bradycardia - History of Present Illness Chief Complaint: Fever, aspiration History of Present Illness: 69 year-old female residing at [place] at [place] with PMH significant for Greenbrier's disease, anxiety, and depression admitted for fever 102.9, hypoxia 89%, tachycardia 119 and cough referable to aspiration PNA on dysphagia diet. Patient is non verbal and cannot provide history. Episode of unresponsiveness, HR 40s, transferred to telemetry, no events on telemetry, not cooperative with echo. 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 No: O2 Dependent ...: No - Alcohol/Substance Use Hx Alcohol Use: No - Smoking History Smoking history: Former smoker Have you smoked in the past 12 months: No Aproximately how many cigarettes per day: 20 If you are a former smoker, when did you quit?: 2013 Home Medications - Allergies Allergies/Adverse Reactions: Allergies Allergy/AdvReac Type Severity Reaction Status Date / Time lactose AdvReac Verified 06/08/19 01:48 - Home Medications Home Medications: Ambulatory Orders Atropine 1% Ophth. Solution - 1 drop PO TID 06/08/19 Calcium Carb/D3/Magnesium/Zinc [[place] Mag Zinc-D Tablet] 1 each PO DAILY 06/08/19 Citalopram Hydrobromide [Citalopram HBr] 40 mg PO DAILY 06/08/19 Clonazepam 0.5 mg PO TID 06/08/19 Glycopyrrolate 1 mg PO BID 06/08/19 Tetrabenazine [Xenazine] 25 mg PO TID 06/08/19 Vitamin B Complex 1 each PO DAILY 06/08/19 Zolpidem Tartrate [Ambien] 10 mg PO HS 06/08/19 Acetaminophen [Tylenol] 650 mg PO PRN PRN 11/13/19 Review of Systems Unable to obtain ROS, reason: Nonverbal Vital Signs: Vital Signs Temperature 98.3 F 11/17/19 06:00 Pulse Rate 85 11/17/19 06:00 Respiratory Rate 18 11/17/19 06:00 Blood Pressure 144/97 11/17/19 06:00 O2 Sat by Pulse Oximetry (%) 95 11/16/19 21:50 Constitutional: Yes: No Distress, Calm, Thin Neck: Yes: Supple Respiratory: Yes: Regular, CTA Bilaterally Gastrointestinal: Yes: Normal Bowel Sounds, Soft Cardiovascular: Yes: Regular Rate and Rhythm JVD: No Carotid Bruit: No Edema: No - Other Data Labs, Other Data: CBC, BMP 11/17/19 07:25 11/17/19 07:25 INR, PTT INR 1.29 (0.82-1.09) H 11/13/19 16:15 Troponin, BNP 11/16/19 11/16/19 17:36 23:43 Troponin I < 0.03 < 0.02 Troponin, BNP 11/16/19 11/16/19 17:36 23:43 Troponin I < 0.03 < 0.02 ECG NSR @ 70 PRWP Tele: NSR Ejection Fraction %: LVEF > or = 40 % Imaging - Results Chest X-ray: Report Reviewed (NAD) Cat Scan: Report Reviewed (HCT: Negative) Problem List - Problems (1) Aspiration pneumonia Code(s): J69.0 - PNEUMONITIS DUE TO INHALATION OF FOOD AND VOMIT (2) Vagal bradycardia Code(s): R00.1 - BRADYCARDIA, UNSPECIFIED (3) Anxiety and depression Code(s): F41.9 - ANXIETY DISORDER, UNSPECIFIED; F32.9 - MAJOR DEPRESSIVE DISORDER, SINGLE EPISODE, UNSPECIFIED (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 Bradycardia likely vasovagal due to cough, aspiration, mucous plugging 2. Aspiration PNA 3. Stvee's Disease 4. Anxiety/depression P:1. F/u echo results albeit technically limited, monitor on telemetry for recurrent bradycardia/pauses 2. Dysphagia puree honey thick diet per S&S, complete abx course, BD, O2 as needed 3. Continue glycopyrrolate, clonazepam, atropine solution PO (anticholinergic for secretions), tetrabenazine for Steve's Disease 4. DVT prophylaxis 5. Thank you for consultative opportunity
--- NOTE | 2019-11-17 15:03 | ECHO ---
Version: 1 Name: NEEL HARRISON Exam: Adult Echocardiogram Study Date: 11/17/2019, 12:23 PM Age: 69 Years Procedure The study was technically limited with all images being suboptimal in quality. No M mode measurement s available. Only view available was subcostal. Left Ventricle Due to the poor quality of the echocardiogram, an assessment of left ventricular ejection fraction c annot be made. Probably normal LV function in limited view. Tech Comments due to Steve chorae unable to complete study. . Summary Statements The study was technically limited with all images being suboptimal in quality. MD Martin Montaño 11/17/2019, 3:03 PM Ordering Physician: Geoffrey Nair Performed By: Gabriella Calvo
--- NOTE | 2019-11-17 16:50 | PN ---
Physical Exam: SUBJECTIVE: Patient seen and examined at the bedside. Moving in bed with choreiform movements. Denied acute complaints of cp, sob, abd pain, n/v/c/d, dizziness, lightheadedness, fevers, chills. OBJECTIVE: Vital Signs Period Temp Pulse Resp BP Sys/Wills Pulse Ox Last 24 Hr 97.8 F-98.9 F 68-95 16-18 112-150/62-97 95-95 GENERAL: The patient is awake, alert, and oriented to self, location, and month , in no acute distress. Poorly understood speech HEAD: Normal with no signs of trauma. EYES: pupilrs poorly reactive to light 5mm, extraocular movements intact, sclera anicteric, conjunctiva clear. ENT: Oropharynx clear without exudates, moist mucous membranes. LUNGS: Breath sounds equal, expiratory wheezes noted with bilateral crackles noted. HEART: Regular rate and rhythm, S1, S2 without murmur, rub. ABDOMEN: Soft, nontender, nondistended, normoactive bowel sounds, no guarding, no rebound, no masses. EXTREMITIES: 2+ pulses, warm, well-perfused, no edema. NEUROLOGICAL: Choreiform movements noted. SKIN: Warm, dry, normal turgor, no rashes or lesions noted Laboratory Results - last 24 hr 11/16/19 11/16/19 11/16/19 17:36 17:55 17:55 WBC 6.4 RBC 4.32 Hgb 12.5 Hct 37.9 MCV 87.9 MCH 29.0 MCHC 33.0 RDW 12.1 Plt Count 367 MPV 7.7 Absolute Neuts (auto) 4.0 Neutrophils % 63.2 Lymphocytes % 23.6 Monocytes % 8.7 Eosinophils % 4.0 Basophils % 0.5 Nucleated RBC % Sodium Potassium Chloride Carbon Dioxide Anion Gap BUN Creatinine Est GFR (CKD-EPI)AfAm Est GFR (CKD-EPI)NonAf Random Glucose Lactic Acid 0.8 Calcium Magnesium Total Bilirubin AST ALT Alkaline Phosphatase Troponin I < 0.03 Total Protein Albumin TSH 11/16/19 11/16/19 11/17/19 17:55 23:43 07:25 WBC 6.9 RBC 4.15 Hgb 12.2 Hct 35.7 MCV 86.0 MCH 29.3 MCHC 34.1 RDW 12.5 Plt Count 383 D MPV 7.2 L Absolute Neuts (auto) 4.5 Neutrophils % 66.1 Lymphocytes % 21.5 Monocytes % 6.4 Eosinophils % 5.2 H Basophils % 0.8 Nucleated RBC % 0 Sodium 137 Potassium 3.9 Chloride 100 Carbon Dioxide 28 Anion Gap 9 BUN 19.0 H Creatinine 0.9 Est GFR (CKD-EPI)AfAm 76.68 Est GFR (CKD-EPI)NonAf 66.16 Random Glucose 69 L Lactic Acid Calcium 9.1 Magnesium 2.2 Total Bilirubin 1.2 H AST 30 ALT 13 Alkaline Phosphatase 69 Troponin I < 0.02 Total Protein 6.4 Albumin 3.5 TSH 11/17/19 07:25 WBC RBC Hgb Hct MCV MCH MCHC RDW Plt Count MPV Absolute Neuts (auto) Neutrophils % Lymphocytes % Monocytes % Eosinophils % Basophils % Nucleated RBC % Sodium 140 Potassium 4.0 Chloride 106 Carbon Dioxide 26 Anion Gap 9 BUN 25.0 H Creatinine 0.8 Est GFR (CKD-EPI)AfAm 88.42 Est GFR (CKD-EPI)NonAf 76.29 Random Glucose 76 Lactic Acid Calcium 9.1 Magnesium 2.4 Total Bilirubin 0.7 AST 29 ALT 15 Alkaline Phosphatase 87 Troponin I Total Protein 6.7 Albumin 3.3 L TSH 0.56 Active Medications Generic Name Dose Route Start Last Admin Trade Name Freq PRN Reason Stop Dose Admin Acetaminophen 750 mg 11/13/19 18:30 11/17/19 15:04 Ofirmev Injection - IVPB 750 mg Q6H SAVANNAH Administration Albuterol/Ipratropium 1 amp 11/16/19 14:45 11/17/19 15:02 Duoneb - NEB 1 amp RTID SAVANNAH Administration Atropine Sulfate 1 drop 11/16/19 08:05 11/17/19 15:07 Atropine 1% Ophth. Solution - PO 1 drop TID SAVANNAH Administration Citalopram Hydrobromide 40 mg 11/14/19 10:00 11/17/19 10:00 Celexa - PO 40 mg DAILY SAVANNAH Administration Clonazepam 0.5 mg 11/13/19 22:00 11/17/19 15:04 Klonopin - PO 0.5 mg TID SAVANNAH Administration Enoxaparin Sodium 40 mg 11/14/19 10:00 11/17/19 10:05 Lovenox - SQ 40 mg DAILY SAVANNAH Administration Glycopyrrolate 1 mg 11/13/19 22:00 11/17/19 10:49 Robinul - PO Not Given BID SAVANNAH Piperacillin Sod/Tazobactam 50 mls @ 100 mls/hr 11/15/19 10:15 11/17/19 10:07 Sod 3.375 gm/ Dextrose IVPB 100 mls/hr Q8H-IV SAVANNAH Administration Protocol Multivitamins 1 each 11/14/19 10:00 11/17/19 10:04 Total B With C - PO 1 each DAILY SAVANNAH Administration (Tetrabenazine [ 50 mg 11/15/19 17:30 11/16/19 18:06 Xenazine] 25 Mg) PO 50 mg DAILY@1700 SAVANNAH Administration (Tetrabenazine [ 25 mg 11/16/19 09:00 11/17/19 15:09 Xenazine] 25 Mg) PO 25 mg 0900,1200 SAVANNAH Administration Sodium Chloride 1,500 ml 11/13/19 16:30 11/16/19 18:02 Normal Saline - IV 1,500 ml ONCE SAVANNAH Administration ASSESSMENT/PLAN: Winsome Vega is a 69 year old female with a past medical history of Steve 's disease, anxiety, and depression admitted for fever likely secondary to aspiration pneumonitis. Fever likely secondary to aspiration pneumonitis - has remained afebrile since original admission fevers, no leukocytosis - CXR clear - high risk for aspiration pneumonitis; Zosyn - IV Tylenol for fever - duonebs TID - speech and swallow consulted, recommended dysphagia diet with honey thick liquids on a spoon to prevent aspiration Bradycardia - cardiology consulted, recs appreciated - likely vagal secondary to aspiration, coughing, or mucus plug as per cardiology - continue to monitor on telemetry - echocardiogram poor study - CT to rule out alternative causes did not show any acute pathology Hungtinton's Disease - continue glycopyrrolate, clonazepam, atropine solution PO (anticholinergic for secretions), tetrabenazine - follow up with her neurologist outpatient Anxiety/depression - continue Celexa FEN - no standing fluids, encourage safe PO intake - continue to monitor electrolytes and replete as necessary - dysphagia puree honey thick liquids on spoon only, crush meds DVT prophylaxis - lovenox 40mg subq daily Dispo - continue to monitor on telemetry - can dc in 24 to 48 hours if no acute events occur Visit type - Emergency Visit Emergency Visit: Yes ED Registration Date: 11/13/19 Care time: The patient presented to the Emergency Department on the above date and was hospitalized for further evaluation of their emergent condition. - New Patient This patient is new to me today: Yes Date on this admission: 11/17/19 - Critical Care Critical Care patient: No
--- NOTE | 2019-11-17 17:08 | PN ---
Teaching Attending Note Name of Resident: Geoffrey Nair ATTENDING PHYSICIAN STATEMENT I saw and evaluated the patient. I reviewed the resident's note and discussed the case with the resident. I agree with the resident's findings and plan as documented with exceptions below. SUBJECTIVE: Patient seen and examined. no complaints, aide at bedside. OBJECTIVE: Vital Signs Period Temp Pulse Resp BP Sys/Wills Pulse Ox Last 24 Hr 97.8 F-98.9 F 68-95 16-18 112-150/62-97 95-95 Intake & Output 11/14/19 11/15/19 11/16/19 11/17/19 23:59 23:59 23:59 23:59 Intake Total 750 225 450 280 Balance 750 225 450 280 Weight 114 lb General: in bed, no acute distress chest: coarse rales bilaterally Abdomen:Soft, NT extremities: Chorea movements Home Medications Medication Instructions Recorded Atropine 1% Ophth. Solution - 1 drop PO TID 06/08/19 Calcium Carb/D3/Magnesium/Zinc 1 each PO DAILY 06/08/19 [[place] Mag Zinc-D Tablet] Citalopram Hydrobromide 40 mg PO DAILY 06/08/19 [Citalopram HBr] Clonazepam 0.5 mg PO TID 06/08/19 Glycopyrrolate 1 mg PO BID 06/08/19 Tetrabenazine [Xenazine] 25 mg PO TID 06/08/19 Vitamin B Complex 1 each PO DAILY 06/08/19 Zolpidem Tartrate [Ambien] 10 mg PO HS 06/08/19 Acetaminophen [Tylenol] 650 mg PO PRN PRN 11/13/19 Active Medications Acetaminophen (Ofirmev Injection -) 750 mg IVPB Q6H [facility] Last Admin: 11/17/19 15:04 Dose: 750 mg Albuterol/Ipratropium (Duoneb -) 1 amp NEB RTID [facility] Last Admin: 11/17/19 15:02 Dose: 1 amp Atropine Sulfate (Atropine 1% Ophth. Solution -) 1 drop PO TID [facility] Last Admin: 11/17/19 15:07 Dose: 1 drop Citalopram Hydrobromide (Celexa -) 40 mg PO DAILY [facility] Last Admin: 11/17/19 10:00 Dose: 40 mg Clonazepam (Klonopin -) 0.5 mg PO TID [facility] Last Admin: 11/17/19 15:04 Dose: 0.5 mg Enoxaparin Sodium (Lovenox -) 40 mg SQ DAILY S[facility]ANNA[facility] Last Admin: 11/17/19 10:05 Dose: 40 mg Glycopyrrolate (Robinul -) 1 mg PO BID [facility] Last Admin: 11/17/19 10:49 Dose: Not Given Piperacillin Sod/Tazobactam (Sod 3.375 gm/ Dextrose) 50 mls @ 100 mls/hr IVPB Q8H-IV SAVANNAH; Protocol Last Admin: 11/17/19 10:07 Dose: 100 mls/hr Multivitamins (Total B With C -) 1 each PO DAILY [facility] Last Admin: 11/17/19 10:04 Dose: 1 each (Tetrabenazine [ (Xenazine] 25 Mg)) 50 mg PO DAILY@1700 [facility] Last Admin: 11/16/19 18:06 Dose: 50 mg (Tetrabenazine [ (Xenazine] 25 Mg)) 25 mg PO 0900,1200 [facility] Last Admin: 11/17/19 15:09 Dose: 25 mg Sodium Chloride (Normal Saline -) 1,500 ml IV ONCE SAVANNAH Last Admin: 11/16/19 18:02 Dose: 1,500 ml Laboratory Results - last 24 hr 11/16/19 11/16/19 11/16/19 17:36 17:55 17:55 WBC 6.4 RBC 4.32 Hgb 12.5 Hct 37.9 MCV 87.9 MCH 29.0 MCHC 33.0 RDW 12.1 Plt Count 367 MPV 7.7 Absolute Neuts (auto) 4.0 Neutrophils % 63.2 Lymphocytes % 23.6 Monocytes % 8.7 Eosinophils % 4.0 Basophils % 0.5 Nucleated RBC % Sodium Potassium Chloride Carbon Dioxide Anion Gap BUN Creatinine Est GFR (CKD-EPI)AfAm Est GFR (CKD-EPI)NonAf Random Glucose Lactic Acid 0.8 Calcium Magnesium Total Bilirubin AST ALT Alkaline Phosphatase Troponin I < 0.03 Total Protein Albumin TSH 11/16/19 11/16/19 11/17/19 17:55 23:43 07:25 WBC 6.9 RBC 4.15 Hgb 12.2 Hct 35.7 MCV 86.0 MCH 29.3 MCHC 34.1 RDW 12.5 Plt Count 383 D MPV 7.2 L Absolute Neuts (auto) 4.5 Neutrophils % 66.1 Lymphocytes % 21.5 Monocytes % 6.4 Eosinophils % 5.2 H Basophils % 0.8 Nucleated RBC % 0 Sodium 137 Potassium 3.9 Chloride 100 Carbon Dioxide 28 Anion Gap 9 BUN 19.0 H Creatinine 0.9 Est GFR (CKD-EPI)AfAm 76.68 Est GFR (CKD-EPI)NonAf 66.16 Random Glucose 69 L Lactic Acid Calcium 9.1 Magnesium 2.2 Total Bilirubin 1.2 H AST 30 ALT 13 Alkaline Phosphatase 69 Troponin I < 0.02 Total Protein 6.4 Albumin 3.5 TSH 11/17/19 07:25 WBC RBC Hgb Hct MCV MCH MCHC RDW Plt Count MPV Absolute Neuts (auto) Neutrophils % Lymphocytes % Monocytes % Eosinophils % Basophils % Nucleated RBC % Sodium 140 Potassium 4.0 Chloride 106 Carbon Dioxide 26 Anion Gap 9 BUN 25.0 H Creatinine 0.8 Est GFR (CKD-EPI)AfAm 88.42 Est GFR (CKD-EPI)NonAf 76.29 Random Glucose 76 Lactic Acid Calcium 9.1 Magnesium 2.4 Total Bilirubin 0.7 AST 29 ALT 15 Alkaline Phosphatase 87 Troponin I Total Protein 6.7 Albumin 3.3 L TSH 0.56 Microbiology 11/13/19 16:25 Blood - Peripheral Venous Blood Culture - Preliminary NO GROWTH OBTAINED AFTER 96 HOURS, INCUBATION TO CONTINUE FOR 1 DAYS. 11/13/19 16:15 Blood - Peripheral Venous Blood Culture - Preliminary NO GROWTH OBTAINED AFTER 96 HOURS, INCUBATION TO CONTINUE FOR 1 DAYS. 11/13/19 20:15 Urine - Urine - Catheterized Urine Culture - Final NO GROWTH OBTAINED ASSESSMENT AND PLAN: 69 yof with PMHx of Poplar's disease, anxiety, depression, admitted to [facility] with fevers, coughs suspicious for aspiration pneumonitis, transferred to [facility] after an episode of unresponsiveness/bradycardia. -Bradycardia, suspect vasovagal from aspiration/cough -Suspected aspiration pneumonitis vs PNA -Poplar's disease -Anxiety -Depression Plan; No events on telemetry. cardiology input noted. Speech/swallow eval noted. Dysphagia pureed diet with teaspoon and aspiration precautions, crush meds. Aspiration precautions. Zosyn, taper in 24 hours if afebrile, stable oxygenation and no concerns. Continue glycopyrrolate/citalopram/klonopin. DVTPPx lovenox Dispo back to Assisted living in 24-48 hours if no new concerns and disposition arranged.
[2019-11-17] MEDS: SODIUM CHLORIDE 0.9% 1000 ML INFUS.BAG IV SCH (18:42)
[2019-11-18] MEDS ORDERED: DEXTROSE 5%-WATER - 50 ML IVPB ONE (03:22)
[2019-11-18] MEDS ORDERED: PIPERACILLIN/TAZOBACTAM 3.375 GM VIAL IVPB ONE (03:22)
[2019-11-18] MEDS: ACETAMINOPHEN 1000 MG/100 ML VIAL (NON FORMULARY) IVPB SCH ×4 (03:25→18:10)
[2019-11-18] MEDS: PIPERACILLIN/TAZOB 3.375 GM 3.375 GM in DEXTROSE 5%-WATER - 50 ML IVPB SCH (03:26)
[2019-11-18] MEDS: clonazePAM 0.5 MG TABLET PO SCH ×3 (06:29→22:07)
[2019-11-18] MEDS: ATROPINE SO4 1% OPHTH SOLN 5 ML BOTTLE PO SCH ×4 (06:30→22:08)
[2019-11-18] MEDS: ALBUTEROL SO4 2.5/IPRATROPIUM 0.5 INH SOL 3 ML VIAL.NEB. NEB SCH ×3 (08:50→20:50)
[2019-11-18] MEDS: VITAMIN B COMPLEX W/C COMBO TABLET (FP) PO SCH (10:17)
[2019-11-18] MEDS: ENOXAPARIN NA (PORCINE) 40 MG/0.4 ML DISP.SYRIN SQ SCH (10:17)
[2019-11-18] MEDS: CITALOPRAM HYDROBROMIDE 20 MG TABLET (FP) PO SCH (10:17)
[2019-11-18] MEDS: TETRABENAZINE 25 MG PO SCH ×3 (10:18→18:10)
--- NOTE | 2019-11-18 10:19 | PN ---
Physical Exam: SUBJECTIVE: Patient seen and examined this am. No new complaints, no acute overnight events. OBJECTIVE: Vital Signs Period Temp Pulse Resp BP Sys/Wills Pulse Ox Last 24 Hr 97.4 F-98.9 F 67-82 18-20 112-154/66-95 95 GENERAL: A&Ox3, NAD, Poorly understood speech HEAD: NCAT EYES: EOMI ENT: MMM LUNGS: Rhonchi throughout HEART: Regular rate and rhythm, S1, S2 without murmur ABDOMEN: Soft, nontender, nondistended, + bowel sounds, no guarding EXTREMITIES: no edema NEUROLOGICAL: Choreiform movements SKIN: Warm, dry Laboratory Results - last 24 hr 11/17/19 07:25 Sodium 140 Potassium 4.0 Chloride 106 Carbon Dioxide 26 Anion Gap 9 BUN 25.0 H Creatinine 0.8 Est GFR (CKD-EPI)AfAm 88.42 Est GFR (CKD-EPI)NonAf 76.29 Random Glucose 76 Calcium 9.1 Magnesium 2.4 Total Bilirubin 0.7 AST 29 ALT 15 Alkaline Phosphatase 87 Total Protein 6.7 Albumin 3.3 L Microbiology 11/13/19 16:25 Blood - Peripheral Venous Blood Culture - Preliminary NO GROWTH OBTAINED AFTER 96 HOURS, INCUBATION TO CONTINUE FOR 1 DAYS. 11/13/19 16:15 Blood - Peripheral Venous Blood Culture - Preliminary NO GROWTH OBTAINED AFTER 96 HOURS, INCUBATION TO CONTINUE FOR 1 DAYS. 11/13/19 20:15 Urine - Urine - Catheterized Urine Culture - Final NO GROWTH OBTAINED Active Medications Acetaminophen (Ofirmev Injection -) 750 mg IVPB Q6H [facility] Last Admin: 11/18/19 06:28 Dose: Not Given Albuterol/Ipratropium (Duoneb -) 1 amp NEB RTID [facility] Last Admin: 11/18/19 08:50 Dose: 1 amp Amoxicillin/Clavulanate Potassium (Augmentin - 875mg Tablet) 1 tab PO BID@0800, 1730 [facility] Atropine Sulfate (Atropine 1% Ophth. Solution -) 1 drop PO TID [facility] Last Admin: 11/18/19 06:30 Dose: 1 drop Citalopram Hydrobromide (Celexa -) 40 mg PO DAILY [facility] Last Admin: 11/17/19 10:00 Dose: 40 mg Clonazepam (Klonopin -) 0.5 mg PO TID [facility] Last Admin: 11/18/19 06:29 Dose: 0.5 mg Enoxaparin Sodium (Lovenox -) 40 mg SQ DAILY [facility] Last Admin: 11/17/19 10:05 Dose: 40 mg Glycopyrrolate (Robinul -) 1 mg PO BID [facility] Last Admin: 11/17/19 22:43 Dose: 1 mg Multivitamins (Total B With C -) 1 each PO DAILY [facility] Last Admin: 11/17/19 10:04 Dose: 1 each (Tetrabenazine [ (Xenazine] 25 Mg)) 50 mg PO DAILY@1700 [facility] Last Admin: 11/17/19 18:48 Dose: Not Given (Tetrabenazine [ (Xenazine] 25 Mg)) 25 mg PO 0900,1200 [facility] Last Admin: 11/17/19 15:09 Dose: 25 mg Sodium Chloride (Normal Saline -) 1,500 ml IV ONCE [facility] Last Admin: 11/17/19 18:42 Dose: Not Given ASSESSMENT/PLAN: 69 y/o F with PMHx [place]'s disease, anxiety, and depression admitted for fever likely due to aspiration pneumonitis. #Fever - In the setting of possible aspiration pneumonitis - Remains afebrile, without leukocytosis - Completed 3 day course of Zosyn; Will start Augmentin PO - IV Tylenol PRN for fever - Duonebs TID #Bradycardia - likely vasovagal in the setting of aspiration vs mucus plugging - CT negative, Echocardiogram poor study - Telemetry - cardiology consulted, appreciate rec's #[place]'s Disease - continue glycopyrrolate, clonazepam, atropine solution PO, tetrabenazine #Anxiety/depression - continue Celexa #FEN - PO Fluids - Replete PRN - dysphagia puree honey thick liquids on spoon only, crush meds as per S&S #PPx - DVT: lovenox Dispo: Tele monitor, likely to DC in 24 hours Visit type - Emergency Visit Emergency Visit: Yes ED Registration Date: 11/13/19 Care time: The patient presented to the Emergency Department on the above date and was hospitalized for further evaluation of their emergent condition. - New Patient This patient is new to me today: Yes Date on this admission: 11/18/19 - Critical Care Critical Care patient: No ATTENDING PHYSICIAN STATEMENT I saw and evaluated the patient. I reviewed the resident's note and discussed the case with the resident. I agree with the resident's findings and plan as documented. SUBJECTIVE: OBJECTIVE: ASSESSMENT AND PLAN:
--- NOTE | 2019-11-18 10:34 | PN ---
Teaching Attending Note Name of Resident: Meseret Saenz ATTENDING PHYSICIAN STATEMENT I saw and evaluated the patient. I reviewed the resident's note and discussed the case with the resident. I agree with the resident's findings and plan as documented with exceptions below. SUBJECTIVE: Patient seen and examined. no complaints. OBJECTIVE: Vital Signs Period Temp Pulse Resp BP Sys/Wills Pulse Ox Last 24 Hr 97.4 F-98.9 F 67-82 18-20 112-154/66-95 95 Intake & Output 11/15/19 11/16/19 11/17/19 11/18/19 23:59 23:59 23:59 23:59 Intake Total 225 450 380 50 Balance 225 450 380 50 Weight 114 lb General: lying in bed, no acute distress Neck soft Chest: improved air entry, no coarse rales appreciated currently Abdomen:soft, NT Extremities: no edema Neuro: Chorea movements Home Medications Medication Instructions Recorded Atropine 1% Ophth. Solution - 1 drop PO TID 06/08/19 Calcium Carb/D3/Magnesium/Zinc 1 each PO DAILY 06/08/19 [[place] Mag Zinc-D Tablet] Citalopram Hydrobromide 40 mg PO DAILY 06/08/19 [Citalopram HBr] Clonazepam 0.5 mg PO TID 06/08/19 Glycopyrrolate 1 mg PO BID 06/08/19 Tetrabenazine [Xenazine] 25 mg PO TID 06/08/19 Vitamin B Complex 1 each PO DAILY 06/08/19 Zolpidem Tartrate [Ambien] 10 mg PO HS 06/08/19 Acetaminophen [Tylenol] 650 mg PO PRN PRN 11/13/19 Active Medications Acetaminophen (Ofirmev Injection -) 750 mg IVPB Q6H [facility] Last Admin: 11/18/19 06:28 Dose: Not Given Albuterol/Ipratropium (Duoneb -) 1 amp NEB RTID [facility] Last Admin: 11/18/19 08:50 Dose: 1 amp Amoxicillin/Clavulanate Potassium (Augmentin - 875mg Tablet) 1 tab PO BID@0800, 1730 [facility] Atropine Sulfate (Atropine 1% Ophth. Solution -) 1 drop PO TID [facility] Last Admin: 11/18/19 06:30 Dose: 1 drop Citalopram Hydrobromide (Celexa -) 40 mg PO DAILY [facility] Last Admin: 11/18/19 10:17 Dose: 40 mg Clonazepam (Klonopin -) 0.5 mg PO TID [facility] Last Admin: 11/18/19 06:29 Dose: 0.5 mg Enoxaparin Sodium (Lovenox -) 40 mg SQ DAILY [facility] Last Admin: 11/18/19 10:17 Dose: 40 mg Glycopyrrolate (Robinul -) 1 mg PO BID [facility] Last Admin: 11/17/19 22:43 Dose: 1 mg Multivitamins (Total B With C -) 1 each PO DAILY [facility] Last Admin: 11/18/19 10:17 Dose: 1 each (Tetrabenazine [ (Xenazine] 25 Mg)) 50 mg PO DAILY@1700 [facility] Last Admin: 11/17/19 18:48 Dose: Not Given (Tetrabenazine [ (Xenazine] 25 Mg)) 25 mg PO 0900,1200 [facility] Last Admin: 11/18/19 10:18 Dose: 25 mg Sodium Chloride (Normal Saline -) 1,500 ml IV ONCE [facility] Last Admin: 11/17/19 18:42 Dose: Not Given Laboratory Results - last 24 hr 11/17/19 07:25 Sodium 140 Potassium 4.0 Chloride 106 Carbon Dioxide 26 Anion Gap 9 BUN 25.0 H Creatinine 0.8 Est GFR (CKD-EPI)AfAm 88.42 Est GFR (CKD-EPI)NonAf 76.29 Random Glucose 76 Calcium 9.1 Magnesium 2.4 Total Bilirubin 0.7 AST 29 ALT 15 Alkaline Phosphatase 87 Total Protein 6.7 Albumin 3.3 L Microbiology 11/13/19 16:25 Blood - Peripheral Venous Blood Culture - Preliminary NO GROWTH OBTAINED AFTER 96 HOURS, INCUBATION TO CONTINUE FOR 1 DAYS. 11/13/19 16:15 Blood - Peripheral Venous Blood Culture - Preliminary NO GROWTH OBTAINED AFTER 96 HOURS, INCUBATION TO CONTINUE FOR 1 DAYS. 11/13/19 20:15 Urine - Urine - Catheterized Urine Culture - Final NO GROWTH OBTAINED ASSESSMENT AND PLAN: 69 yof with PMHx of [place]'s disease, anxiety, depression, admitted to [facility] with fevers, coughs suspicious for aspiration pneumonitis, transferred to [facility] after an episode of unresponsiveness/bradycardia. 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 cardiology input noted. Speech/swallow eval noted. Dysphagia pureed diet with teaspoon and aspiration precautions, crush meds. Aspiration precautions. Improved lung exam. Afebrile, normal WBC. D/c zosyn, change to augmentin for 5-7 days. Continue glycopyrrolate/citalopram/klonopin. DVTPPx lovenox Dispo back to Assisted living in 24 hours if no new concerns and disposition arranged.
[2019-11-18] MEDS ORDERED: PT OWN MED DRAWER 7, Y5N ONE (11:03)
[2019-11-18] MEDS: GLYCOPYRROLATE 1 MG TABLET PO SCH ×2 (12:47→22:07)
--- NOTE | 2019-11-18 13:23 | PN ---
Progress Note, Physician Chief Complaint: Pt alert; agitated. History of Present Illness: 69 year-old female residing at [facility] [place] with PMH significant for [place]'s disease, anxiety, and depression admitted for fever 102.9, hypoxia 89%, tachycardia 119 and cough referable to aspiration PNA on dysphagia diet. Patient is non verbal and cannot provide history. Episode of unresponsiveness, HR 40s, transferred to telemetry, no events on telemetry, not cooperative with echo. - Current Medication List Current Medications: Active Medications Acetaminophen (Ofirmev Injection -) 750 mg IVPB Q6H [facility] Last Admin: 11/18/19 12:46 Dose: 750 mg Albuterol/Ipratropium (Duoneb -) 1 amp NEB RTID [facility] Last Admin: 11/18/19 08:50 Dose: 1 amp Amoxicillin/Clavulanate Potassium (Augmentin - 875mg Tablet) 1 tab PO BID@0800, 1730 [facility] Atropine Sulfate (Atropine 1% Ophth. Solution -) 1 drop PO TID [facility] Last Admin: 11/18/19 13:12 Dose: 1 drop Citalopram Hydrobromide (Celexa -) 40 mg PO DAILY [facility] Last Admin: 11/18/19 10:17 Dose: 40 mg Clonazepam (Klonopin -) 0.5 mg PO TID [facility] Last Admin: 11/18/19 13:12 Dose: 0.5 mg Enoxaparin Sodium (Lovenox -) 40 mg SQ DAILY [facility] Last Admin: 11/18/19 10:17 Dose: 40 mg Glycopyrrolate (Robinul -) 1 mg PO BID [facility] Last Admin: 11/18/19 12:47 Dose: 1 mg Multivitamins (Total B With C -) 1 each PO DAILY [facility] Last Admin: 11/18/19 10:17 Dose: 1 each (Tetrabenazine [ (Xenazine] 25 Mg)) 50 mg PO DAILY@1700 [facility] Last Admin: 11/17/19 18:48 Dose: Not Given (Tetrabenazine [ (Xenazine] 25 Mg)) 25 mg PO 0900,1200 [facility] Last Admin: 11/18/19 12:47 Dose: 25 mg Sodium Chloride (Normal Saline -) 1,500 ml IV ONCE [facility] Last Admin: 11/17/19 18:42 Dose: Not Given - Objective Vital Signs: Vital Signs Temperature 98.8 F 11/18/19 10:00 Pulse Rate 89 11/18/19 10:00 Respiratory Rate 22 H 11/18/19 10:00 Blood Pressure 136/70 11/18/19 10:00 O2 Sat by Pulse Oximetry (%) 97 11/18/19 09:00 Constitutional: Yes: Anxious, Thin Eyes: Yes: WNL HENT: Yes: WNL Cardiovascular: Yes: S1, S2, S4 Respiratory: Yes: Diminished Gastrointestinal: Yes: Soft ...Rectal Exam: Yes: Deferred Genitourinary: No: Anuria Breast(s): Yes: WNL Musculoskeletal: Yes: Muscle Weakness Extremities: Yes: Cool Edema: No Peripheral Pulses WNL: Yes Integumentary: Yes: Venous Stasis Changes Neurological: Yes: Alert, Weakness ([place]'s) Psychiatric: Yes: Other Labs: CBC, BMP 11/17/19 07:25 11/17/19 07:25 INR, PTT INR 1.29 (0.82-1.09) H 11/13/19 16:15 Abnormal Lab Results 11/18/19 15:30 Total LDL Cholesterol 104 H - ....Imaging Chest X-ray: Image Reviewed Ultrasound: Report Reviewed (ECHO: probably NL LVEF (limited, suboptimal study)) EKG: Image Reviewed Problem List - Problems (1) Aspiration pneumonia Code(s): J69.0 - PNEUMONITIS DUE TO INHALATION OF FOOD AND VOMIT (2) Febrile illness, acute Code(s): R50.9 - FEVER, UNSPECIFIED (3) Vagal bradycardia Assessment/Plan: No further bradycardia recorded; period of brief atrial tachycardia. F/u on telemetry; consider AV conduction shaunna. Maintain electrolytes WNL. 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 (6) Urinary tract infection Code(s): N39.0 - URINARY TRACT INFECTION, SITE NOT SPECIFIED Qualifiers: Urinary tract infection type: acute cystitis Hematuria presence: without hematuria Qualified Code(s): N30.00 - Acute cystitis without hematuria (7) Fall Code(s): W19.XXXA - UNSPECIFIED FALL, INITIAL ENCOUNTER Qualifiers: Encounter type: initial encounter Qualified Code(s): W19.XXXA - Unspecified fall, initial encounter (8) Weakness Code(s): R53.1 - WEAKNESS (9) Aspiration into lower respiratory tract Code(s): T17.800A - UNSP FOREIGN BODY IN OTH PRT RESP TRACT CAUSING ASPHYX, INIT (10) Pneumonia Code(s): J18.9 - PNEUMONIA, UNSPECIFIED ORGANISM Qualifiers: Pneumonia type: due to unspecified organism Laterality: unspecified laterality Lung location: unspecified part of lung Qualified Code(s): J18.9 - Pneumonia, unspecified organism (11) Anxiety Code(s): F41.9 - ANXIETY DISORDER, UNSPECIFIED
[2019-11-18 16:26] LABS: CHOLESTEROL 173 mg/dL (50-200); HDL CHOLESTEROL 45 mg/dL (40-60); LDL CHOLESTEROL (ONLY SJRH) 104 mg/dL (5-100); TRIGLYCERIDES 129 mg/dL (0-150)
[2019-11-18] MEDS: AMOX TR/POT CLAV 875MG/125MG TABLETS (FP) PO SCH (18:09)
[2019-11-18] MEDS: SODIUM CHLORIDE 0.9% 1000 ML INFUS.BAG IV SCH (18:10)
[2019-11-19] MEDS: ACETAMINOPHEN 1000 MG/100 ML VIAL (NON FORMULARY) IVPB SCH ×3 (00:30→13:02)
[2019-11-19] MEDS: clonazePAM 0.5 MG TABLET PO SCH ×2 (06:40→14:53)
[2019-11-19] MEDS: ATROPINE SO4 1% OPHTH SOLN 5 ML BOTTLE PO SCH ×2 (06:41→13:09)
[2019-11-19] MEDS: ALBUTEROL SO4 2.5/IPRATROPIUM 0.5 INH SOL 3 ML VIAL.NEB. NEB SCH ×2 (09:10→15:09)
[2019-11-19] MEDS: CITALOPRAM HYDROBROMIDE 20 MG TABLET (FP) PO SCH (09:19)
[2019-11-19] MEDS: AMOX TR/POT CLAV 875MG/125MG TABLETS (FP) PO SCH (09:19)
[2019-11-19] MEDS: VITAMIN B COMPLEX W/C COMBO TABLET (FP) PO SCH (09:19)
[2019-11-19] MEDS: ENOXAPARIN NA (PORCINE) 40 MG/0.4 ML DISP.SYRIN SQ SCH (09:19)
[2019-11-19] MEDS: TETRABENAZINE 25 MG PO SCH ×2 (09:20→13:06)
[2019-11-19] MEDS: GLYCOPYRROLATE 1 MG TABLET PO SCH (10:00)
--- NOTE | 2019-11-19 10:01 | DS ---
Physical Exam: SUBJECTIVE: Patient seen and examined at the bedside. Choreiform movements in bed and poorly understood speech. Patient stated that she was doing better and denied any acute complaints of cp, sob, abd pain, n/v/c/d, fever, chills, headaches. OBJECTIVE: Vital Signs Period Temp Pulse Resp BP Sys/Wills Pulse Ox Last 24 Hr 97.5 F-98.3 F 71-87 20-22 121-140/53-96 97 PHYSICAL EXAM GENERAL: The patient is awake, alert, and oriented to self, location, and month , in no acute distress. Poorly understood speech HEAD: Normal with no signs of trauma. EYES: pupils poorly reactive to light 4mm, extraocular movements intact, sclera anicteric, conjunctiva clear. ENT: Oropharynx clear without exudates, moist mucous membranes. LUNGS: Breath sounds equal, mild bilateral crackles noted. HEART: Regular rate and rhythm, S1, S2 without murmur, rub. ABDOMEN: Soft, nontender, nondistended, normoactive bowel sounds, no guarding, no rebound, no masses. EXTREMITIES: 2+ pulses, warm, well-perfused, no edema. NEUROLOGICAL: Choreiform movements noted. SKIN: Warm, dry, normal turgor, no rashes or lesions noted LABS Laboratory Results - last 24 hr 11/18/19 15:30 Triglycerides 129 Cholesterol 173 Total LDL Cholesterol 104 H HDL Cholesterol 45 HOSPITAL COURSE: Winsome Vega is a 69 year old female with a past medical history of Anthony 's disease, anxiety, and depression admitted for fever likely secondary to aspiration pneumonitis. Patient was admitted with fevers and started on Zosyn which was subsequently switched to Augmentin by day of discharge. Patient had remained afebrile during the hospital course. During hospitalization, patient had developed bradycardia into the 40s and was transferred from [place] to [facility]. Patient was monitored on telemetry and there were no acute events on monitor. Patient was seen by cardiology and noted that the episode was likely vasovagal in the setting of aspiration vs mucus plugging. Patient was seen by speech and swallow who recommended dysphagia puree honey thick liquids on spoon only, crush meds, eat slowly, chew food completely, swallow before taking new bites, elevated HOB while eating. Patient to return to her Assisted Living and to follow up with her PCP, cardiology, and speech and swallow. Patient was discharged in stable medical condition. Date of Admission:11/13/19 Date of Discharge: 11/19/19 Minutes to complete discharge: 36 Discharge Summary Problems reviewed: Yes Reason For Visit: ACUTE FEBRILE ILLNESS Current Active Problems Anxiety (Chronic) Condition: Stable - Instructions Diet, Activity, Other Instructions: You were admitted for fevers which were likely due to aspiration of food. You were started on antibiotics which you will continue to take once you leave the hospital. You were seen by the speech and swallow therapist who recommended that you continue your dysphagia diet with honey thick liquids only on a spoon, eat slowly, keep your head elevated, sit up when eating, and complete swallowing before taking the next bite. [facility] [place] when it was noted that your heart rate was low. You were monitored on the cardiac floor where you did not have any further events of low heart rate. You were seen by a central office inspector (heart doctor) who stated that your low heart rate was likely due to another episode of aspiration. MEDICATIONS START to take Augmentin 875mg twice a day for 4 more days. Continue to take all of your other home medications as prescribed. REFERRALS Please see your primary care doctor within 1 week. Please follow up with the central office inspector, Dr. Ta Vang, within 1 week. Please follow up with the speech and swallow therapist, Calista Zuñiga, for a modified barium swallow test. SPECIAL INSTRUCTIONS Be sure to be careful when you eat, eat slowly, take small bites, finish swallowing before taking another bite. Eat ONLY FROM A SPOON in small quantities. 1: 1 assist when eating. Make sure to crush all medications before taking them. Keep your body elevated and upright when eating and atleast for 90 minutes after eating. If you have any symptoms of fevers, chest pain, shortness of breath, worsening cough, or any other general feelings of unwellness, please call 911 or go to your nearest emergency room. Referrals: Calista Zuñiga MS, [facility] [Speech Therapist] - 2 Weeks Ta Vang MD [Staff Physician] - 1 Week Disposition: HOME - Home Medications Comprehensive Discharge Medication List: Ambulatory Orders Atropine 1% Ophth. Solution - 1 drop PO TID 06/08/19 Calcium Carb/D3/Magnesium/Zinc [[place] Mag Zinc-D Tablet] 1 each PO DAILY 06/08/19 Citalopram Hydrobromide [Citalopram HBr] 40 mg PO DAILY 06/08/19 Clonazepam 0.5 mg PO TID 06/08/19 Glycopyrrolate 1 mg PO BID 06/08/19 Tetrabenazine [Xenazine] 25 mg PO TID 06/08/19 Vitamin B Complex 1 each PO DAILY 06/08/19 Zolpidem Tartrate [Ambien] 10 mg PO HS 06/08/19 Acetaminophen [Tylenol] 650 mg PO PRN PRN 11/13/19 Amox-Tr/K Cl [Augmentin 875-125mg Tablet -] 1 tab PO BID@0800,1730 #12 tablet Problem List - Problems (1) Anxiety Code(s): F41.9 - ANXIETY DISORDER, UNSPECIFIED (2) Aspiration pneumonia Code(s): J69.0 - PNEUMONITIS DUE TO INHALATION OF FOOD AND VOMIT (3) Febrile illness, acute Code(s): R50.9 - FEVER, UNSPECIFIED (4) Vagal bradycardia Code(s): R00.1 - BRADYCARDIA, UNSPECIFIED (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 Critical Care patient: No - Discharge Referral Referred to [facility] Med P.C.: No
--- NOTE | 2019-11-19 10:31 | EKG ---
Test Reason : Blood Pressure : / mmHG Vent. Rate : 070 BPM Atrial Rate : 070 BPM P-R Int : 178 ms QRS Dur : 058 ms QT Int : 438 ms P-R-T Axes : 039 001 018 degrees QTc Int : 473 ms NORMAL SINUS RHYTHM LOW VOLTAGE QRS CANNOT RULE OUT ANTEROSEPTAL INFARCT (CITED ON OR BEFORE 29-NOV-2017) ABNORMAL ECG WHEN COMPARED WITH ECG OF 13-NOV-2019 16:34, ST NOW DEPRESSED IN ANTERIOR LEADS NONSPECIFIC T WAVE ABNORMALITY NOW EVIDENT IN INFERIOR LEADS Confirmed by HAZEL DOVE, OMER ([id number]) on 11/19/2019 10:30:57 AM Referred By: CHUYITA VARELA Confirmed By:OMER OLIVA MD
[2019-11-19 10:58] VITALS: BP 151/74; PULSE 76; TEMP 97.8
--- NOTE | 2019-11-19 10:58 | PN ---
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 CXR's have been (-) . Pt is a full code. Small Bites, Clear Pocket Food, Trial Feedings, Facilitative Feeding, Safe Rate , 1/2 tsp. 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 In future, Modified Barium Swallow, as indicated
--- NOTE | 2019-11-19 11:21 | PN ---
Teaching Attending Note Name of Resident: Geoffrey Nair ATTENDING PHYSICIAN STATEMENT I saw and evaluated the patient. I reviewed the resident's note and discussed the case with the resident. I agree with the resident's findings and plan as documented with exceptions below. SUBJECTIVE: Patient seen and examined. No complaints, doing well. OBJECTIVE: Vital Signs Period Temp Pulse Resp BP Sys/Wills Pulse Ox Last 24 Hr 97.5 F-98.3 F 71-87 18-22 121-151/53-96 97 Intake & Output 11/16/19 11/17/19 11/18/19 11/19/19 23:59 23:59 23:59 23:59 Intake Total 450 380 210 200 Balance 450 380 210 200 Weight 114 lb General: lying in bed, no acute distress Chest: good air entry, no rales or wheezing noted Abdomen:Soft, NT Extremities: no edema, chorea movements Home Medications Medication Instructions Recorded Atropine 1% Ophth. Solution - 1 drop PO TID 06/08/19 Calcium Carb/D3/Magnesium/Zinc 1 each PO DAILY 06/08/19 [Ebthel Mag Zinc-D Tablet] Citalopram Hydrobromide 40 mg PO DAILY 06/08/19 [Citalopram HBr] Clonazepam 0.5 mg PO TID 06/08/19 Glycopyrrolate 1 mg PO BID 06/08/19 Tetrabenazine [Xenazine] 25 mg PO TID 06/08/19 Vitamin B Complex 1 each PO DAILY 06/08/19 Zolpidem Tartrate [Ambien] 10 mg PO HS 06/08/19 Acetaminophen [Tylenol] 650 mg PO PRN PRN 11/13/19 Amoxicillin/Potassium Clav 1 each PO BID #8 tablet 11/19/19 [Augmentin 875-125 Tablet] Active Medications Acetaminophen (Ofirmev Injection -) 750 mg IVPB Q6H [facility] Last Admin: 11/19/19 06:36 Dose: Not Given Albuterol/Ipratropium (Duoneb -) 1 amp NEB RTID [facility] Last Admin: 11/19/19 09:10 Dose: 1 amp Amoxicillin/Clavulanate Potassium (Augmentin - 875mg Tablet) 1 tab PO BID@0800, 1730 [facility] Last Admin: 11/19/19 09:19 Dose: 1 tab Atropine Sulfate (Atropine 1% Ophth. Solution -) 1 drop PO TID [facility] Last Admin: 11/19/19 06:41 Dose: 1 drop Citalopram Hydrobromide (Celexa -) 40 mg PO DAILY [facility] Last Admin: 11/19/19 09:19 Dose: 40 mg Clonazepam (Klonopin -) 0.5 mg PO TID [facility] Last Admin: 11/19/19 06:40 Dose: 0.5 mg Enoxaparin Sodium (Lovenox -) 40 mg SQ DAILY [facility] Last Admin: 11/19/19 09:19 Dose: 40 mg Glycopyrrolate (Robinul -) 1 mg PO BID [facility] Last Admin: 11/18/19 22:07 Dose: 1 mg Multivitamins (Total B With C -) 1 each PO DAILY [facility] Last Admin: 11/19/19 09:19 Dose: 1 each (Tetrabenazine [ (Xenazine] 25 Mg)) 50 mg PO DAILY@1700 [facility] Last Admin: 11/18/19 18:10 Dose: Not Given (Tetrabenazine [ (Xenazine] 25 Mg)) 25 mg PO 0900,1200 [facility] Last Admin: 11/19/19 09:20 Dose: 25 mg Sodium Chloride (Normal Saline -) 1,500 ml IV ONCE [facility] Last Admin: 11/18/19 18:10 Dose: Not Given Laboratory Results - last 24 hr 11/18/19 15:30 Triglycerides 129 Cholesterol 173 Total LDL Cholesterol 104 H HDL Cholesterol 45 telemetry: no episodes of bradycardia ASSESSMENT AND PLAN: 69 yof with PMHx of [place]'s disease, anxiety, depression, admitted to [place] with fevers, coughs suspicious for aspiration pneumonitis, transferred to [facility] after an episode of unresponsiveness/bradycardia. -Bradycardia, suspect vasovagal from aspiration/cough -Suspected aspiration pneumonitis vs PNA -[place]'s disease -Anxiety -Depression Plan; No events on telemetry. cardiology input noted. Speech/swallow eval noted. Dysphagia pureed diet with teaspoon and aspiration precautions, crush meds. Aspiration precautions. Improved lung exam. Afebrile, normal WBC. D/c zosyn, change to augmentin for total 5 more adys Continue glycopyrrolate/citalopram/klonopin. DVTPPx lovenox Dispo back to Assisted living today with outpatient speech/swallow and neurology follow up Discussed with patient and social work.
--- NOTE | 2019-11-19 11:43 | PN ---
Progress Note, Physician History of Present Illness: No events on telemetry, afebrile w/o cough, active aspiration, dyspnea, hypoxia. - Current Medication List Current Medications: Active Medications Acetaminophen (Ofirmev Injection -) 750 mg IVPB Q6H [facility] Last Admin: 11/19/19 06:36 Dose: Not Given Albuterol/Ipratropium (Duoneb -) 1 amp NEB RTID [facility] Last Admin: 11/19/19 09:10 Dose: 1 amp Amoxicillin/Clavulanate Potassium (Augmentin - 875mg Tablet) 1 tab PO BID@0800, 1730 [facility] Last Admin: 11/19/19 09:19 Dose: 1 tab Atropine Sulfate (Atropine 1% Ophth. Solution -) 1 drop PO TID [facility] Last Admin: 11/19/19 06:41 Dose: 1 drop Citalopram Hydrobromide (Celexa -) 40 mg PO DAILY [facility] Last Admin: 11/19/19 09:19 Dose: 40 mg Clonazepam (Klonopin -) 0.5 mg PO TID [facility] Last Admin: 11/19/19 06:40 Dose: 0.5 mg Enoxaparin Sodium (Lovenox -) 40 mg SQ DAILY [facility] Last Admin: 11/19/19 09:19 Dose: 40 mg Glycopyrrolate (Robinul -) 1 mg PO BID [facility] Last Admin: 11/18/19 22:07 Dose: 1 mg Multivitamins (Total B With C -) 1 each PO DAILY [facility] Last Admin: 11/19/19 09:19 Dose: 1 each (Tetrabenazine [ (Xenazine] 25 Mg)) 50 mg PO DAILY@1700 [facility] Last Admin: 11/18/19 18:10 Dose: Not Given (Tetrabenazine [ (Xenazine] 25 Mg)) 25 mg PO 0900,1200 [facility] Last Admin: 11/19/19 09:20 Dose: 25 mg Sodium Chloride (Normal Saline -) 1,500 ml IV ONCE [facility] Last Admin: 11/18/19 18:10 Dose: Not Given - Objective Vital Signs: Vital Signs Temperature 97.8 F 11/19/19 10:00 Pulse Rate 76 11/19/19 10:00 Respiratory Rate 18 11/19/19 10:00 Blood Pressure 151/74 11/19/19 10:00 O2 Sat by Pulse Oximetry (%) 97 12/25/19 20:27 Constitutional: Yes: No Distress, Calm, Thin Neck: Yes: Supple Cardiovascular: Yes: Regular Rate and Rhythm Respiratory: Yes: Regular, Diminished Gastrointestinal: Yes: Normal Bowel Sounds, Soft Edema: No Labs: CBC, BMP 11/17/19 07:25 11/17/19 07:25 INR, PTT INR 1.29 (0.82-1.09) H 11/13/19 16:15 - ....Imaging EKG: Report Reviewed (Tele: NSR w/o recurrent bradycardia or pauses) Problem List - Problems (1) Aspiration pneumonia Code(s): J69.0 - PNEUMONITIS DUE TO INHALATION OF FOOD AND VOMIT (2) Vagal bradycardia Code(s): R00.1 - BRADYCARDIA, UNSPECIFIED (3) Anxiety and depression Code(s): F41.9 - ANXIETY DISORDER, UNSPECIFIED; F32.9 - MAJOR DEPRESSIVE DISORDER, SINGLE EPISODE, UNSPECIFIED (4) [place] chorea Code(s): G10 - STEVE'S DISEASE (5) Aspiration into lower respiratory tract Code(s): T17.800A - UNSP FOREIGN BODY IN OTH PRT RESP TRACT CAUSING ASPHYX, INIT Assessment/Plan 11/17/2019: TDS, prob normal LV fxn 1. Bradycardia likely vasovagal due to cough, aspiration, mucous plugging 2. Aspiration PNA 3. Steve's Disease 4. Anxiety/depression P: 1. Dysphagia puree honey thick diet per S&S, complete abx course, BD, O2 as needed 2. Continue glycopyrrolate, clonazepam, atropine solution PO (anticholinergic for secretions), tetrabenazine for [place]'s Disease 3. DVT prophylaxis 4. D/c planning to [place], march d/c from [facility]-standpoint
--- NOTE | 2019-11-20 19:00 | CONS ---
INFECTIOUS DISEASE CONSULTATION DATE OF CONSULTATION: DATE OF DICTATION: 11/15/2019 HISTORY: The patient is a 69-year-old who is evaluated for fever. Patient was admitted to the hospital on November 13, 2019, with a 1-day history of fever and cough. 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 She is unable to offer any history. According to her health aide, she had developed productive cough and fever as well as decreased oral intake 1 day prior to admission. She was evaluated in the emergency room where her temperature was noted to be 102.9. Initial sepsis workup was unrevealing. She was empirically treated with Zosyn for possible aspiration pneumonia. At the present time, she is awake; however, she is unable to verbalize. She is supine in bed and thrashes her limbs when examined. She is in in no acute respiratory distress, and no cough is noted. She is a resident of a assisted facility. Her last hospitalization was in May 2019. PAST MEDICAL HISTORY: Positive for [place]'s Chorea, anxiety, and depression. ALLERGIES: LACTOSE. MEDICATIONS: At the present time include Tylenol, albuterol, Klonopin, Lovenox, Zosyn. SOCIAL HISTORY: She resides in a assisted facility. She is a former smoker. SYSTEMS REVIEW: Neurologic: Positive for Steve's Chorea. Cardiac: Negative cardiac arrhythmia. Respiratory: As per HPI. Gastrointestinal: Negative vomiting or diarrhea. Genitourinary: Negative for urinary tract infection. LABORATORY DATA: White count 4.9, 68 neutrophils, 18 lymphocytes, 9 monocytes, hematocrit 33.4, platelets 309, creatinine 0.7. Urinalysis 0-2 white cells. Influenza swab negative. Chest x-ray negative for acute infiltrate. Blood and urine cultures are pending. PHYSICAL EXAMINATION: General: She is awake. She is cachectic appearing. Thrashing in bed. Vital Signs: Temperature 98.3, blood pressure 122/74, pulse 75 regular, respirations 13 per minute. HEENT: Sclerae anicteric. Heart: Sounds S1, S2. Lungs: Grossly clear. Poor inspiratory effort. Abdomen: Soft. No tenderness elicited. No mass, rebound, or rigidity. Extremities: Negative for edema. IMPRESSION: 1. Fever, cough, rule out aspiration pneumonia. 2. History of [place]'s Chorea. PLAN: We will empirically cover for fdc-acquired pathogens in the setting of possible aspiration with Zosyn 3.375 g IV piggyback every 8 hours. Await culture results. Legionella and pneumococcal antigens. We will follow. Thank you for the kind referral. HECTOR FARRIS M.D. [id number]
== END 2019-11-19 17:52 | DRG 177 ==
LOC: FER 15:50 → FM/S 18:26 → J4W 11-16 21:37
PROVIDERS: ADMIT Internal Medicine; ATTEND Hospitalist
DX: J69.0 Pneumonitis due to inhalation of food and vomit (principal); R53.2 Functional quadriplegia; G10 Huntington's disease; R50.9 Fever, unspecified; F41.8 Other specified anxiety disorders; G47.00 Insomnia, unspecified; R00.1 Bradycardia, unspecified; R09.02 Hypoxemia; R00.0 Tachycardia, unspecified; J44.9 Chronic obstructive pulmonary disease, unspecified; Z87.891 Personal history of nicotine dependence
CPT/HCPCS: 36415; 70450-TC; 71045-TC-FY; 80053; 80061; 81003; 81015; 82550; 83605; 83721; 83735; 84443; 84484; 85025; 85610; 85730; 87040; 87086; 87804; 93005; 93306-TC; 94640; 97161-GP; 99283-25; J0131; J7030

== ENCOUNTER 2020-01-10 16:21 | Emergency (ER) | payer OTHER, BC ==
[2020-01-10 16:38] VITALS: BP 129/87; PULSE 77; TEMP 98.1; BMI 18.5
[2020-01-10] MEDS ORDERED: ACETAMINOPHEN 650 MG/20.3 ML ORAL SOLUTION (CUPS) PO ONE (16:53)
[2020-01-10] MEDS ORDERED: ACETAMINOPHEN 650 MG/20.3 ML ORAL SOLUTION (CUPS) ONE (17:03)
--- NOTE | 2020-01-10 18:18 | PDOC ---
Documentation entered by Ayde Talbot SCRIBE, acting as scribe for Carrington Segal MD. Carrington Segal MD: This documentation has been prepared by the darnellibeAntione Maria, SCRIBE, under my direction and personally reviewed by me in its entirety. I confirm that the documentation accurately reflects all work, treatment, procedures, and medical decision making performed by me. History of Present Illness - General Chief Complaint: Injury Stated Complaint: FALL Time Seen by Provider: 01/10/20 16:26 - History of Present Illness Initial Comments: 01/10/20 17:02 Patient is a 69 year old female with a significant past medical history of Holbrook's disease with associated severe dysarthria, anxiety, and depression who presents to the ED, via EMS from [facility] [place], s/p fall. As per [facility], the patient was trying to help herself get into the wheelchair when she fell and hit her head. Denies LOC. [facility] reports the patient complained that her head hurt and they noticed erythema to the right side of her head and was brought in for further evaluation. 01/10/20 17:28 Alert, no acute distress, speech is garbled and unintelligible, but no different than usual state. Constant movements associated with Holbrook's. Afebrile, vital signs normal Head: Minor contusion right forehead without abrasion or laceration, without hematoma, ecchymosis, depression or crepitus. PERRLA, fundi benign, ENT clear. Neck without point tenderness or deformity, good range of motion without demonstrable pain Chest clear. Breath sounds bilateral, symmetric. No chest wall or rib cage tenderness or deformity CV regular without murmur rub or gallop Abdomen soft nontender without mass organomegaly Spine and pelvis without deformity or tenderness Extremities without visible or palpable trauma. Full range of motion shoulders and hips without limitation, without apparent pain. Neurological: Cooperation limited but cranial nerves appear to be intact, moving all extremities without asymmetry. Strength appears symmetric. Bedridden and nonambulatory. Impression: Minor head injury, alert and without focal neurologic deficits that might suggest a significant intracranial injury. Plan: Tylenol, observe. Past History - Past Medical History Allergies/Adverse Reactions: Allergies Allergy/AdvReac Type Severity Reaction Status Date / Time lactose AdvReac Verified 06/08/19 01:48 Home Medications: Ambulatory Orders Atropine 1% Ophth. Solution - 1 drop PO TID 06/08/19 Calcium Carb/D3/Magnesium/Zinc [[place] Mag Zinc-D Tablet] 1 each PO DAILY 06/08/19 Citalopram Hydrobromide [Citalopram HBr] 40 mg PO DAILY 06/08/19 Clonazepam 0.5 mg PO TID 06/08/19 Glycopyrrolate 1 mg PO BID 06/08/19 Tetrabenazine [Xenazine] 25 mg PO TID 06/08/19 Vitamin B Complex 1 each PO DAILY 06/08/19 Zolpidem Tartrate [Ambien] 10 mg PO HS 06/08/19 Acetaminophen [Tylenol] 650 mg PO PRN PRN 11/13/19 Amoxicillin/Potassium Clav [Augmentin 875-125 Tablet] 1 each PO BID #8 tablet COPD: No Dementia: Yes Psychiatric Problems: Yes (ANXIETY,INSOMNIA, DEPRESSION) - Immunization History Td Vaccination: Yes TDAP Vaccination: Yes Immunization Up to Date: Yes - Psycho Social/Smoking Cessation Hx Smoking Status: Yes Smoking History: Former smoker Years of Tobacco Use: 0 Have you smoked in the past 12 months: No Number of Cigarettes Smoked Daily: 20 If you are a former smoker, when did you quit?: 2013 'Breaking Loose' booklet given: 05/07/14 Hx Alcohol Use: No Drug/Substance Use Hx: No Substance Use Type: None Hx Substance Use Treatment: No Review of Systems - Review of Systems Able to Perform ROS?: No Comments:: 01/10/20 17:06 Limited ROS secondary to patients clinical condition. Limitied ROS was obtained by [facility] staff member. No other injuries. *Physical Exam - Vital Signs Last Vital Signs Temp Pulse Resp BP Pulse Ox 98.1 F 77 20 129/87 95 01/10/20 16:22 01/10/20 16:22 01/10/20 16:22 01/10/20 16:22 01/10/20 16:22 ED Treatment Course - Medications Given in the ED: ED Medications Discontinued Medications Generic Name Dose Route Start Last Admin Trade Name Freq PRN Reason Stop Dose Admin Acetaminophen 650 mg 01/10/20 16:53 01/10/20 17:14 Tylenol Oral Solution - PO 01/10/20 16:54 650 mg ONCE ONE Administration Medical Decision Making - Medical Decision Making 01/10/20 18:13 Spoke to daughter, informed of minor injury, and return to nursing facility Called nursing facility at discharge, informing them of treatment and no serious injury. Exam unchanged. Patient remained at baseline mental status, physical condition. Discharge - Discharge Information Problems reviewed: Yes Clinical Impression/Diagnosis: Holbrook chorea Forehead contusion Qualifiers: Encounter type: initial encounter Qualified Code(s): S00.83XA - Contusion of other part of head, initial encounter Condition: Stable Disposition: HOME - Admission No - Follow up/Referral - Patient Discharge Instructions Patient Printed Discharge Instructions: DI for Contusion, DI for Closed Head Injury - Post Discharge Activity
== END 2020-01-10 18:03 | disposition home or self-care (01) ==
LOC: FER 16:21
DX: S00.83XA Contusion of other part of head, initial encounter (principal); W18.39XA Other fall on same level, initial encounter; Y93.89 Activity, other specified; Y92.008 Other place in unspecified non-institutional (private) residence as the place of occurrence of the external cause; G10 Huntington's disease; Z91.011 Allergy to milk products; F41.8 Other specified anxiety disorders; R47.1 Dysarthria and anarthria; F02.80 Dementia in other diseases classified elsewhere, unspecified severity, without behavioral disturbance, psychotic disturbance, mood disturbance, and anxiety
CPT/HCPCS: 99282-25

== ENCOUNTER 2020-01-27 17:47 | Emergency (ER) | payer OTHER, BC ==
[2020-01-27 18:03] VITALS: BP 127/67; PULSE 73; TEMP 98.4; BMI 19.6
--- NOTE | 2020-01-27 18:28 | PDOC ---
History of Present Illness - General Chief Complaint: Injury Stated Complaint: FALL Time Seen by Provider: 01/27/20 17:58 - History of Present Illness Initial Comments: 01/27/20 18:22 Chief complaint: Fall HPI: Patient with severe [place]'s chorea, frequent falls, apparently fell out of her chair immediately [employer]. Nursing staff says she injured her right hip. The patient says that she struck her occiput. There was no loss of consciousness. Review of systems: Denies pain or injury to the neck chest abdomen spine pelvis or extremities. Denies headache or pain in the scalp Past medical history: [place]'s chorea, being treated for pneumonia bronchitis with antibiotics. Social history: Lives in the custodial, unable to move or ambulate on her own due to severe continuous movements over the arms and the legs. Spastic Family history: Unavailable Physical exam: Patient is well-known to the emergency room, and her appearance is normal for her. There is no decreased level of consciousness, drowsiness, or focal neurological symptoms. Afebrile, vital signs normal Head atraumatic. There is no visible or palpable sign of injury including abrasion, laceration, contusion, ecchymosis, or hematoma. PERRLA 4 mm, ENT clear Neck without tenderness or deformity Lungs clear. No chest wall or rib cage tenderness or deformity CV regular without murmur rub or gallop Abdomen soft nontender without mass organomegaly Spine and pelvis without visible or palpable signs of trauma Extremities: Although there is generally increased tone in the arms and the legs, there appears to be no pain with range of motion. There are no visible or palpable deformities. The hips in particular appear to be symmetric in range of motion, internal and external, without sign of pain Impression: No sign of acute injury on examination Plan: Close observation at the facility and return to ER if any further signs develop. Fully alert at discharge. 02/03/20 07:41 Past History - Past Medical History Allergies/Adverse Reactions: Allergies Allergy/AdvReac Type Severity Reaction Status Date / Time lactose AdvReac Verified 06/08/19 01:48 Home Medications: Ambulatory Orders Atropine 1% Ophth. Solution - 1 drop PO TID 06/08/19 Calcium Carb/D3/Magnesium/Zinc [[place] Mag Zinc-D Tablet] 1 each PO DAILY 06/08/19 Citalopram Hydrobromide [Citalopram HBr] 40 mg PO DAILY 06/08/19 Clonazepam 0.5 mg PO TID 06/08/19 Glycopyrrolate 1 mg PO BID 06/08/19 Tetrabenazine [Xenazine] 25 mg PO TID 06/08/19 Vitamin B Complex 1 each PO DAILY 06/08/19 Zolpidem Tartrate [Ambien] 10 mg PO HS 06/08/19 Acetaminophen [Tylenol] 650 mg PO PRN PRN 11/13/19 Amoxicillin/Potassium Clav [Augmentin 875-125 Tablet] 1 each PO BID #8 tablet 11/19/19 COPD: No Dementia: Yes Psychiatric Problems: Yes (ANXIETY,INSOMNIA, DEPRESSION) Other medical history: STEVE'S CHOREA, PNEUMONIA - Immunization History Td Vaccination: Yes TDAP Vaccination: Yes Immunization Up to Date: Yes - Psycho Social/Smoking Cessation Hx Smoking Status: Yes Smoking History: Never smoked Years of Tobacco Use: 0 Have you smoked in the past 12 months: No Number of Cigarettes Smoked Daily: 20 If you are a former smoker, when did you quit?: 2013 Information on smoking cessation initiated: No 'Breaking Loose' booklet given: 05/07/14 Hx Alcohol Use: No Drug/Substance Use Hx: No Substance Use Type: None Hx Substance Use Treatment: No *Physical Exam - Vital Signs Last Vital Signs Temp Pulse Resp BP Pulse Ox 98.4 F 73 20 127/67 98 01/27/20 17:51 01/27/20 17:51 01/27/20 17:51 01/27/20 17:51 01/27/20 17:51 Discharge - Discharge Information Problems reviewed: Yes Clinical Impression/Diagnosis: Steve disease Condition: Stable Disposition: HOME - Admission No - Follow up/Referral Referrals: Vikash Pollard MD [Primary Care Provider] - - Patient Discharge Instructions Patient Printed Discharge Instructions: How to Prevent Falls, DI for Closed Head Injury - Post Discharge Activity
== END 2020-01-27 21:14 | disposition home or self-care (01) ==
LOC: FER 17:47
DX: Z04.3 Encounter for examination and observation following other accident (principal); Z87.891 Personal history of nicotine dependence; Z91.011 Allergy to milk products; B20 Human immunodeficiency virus [HIV] disease; G10 Huntington's disease; F41.8 Other specified anxiety disorders
CPT/HCPCS: 99281-25